=== PATIENT | female | born 1970 | race Caucasian/White ===

== ENCOUNTER 2016-11-11 12:24 | Emergency (ER) | payer MEDICAID ==
[~2016-11-11] VITALS: Ht 147.3 cm; Wt 73.9 kg
[~2016-11-11 12:24] MED LIST: OLANZAPINE5 MG PO
[2016-11-11 12:40] VITALS: BP 127/92
[2016-11-11] MEDS ORDERED: NACL 0.9% 1,000 ML IV ONE (13:20)
--- NOTE | 2016-11-11 13:40 | NUR ---
HEADACHE X2 DAYS WITH VOMITING; DENIES DIARRHEA; SKIN IS PINK/WARM/DRY; AAOX4 WITH EVEN AND STEADY GAIT; LUNGS CLEAR BL; HR EVEN AND REGULAR; PT DENIES ANY FEVER, CP, SOB, OR COUGH AT THIS TIME; PATIENT STATES PAIN OF 2/10 AT THIS TIME; VSS; PATIENT POSITIONED FOR COMFORT; HOB ELEVATED; BEDRAILS UP X2; BED DOWN. ER MADE AWARE OF PT STATUS. Addendum: 11/11/16 at 1610 by MEDARO C/O HEADACHE AND ABDOMINAL PAIN 10/10 X 2 DAYS
[2016-11-11] MEDS ORDERED: KETOROLAC 30 MG/ML VIAL IVP ONE (14:00)
[2016-11-11] MEDS ORDERED: ONDANSETRON 4 MG/2 ML VIAL IVP ONE (15:45)
--- NOTE | 2016-11-11 16:05 | NUR ---
AAO, COOPERATIVE ALBANIAN SPEAKING PT BEING ASSESS BY DR STOCKTON AT BEDSIDE
[2016-11-11 16:45] VITALS: BP 101/70
--- NOTE | 2016-11-11 16:45 | NUR ---
Patient discharged with v/s stable. Written and verbal after care instructions given and explained. Patient alert, oriented and verbalized understanding of instructions. Ambulatory with steady gait. All questions addressed prior to discharge. ID band removed. Patient advised to follow up with PMD. Rx of MOTRIN, ZOFRAN given. Patient educated on indication of medication including possible reaction and side effects. Opportunity to ask questions provided and answered.
== END 2016-11-11 16:45 | disposition home or self-care (01) ==
LOC: MED 12:24
DX: R51 Headache (principal); R11.0 Nausea; R10.13 Epigastric pain; E11.9 Type 2 diabetes mellitus without complications; I10 Essential (primary) hypertension; J02.9 Acute pharyngitis, unspecified; H92.09 Otalgia, unspecified ear; Z88.0 Allergy status to penicillin
CPT/HCPCS: 81002; 81025; 96361; 96374; 96375; 99284; J1885; J2405; J7030

== ENCOUNTER 2016-11-22 08:49 | Emergency (ER) | payer MEDICAID ==
[~2016-11-22] VITALS: Ht 152.4 cm; Wt 73.5 kg
[2016-11-22 09:05] VITALS: BP 134/65
--- NOTE | 2016-11-22 09:05 | NUR ---
Patient to bed 06.
--- NOTE | 2016-11-22 09:08 | NUR ---
46/F BIB SELF C/O BODYACHE X TODAY. PATIENT DENIES N/V/D; SKIN IS PINK/WARM/DRY; AAOX4 WITH EVEN AND STEADY GAIT; LUNGS CLEAR BL; HR EVEN AND REGULAR; PT DENIES ANY FEVER, CP, SOB, OR COUGH AT THIS TIME; PATIENT STATES PAIN OF 9/10 AT THIS TIME; VSS; PATIENT POSITIONED FOR COMFORT; HOB ELEVATED; BEDRAILS UP X2; BED DOWN. ER MD MADE AWARE OF PT STATUS.
--- NOTE | 2016-11-22 09:08 | NUR ---
Note undone in EDM - 11/22/16 at 0925 by [email or web address] 46/F BIB SELF C/O BODY ACH X TODAY. PATIENT DENIES N/V/D; SKIN IS PINK/WARM/DRY; AAOX4 WITH EVEN AND STEADY GAIT; LUNGS CLEAR BL; HR EVEN AND REGULAR; PT DENIES ANY FEVER, CP, SOB, OR COUGH AT THIS TIME; PATIENT STATES PAIN OF 9/10 AT THIS TIME; VSS; PATIENT POSITIONED FOR COMFORT; HOB ELEVATED; BEDRAILS UP X2; BED DOWN. ER MADE AWARE OF PT STATUS.
--- NOTE | 2016-11-22 09:20 | NUR ---
ER MD DR GUTIERREZ EVALUATING PT AT BEDSIDE.
[2016-11-22 10:17] VITALS: BP 122/65
--- NOTE | 2016-11-22 10:17 | NUR ---
Patient discharged with v/s stable. Written and verbal after care instructions given and explained. Patient alert, oriented and verbalized understanding of instructions. Ambulatory with steady gait. All questions addressed prior to discharge. ID band removed. Patient advised to follow up with PMD. Rx of DEXTROMETHORPHAN given. Patient educated on indication of medication including possible reaction and side effects. Opportunity to ask questions provided and answered.
== END 2016-11-22 10:17 | disposition home or self-care (01) ==
LOC: MED 08:49
DX: J30.9 Allergic rhinitis, unspecified (principal); E11.9 Type 2 diabetes mellitus without complications; I10 Essential (primary) hypertension; Z88.0 Allergy status to penicillin

== ENCOUNTER 2016-12-07 08:57 | Emergency (ER) | payer MEDICAID ==
[~2016-12-07] VITALS: Ht 147.3 cm; Wt 67.6 kg
[2016-12-07 09:42] VITALS: BP 113/66
--- NOTE | 2016-12-07 09:45 | NUR ---
LAB WAS DRAWN IMMEDIATELY AFTER TRIAGE--PT PROVIDED URINE SAMPLE. AFTERWARDS PT TO ER LOBBY TO WAIT FOR AVAILABLE ROOM
--- NOTE | 2016-12-07 10:32 | NUR ---
Joyce gonzalez in [facility] - 12/07/16 at 1035 by JUAN MANUEL PT AMBULATED TO BED 4 AT THIS TIME.
--- NOTE | 2016-12-07 10:40 | NUR ---
NO ANSWER OUT IN ER LOBBY
--- NOTE | 2016-12-07 10:46 | NUR ---
patient called from lobby no answer patient is lwbs.
== END 2016-12-07 10:43 | disposition left against medical advice (07) ==
LOC: MED 08:59
DX: R10.9 Unspecified abdominal pain (principal); R11.0 Nausea; Z53.21 Procedure and treatment not carried out due to patient leaving prior to being seen by health care provider

== ENCOUNTER 2016-12-15 13:29 | Emergency (ER) | payer MEDICAID ==
[~2016-12-15] VITALS: Ht 147.3 cm; Wt 73.9 kg
[2016-12-15 13:33] VITALS: BP 105/71
--- NOTE | 2016-12-15 13:39 | NUR ---
PT AMBULATED TO BED 6 AT THIS TIME.
--- NOTE | 2016-12-15 13:40 | NUR ---
46/F BIB SELF C/O HEADACHE X 2-3 DAYS; DENIES TRAUMA OR INJURY TO HEAD AT THIS TIME. PT DENIES N/V/D; SKIN IS PINK/WARM/DRY; AAOX4 WITH EVEN AND STEADY GAIT; LUNGS CLEAR BL; HR EVEN AND REGULAR; PT DENIES ANY FEVER, CP, SOB, OR COUGH AT THIS TIME; PATIENT STATES PAIN OF 10/10 AT THIS TIME; VSS; PATIENT POSITIONED FOR COMFORT; HOB ELEVATED; BEDRAILS UP X2; BED DOWN. ER MD MADE AWARE OF PT STATUS.
[2016-12-15 14:40] VITALS: BP 112/71
--- NOTE | 2016-12-15 14:40 | NUR ---
Patient discharged with v/s stable. Written and verbal after care instructions given and explained. Patient alert, oriented and verbalized understanding of instructions. Ambulatory with steady gait. All questions addressed prior to discharge. ID band removed. Patient advised to follow up with PMD. Rx of DEXTROMETHORPHAN & MOTRIN given. Patient educated on indication of medication including possible reaction and side effects. Opportunity to ask questions provided and answered.
== END 2016-12-15 14:40 | disposition home or self-care (01) ==
LOC: MED 13:29
DX: J06.9 Acute upper respiratory infection, unspecified (principal); I10 Essential (primary) hypertension; E11.9 Type 2 diabetes mellitus without complications; Z88.0 Allergy status to penicillin

== ENCOUNTER 2016-12-22 08:57 | Emergency (ER) | payer MEDICAID ==
[~2016-12-22] VITALS: Ht 157.5 cm; Wt 73.9 kg
[2016-12-22 09:04] VITALS: BP 111/64
--- NOTE | 2016-12-22 09:04 | NUR ---
46/F BIB SELF C/O N/V , RIGHT UPPER ABDOMINAL PAIN X 2 DAYS. SKIN IS PINK/WARM/DRY; AAOX4 WITH EVEN AND STEADY GAIT; LUNGS CLEAR BL; HR EVEN AND REGULAR; PT DENIES ANY FEVER, CP, SOB, OR COUGH AT THIS TIME; PATIENT STATES PAIN OF 10/10 AT THIS TIME; VSS; PATIENT POSITIONED FOR COMFORT; HOB ELEVATED; BEDRAILS UP X2; BED DOWN. ER MD MADE AWARE OF PT STATUS.
[2016-12-22] MEDS ORDERED: KETOROLAC 60 MG/2 ML VIAL IM ONE (09:30)
[2016-12-22] MEDS ORDERED: ONDANSETRON 4 MG ODT PO ONE (09:30)
[2016-12-22 10:36] VITALS: BP 111/64
--- NOTE | 2016-12-22 10:36 | NUR ---
Patient discharged with v/s stable. Written and verbal after care instructions given and explained. Patient alert, oriented and verbalized understanding of instructions. Ambulatory with steady gait. All questions addressed prior to discharge. ID band removed. Patient advised to follow up with PMD. Rx of MOTRIN & ZOFRAN given. Patient educated on indication of medication including possible reaction and side effects. Opportunity to ask questions provided and answered.
== END 2016-12-22 10:36 | disposition home or self-care (01) ==
LOC: MED 08:58
DX: J02.9 Acute pharyngitis, unspecified (principal); R51 Headache; E11.9 Type 2 diabetes mellitus without complications; I10 Essential (primary) hypertension; Z88.0 Allergy status to penicillin
CPT/HCPCS: 81002; 81025; 82948; 96372; 99283; J1885; S0119

== ENCOUNTER 2017-01-04 09:10 | Emergency (ER) | payer MEDICAID ==
[~2017-01-04] VITALS: Ht 147.3 cm; Wt 69.0 kg
[2017-01-04 09:11] VITALS: BP 115/95
--- NOTE | 2017-01-04 11:06 | NUR ---
PATIENT CALLED FROM LOBBY NO ANSWER PATIENT IS LWBS.
== END 2017-01-04 11:06 | disposition left against medical advice (07) ==
LOC: MED 09:10
DX: R52 Pain, unspecified (principal); Z53.21 Procedure and treatment not carried out due to patient leaving prior to being seen by health care provider

== ENCOUNTER 2017-01-12 09:09 | Emergency (ER) | payer MEDICAID ==
[~2017-01-12] VITALS: Ht 154.9 cm; Wt 73.5 kg
[2017-01-12 09:33] VITALS: BP 121/87
--- NOTE | 2017-01-12 10:47 | NUR ---
PATIENT LEFT WITHOUT BEING SEEN BY DR. GUTIERREZ. NO FURTHER CARE PROVIDED FOR PATIENT.
== END 2017-01-12 10:47 | disposition left against medical advice (07) ==
LOC: MED 09:09
DX: R51 Headache (principal); R11.2 Nausea with vomiting, unspecified; Z53.21 Procedure and treatment not carried out due to patient leaving prior to being seen by health care provider

== ENCOUNTER 2017-01-21 08:33 | Emergency (ER) | payer MEDICAID ==
[~2017-01-21] VITALS: Ht 157.5 cm; Wt 72.6 kg
--- NOTE | 2017-01-21 08:54 | NUR ---
Patient ambulated to bed 05.
[2017-01-21 08:56] VITALS: BP 107/78
--- NOTE | 2017-01-21 09:00 | NUR ---
RECEIVED PATIENT ON BED WITH CO NAUSEA,VOMITING AND DIARRHEA FOR 3 DAYS.
--- NOTE | 2017-01-21 09:24 | NUR ---
Dr. Reynoso evaluating patient at bedside.
--- NOTE | 2017-01-21 09:27 | NUR ---
Joyce gonzalez in ED - 01/21/17 at 0928 by MNURML ARDEN UPDATED ABOUT PATIENTS CONDITION.USE OF 4 POINT RESTRAINTS.
[2017-01-21] MEDS ORDERED: ONDANSETRON 4 MG ODT PO ONE (09:35)
[2017-01-21 10:00] VITALS: BP 124/82
--- NOTE | 2017-01-21 10:00 | NUR ---
Patient discharged with v/s stable. Written and verbal after care instructions given and explained. Patient alert, oriented and verbalized understanding of instructions. Ambulatory with steady gait. All questions addressed prior to discharge. ID band removed. Patient advised to follow up with PMD. Rx of ZOFRAN,MOTRIN AND CIPRO given. Patient educated on indication of medication including possible reaction and side effects. Opportunity to ask questions provided and answered.
== END 2017-01-21 10:00 | disposition home or self-care (01) ==
LOC: MED 08:33
DX: R10.13 Epigastric pain (principal); R30.0 Dysuria; R11.2 Nausea with vomiting, unspecified; E11.9 Type 2 diabetes mellitus without complications; I10 Essential (primary) hypertension; Z88.0 Allergy status to penicillin
CPT/HCPCS: 99283; S0119

== ENCOUNTER 2017-02-03 10:07 | Emergency (ER) | payer MEDICAID ==
[~2017-02-03] VITALS: Ht 147.3 cm; Wt 74.8 kg
--- NOTE | 2017-02-03 10:30 | NUR ---
Patient ambulated to bed 06.
[2017-02-03 10:36] VITALS: BP 103/71
--- NOTE | 2017-02-03 10:42 | NUR ---
Dr. Valentino evaluating patient at bedside.
[2017-02-03] MEDS ORDERED: ONDANSETRON 4 MG ODT PO ONE (10:45)
[2017-02-03] MEDS ORDERED: LIDOCAINE VISCOUS 2% 20 ML UDC PO ONE (10:45)
--- NOTE | 2017-02-03 10:57 | NUR ---
46/F presents to ED for evaluation of abdominal pain, sore throat that started this morning. Pt also c/o N/V/D, fever. Pt noted with no vomiting or fever at this time. Abdomen is soft, non tender, hyperactive bowel sounds x4 quadrants. Patient is AOX4, tajik speaking. Ambulates with steady gait. Pt also c/o burning with urination and dysuria. Denies any vaginal bleeding or discharge. VSS
--- NOTE | 2017-02-03 11:15 | NUR ---
Urine dip perform and shown to Dr. Valentino.
--- NOTE | 2017-02-03 11:34 | NUR ---
Patient appears to be resting comfortably in bed. Vital Signs within normal limits. Respirations even and unlabored.
[2017-02-03 12:22] VITALS: BP 119/71
--- NOTE | 2017-02-03 12:23 | NUR ---
Patient discharged with v/s stable. Written and verbal after care instructions given and explained. Patient alert, oriented and verbalized understanding of instructions. Ambulatory with steady gait. All questions addressed prior to discharge. ID band removed. Patient advised to follow up with PMD. Rx of BENTYL, ZOFRAN AND CHLORASCEPTIC given. Patient educated on indication of medication including possible reaction and side effects. Opportunity to ask questions provided and answered.
== END 2017-02-03 12:23 | disposition home or self-care (01) ==
LOC: MED 10:07
DX: B34.9 Viral infection, unspecified (principal); E11.9 Type 2 diabetes mellitus without complications; I10 Essential (primary) hypertension; F17.200 Nicotine dependence, unspecified, uncomplicated; Z71.6 Tobacco abuse counseling; Z88.0 Allergy status to penicillin
CPT/HCPCS: 81002; 81025; 82948; 99283; S0119

== ENCOUNTER 2017-02-13 08:20 | Emergency (ER) | payer MEDICAID ==
[~2017-02-13] VITALS: Ht 147.3 cm; Wt 68.9 kg
[2017-02-13 08:24] VITALS: BP 127/56
[2017-02-13] MEDS ORDERED: NACL 0.9% 1,000 ML IV SCH (08:31)
[2017-02-13] MEDS ORDERED: ONDANSETRON 4 MG/2 ML VIAL IVP ONE (08:35)
[2017-02-13] MEDS ORDERED: FAMOTIDINE 20 MG/2 ML VIAL IVP ONE (08:35)
--- NOTE | 2017-02-13 08:38 | NUR ---
Patient ambulated to bed 06.
--- NOTE | 2017-02-13 08:45 | NUR ---
PATIENT PRESENTS TO ED WITH RUQ PAIN . PT STATES SHE HAS LOOSE STOOL AND VOMITTED TODAY ; SKIN IS PINK/WARM/DRY; AAOX4 WITH EVEN AND STEADY GAIT; LUNGS CLEAR BL; HR EVEN AND REGULAR; PT DENIES ANY FEVER, CP, SOB, OR COUGH AT THIS TIME; PATIENT STATES PAIN OF 7/10 AT THIS TIME; PATIENT POSITIONED FOR COMFORT; HOB ELEVATED; BEDRAILS UP X2; BED DOWN. ER MD MADE AWARE OF PT STATUS.
[2017-02-13 09:00] LABS: BASOPHILS # (AUTO) 0.1 K/uL (0.00-0.22); BASOPHILS % (AUTO) 1.7 % (0.0-2.0); EOSINOPHILS # (AUTO) 0.1 K/uL (0-0.4); HEMATOCRIT 41.5 % (36-48); HEMOGLOBIN 13.7 g/dL (12.0-16.0); LYMPHOCYTES # (AUTO) 2.1 K/uL (2.5-16.5); MEAN CORPUSCULAR HEMOGLOBIN 29 pg (27-31); MEAN CORPUSCULAR HGB CONC 33 g/dL (33-37); MEAN CORPUSCULAR VOLUME 89 fL (80-94); MONOCYTES # (AUTO) 0.4 K/uL (0.8-1.0); MONOCYTES % (AUTO) 4.8 % (1.7-9.3); NEUTROPHILS # (AUTO) 5.5 K/uL (1.8-7.7); NEUTROPHILS % (AUTO) 67.5 % (42.2-75.2); PLATELET COUNT (AUTO) 254 K/uL (140-450); RED BLOOD CELL COUNT(AUTO) 4.66 MIL/uL (4.20-5.40); RED CELL DISTRIBUTION WIDTH 11.7 % (11.6-13.7); WHITE BLOOD COUNT (AUTO) 8.2 K/uL (4.8-10.8)
[2017-02-13 09:15] LABS: ANION GAP 12.2 (8-16); CALCIUM 8.9 mg/dL (8.5-10.1); CARBON DIOXIDE 26.8 mmol/L (21-32); CREATININE 0.8 mg/dL (0.6-1.3)
[2017-02-13 09:20] LABS: ALBUMIN 3.8 g/dL (3.4-5.0); TOTAL BILIRUBIN 0.3 mg/dL (0.0-1.0)
--- NOTE | 2017-02-13 09:21 | NUR ---
PT VERBALIZES DECREASE OF PAIN FROM 7/10 TO 2/10.
--- NOTE | 2017-02-13 09:22 | NUR ---
DR ANDRADE AT [facility].
--- NOTE | 2017-02-13 09:39 | NUR ---
Patient discharged with v/s stable. Written and verbal after care instructions given and explained. Patient alert, oriented and verbalized understanding of instructions. Ambulatory with steady gait. All questions addressed prior to discharge. ID band removed. Patient advised to follow up with PMD. Rx of KEFLEX ANDTYLENOL given. Patient educated on indication of medication including possible reaction and side effects. Opportunity to ask questions provided and answered.ADVISED PT TO INCREASE FLUID INTAKE.
[2017-02-13 09:40] VITALS: BP 126/68
== END 2017-02-13 09:39 | disposition home or self-care (01) ==
LOC: MED 08:20
DX: N30.90 Cystitis, unspecified without hematuria (principal); E11.9 Type 2 diabetes mellitus without complications; I10 Essential (primary) hypertension; F17.210 Nicotine dependence, cigarettes, uncomplicated; Z88.0 Allergy status to penicillin
CPT/HCPCS: 36415; 80053; 81002; 81025; 82150; 82948; 83690; 85025; 96361; 96374; 96375; 99284; J2405; J3490; J7030

== ENCOUNTER 2017-02-17 10:26 | Emergency (ER) | payer MEDICAID ==
[~2017-02-17] VITALS: Ht 147.3 cm; Wt 73.9 kg
[2017-02-17 11:17] VITALS: BP 140/77
--- NOTE | 2017-02-17 12:41 | NUR ---
PATIENT LEFT WITHOUT BEING SEEN BY DR. RIVERA. NO FURTHER CARE PROVIDED FOR PATIENT.
== END 2017-02-17 12:41 | disposition left against medical advice (07) ==
LOC: MED 10:26
DX: R10.9 Unspecified abdominal pain (principal); Z53.21 Procedure and treatment not carried out due to patient leaving prior to being seen by health care provider

== ENCOUNTER 2017-02-24 09:49 | Emergency (ER) | payer MEDICAID ==
[~2017-02-24] VITALS: Ht 147.3 cm; Wt 73.9 kg
--- NOTE | 2017-02-24 09:58 | NUR ---
Patient ambulated to bed 6. ACRYLIC FABRICATOR evaluating patient at bedside.
--- NOTE | 2017-02-24 09:59 | NUR ---
Dr. Valentino evaluating patient at bedside.
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
[2017-02-24 10:03] VITALS: BP 138/75
[2017-02-24] MEDS ORDERED: DICYCLOMINE HCL LIQUID 10 MG/5 ML UDC PO ONE (10:10)
[2017-02-24] MEDS ORDERED: DIPHENOXYLATE /ATROPINE 2.5 MG TAB PO ONE (10:10)
[2017-02-24 10:46] VITALS: BP 138/75
--- NOTE | 2017-02-24 10:48 | NUR ---
Patient discharged with v/s stable. Written and verbal after care instructions given and explained. Patient alert, oriented and verbalized understanding of instructions. Ambulatory with steady gait. All questions addressed prior to discharge. ID band removed. Patient advised to follow up with PMD. Rx of BENTYL AND ZOFRAN given. Patient educated on indication of medication including possible reaction and side effects. Opportunity to ask questions provided and answered.
== END 2017-02-24 10:38 | disposition home or self-care (01) ==
LOC: MED 09:51
DX: R19.7 Diarrhea, unspecified (principal); R10.9 Unspecified abdominal pain; E11.9 Type 2 diabetes mellitus without complications; I10 Essential (primary) hypertension; Z88.0 Allergy status to penicillin
CPT/HCPCS: 99283

== ENCOUNTER 2017-03-10 07:15 | Emergency (ER) | payer MEDICAID ==
[~2017-03-10] VITALS: Ht 147.3 cm; Wt 69.4 kg
[2017-03-10 07:21] VITALS: BP 104/76
[2017-03-10 08:11] VITALS: BP 104/76
== END 2017-03-10 08:00 | disposition home or self-care (01) ==
LOC: MED 07:15
DX: J06.9 Acute upper respiratory infection, unspecified (principal); E11.9 Type 2 diabetes mellitus without complications; Z88.0 Allergy status to penicillin
CPT/HCPCS: 99281

== ENCOUNTER 2017-04-23 10:10 | Emergency (ER) | payer MEDICAID ==
[~2017-04-23] VITALS: Ht 144.8 cm; Wt 66.7 kg
[2017-04-23 10:24] VITALS: BP 108/76
[2017-04-23] MEDS ORDERED: ONDANSETRON 4 MG ODT PO ONE (10:30)
--- NOTE | 2017-04-23 10:30 | NUR ---
pt ambulate to restroom.
--- NOTE | 2017-04-23 10:50 | NUR ---
47F BIB SELF C/O VOMITING X 2 DAYS, ALSO C/O SALES TODAY. HX: PT DENIES. RX: P DENIES
--- NOTE | 2017-04-23 11:53 | NUR ---
Patient being evaluated by physician at bedside.
[2017-04-23 12:05] VITALS: BP 110/72
--- NOTE | 2017-04-23 12:05 | NUR ---
Patient discharged with v/s stable. Written and verbal after care instructions given and explained. Patient alert, oriented and verbalized understanding of instructions. Ambulatory with steady gait. All questions addressed prior to discharge. ID band removed. Patient advised to follow up with PMD. Rx of cipro and zofran given. Patient educated on indication of medication including possible reaction and side effects. Opportunity to ask questions provided and answered.
== END 2017-04-23 12:05 | disposition home or self-care (01) ==
LOC: MED 10:10
DX: N39.0 Urinary tract infection, site not specified (principal); R11.2 Nausea with vomiting, unspecified; Z88.0 Allergy status to penicillin; E11.9 Type 2 diabetes mellitus without complications; I10 Essential (primary) hypertension
CPT/HCPCS: 81002; 81025; 99283; S0119

== ENCOUNTER 2017-05-02 08:09 | Emergency (ER) | payer MEDICAID ==
[~2017-05-02] VITALS: Ht 144.8 cm; Wt 67.6 kg
[2017-05-02 08:17] VITALS: BP 103/77
--- NOTE | 2017-05-02 08:17 | NUR ---
PT AMBULATED TO BED 6.
--- NOTE | 2017-05-02 08:17 | NUR ---
47/F c/o N/V/D x3 days. Also c/o mouth pain, bilateral ear pain and throat pain. No vomiting noted while pt in ED. Pt c/o 10/10 pain, unable to describe pain. AOX4, guyanese speaking, calm and cooperative at this time. Skin warm and dry, normal in color for ethnicity. Afebrile. Abdomen soft, non tender active bowel sounds x4 quadrants. VSS.
[2017-05-02] MEDS ORDERED: ONDANSETRON 4 MG ODT PO ONE (08:20)
--- NOTE | 2017-05-02 08:20 | NUR ---
Patient ambulated to bed 6. RN evaluating patient at bedside.
--- NOTE | 2017-05-02 09:21 | NUR ---
Patient being evaluated by Dr. Rios at bedside.
[2017-05-02 10:14] VITALS: BP 103/77
== END 2017-05-02 09:21 | disposition home or self-care (01) ==
LOC: MED 08:09
DX: K52.9 Noninfective gastroenteritis and colitis, unspecified (principal); E11.9 Type 2 diabetes mellitus without complications; I10 Essential (primary) hypertension; Z88.0 Allergy status to penicillin
CPT/HCPCS: 99283; S0119

== ENCOUNTER 2017-05-15 12:15 | Emergency (ER) | payer MEDICAID ==
[~2017-05-15] VITALS: Ht 154.9 cm; Wt 74.8 kg
[2017-05-15 12:17] VITALS: BP 101/65
--- NOTE | 2017-05-15 15:03 | NUR ---
PATIENT CALLED FROM LOBBY NO ANSWER PATIEN IS LWBS.
== END 2017-05-15 15:03 | disposition left against medical advice (07) ==
LOC: MED 12:15
DX: R51 Headache (principal); Z53.21 Procedure and treatment not carried out due to patient leaving prior to being seen by health care provider; Z88.0 Allergy status to penicillin

== ENCOUNTER 2017-05-20 10:36 | Emergency (ER) | payer MEDICAID ==
[~2017-05-20] VITALS: Ht 147.3 cm; Wt 67.4 kg
[2017-05-20 10:43] VITALS: BP 112/67
--- NOTE | 2017-05-20 11:05 | NUR ---
PT C/O NAUSEA X THIS AM----DENIES EMESIS,DENIES ABDOMINAL PAIN, DENIES DYSURIA . DENIES DIARRHEA ; SKIN IS PINK/WARM/DRY; AAOX4 WITH EVEN AND STEADY GAIT; LUNGS CLEAR BL; HR EVEN AND REGULAR; PT DENIES ANY FEVER, CP, SOB, OR COUGH AT THIS TIME; PATIENT STATES PAIN OF 0/10 AT THIS TIME; VSS; PATIENT POSITIONED FOR COMFORT; HOB ELEVATED; BEDRAILS UP X2; BED DOWN. ER MD MADE AWARE OF PT STATUS.
[2017-05-20 11:59] VITALS: BP 112/67
== END 2017-05-20 12:00 | disposition home or self-care (01) ==
LOC: MED 10:36
DX: K52.9 Noninfective gastroenteritis and colitis, unspecified (principal); Z88.0 Allergy status to penicillin; J45.909 Unspecified asthma, uncomplicated; E11.9 Type 2 diabetes mellitus without complications; I10 Essential (primary) hypertension; F20.9 Schizophrenia, unspecified
CPT/HCPCS: 99283

== ENCOUNTER 2017-05-28 16:46 | Emergency (ER) | payer MEDICAID ==
[~2017-05-28] VITALS: Ht 147.3 cm; Wt 73.9 kg
[2017-05-28 17:10] VITALS: BP 122/71
--- NOTE | 2017-05-28 18:48 | NUR ---
CALLED TO A BED NO ANSWER
== END 2017-05-28 18:48 | disposition left against medical advice (07) ==
LOC: MED 16:46
DX: R11.2 Nausea with vomiting, unspecified (principal); Z53.21 Procedure and treatment not carried out due to patient leaving prior to being seen by health care provider

== ENCOUNTER 2017-05-30 15:49 | Inpatient (IN) | payer MEDICAID ==
[~2017-05-30] VITALS: Ht 160 cm; Wt 70.8 kg
[2017-05-30 15:50] VITALS: BP 115/74
[2017-05-30 16:10] LABS: BASOPHILS # (AUTO) 0.3 K/uL (0.00-0.22); BASOPHILS % (AUTO) 3.2 % (0.0-2.0); EOSINOPHILS # (AUTO) 0.2 K/uL (0-0.4); EOSINOPHILS % (AUTO) 1.7 % (0.0-4.0); HEMATOCRIT 37.8 % (36-48); HEMOGLOBIN 12.4 g/dL (12.0-16.0); LYMPHOCYTES # (AUTO) 1.4 K/uL (2.5-16.5); LYMPHOCYTES % (AUTO) 14.1 % (20.5-51.1); MEAN CORPUSCULAR HEMOGLOBIN 29 pg (27-31); MEAN CORPUSCULAR HGB CONC 33 g/dL (33-37); MEAN CORPUSCULAR VOLUME 90 fL (80-94); MONOCYTES # (AUTO) 0.2 K/uL (0.8-1.0); MONOCYTES % (AUTO) 2.3 % (1.7-9.3); NEUTROPHILS # (AUTO) 8.1 K/uL (1.8-7.7); NEUTROPHILS % (AUTO) 78.7 % (42.2-75.2); PLATELET COUNT (AUTO) 267 K/uL (140-450); RED BLOOD CELL COUNT(AUTO) 4.21 MIL/uL (4.20-5.40); WHITE BLOOD COUNT (AUTO) 10.2 K/uL (4.8-10.8)
[2017-05-30 16:25] LABS: ANION GAP 16.9 (8-16); CARBON DIOXIDE 21.9 mmol/L (21-32); CHLORIDE 107 mmol/L (98-107); GFR ARICAN-AMERICAN 76 mL/min (>90); GLUCOSE 123 mg/dL (74-106); POTASSIUM 3.8 mmol/L (3.5-5.1); SODIUM SERUM 142 mmol/L (136-145); UREA NITROGEN, BLOOD 19 mg/dL (7-18)
[2017-05-30 16:33] LABS: ALBUMIN 4.1 g/dL (3.4-5.0); ASPARTATE AMINOTRANSFERASE 21 U/L (15-37); TOTAL BILIRUBIN 0.5 mg/dL (0.0-1.0)
[2017-05-30 16:35] LABS: ACETAMINOPHEN < 0.5 ug/ml (10-30); SALICYLATE < 2.8 mg/dL (2.8-20.0)
[2017-05-30] MEDS ORDERED: NACL 0.9% 1,000 ML IV ONE (16:55)
[2017-05-30 17:17] LABS: BARBITURATE, URINE NEG. ng/ml (NEG <=200); BENZODIAZEPINE, URINE NEG. ng/mL (NEG <=200); CANNABINOID, URINE NEG. ng/mL (NEG <=50); COCAINE, URINE NEG. ng/mL (NEG <=300); OPIATE, URINE NEG. ng/mL (NEG <=2000); PHENCYCLIDINE SCREEN,URINE NEG. ng/mL (NEG <=25)
[2017-05-30 17:35] LABS: APPEARANCE,URINE HAZY (CLEAR); BILIRUBIN,URINE NEGATIVE (NEGATIVE); BLOOD, URINE TRACE-I (NEGATIVE); COLOR,URINE YELLOW (YELLOW); LEUKOCYTE ESTERASE ,URINE NEGATIVE (NEGATIVE); NITRITE, URINE NEGATIVE (NEGATIVE); UGLUCOSE NEGATIVE (NEGATIVE)
[2017-05-30] MEDS ORDERED: KETOROLAC 30 MG/ML VIAL IVP ONE (17:35)
[2017-05-30] MEDS ORDERED: ONDANSETRON 4 MG/2 ML VIAL IVP ONE (17:35)
[2017-05-30 17:37] LABS: RBC,URINE 0-5 /HPF (0-5); WBC,URINE 0-5 /HPF (0-5)
[2017-05-30 17:38] LABS: HYALINE CASTS, URINE 0-10 /LPF (None Seen)
[2017-05-30] MEDS: NACL 0.9% 1,000 ML IV SCH (18:01)
[2017-05-30] MEDS ORDERED: DOCUSATE SODIUM 100 MG GELCAP PO PRN (18:05)
[2017-05-30] MEDS ORDERED: HYDROcodone/APAP 7.5/325 MG 1 TAB PO PRN (18:05)
[2017-05-30] MEDS ORDERED: MORPHINE SULFATE 2 MG/ML SYR IVP PRN (18:05)
[2017-05-30] MEDS ORDERED: ONDANSETRON 4 MG/2 ML VIAL IM/IVP PRN (18:05)
[2017-05-30 18:30] VITALS: BP 124/55
[2017-05-30] MEDS ORDERED: MECLIZINE 25 MG TAB PO ONE (18:30)
[2017-05-30 18:46] LABS: CHOL/HDL RATIO 3.9 (1-4.5); FREE T4 (FREE THYROXINE) 1.1 ng/dL (0.76-1.46); MAGNESIUM 1.7 mg/dL (1.8-2.4); THYROID STIMULATING HORMONE 1.06 uIU/mL (0.34-3.74)
[2017-05-30] MEDS ORDERED: SODIUM PHOS / POTASSIUM PHOS 1 PKT PDR PO SCH (19:05)
[2017-05-30] MEDS ORDERED: MAG SULF 2000 MG/WATER PREMIX 50 ML IV ONE (19:05)
[2017-05-30 20:00] VITALS: BP 128/76
[2017-05-30] MEDS ORDERED: INSULIN LISPRO SLIDING SCALE 100 UNITS/ML VIAL SUBQ PRN (20:50)
[2017-05-31] VITALS: BP 105/52
[2017-05-31] MEDS: NACL 0.9% 1,000 ML IV SCH ×3 (03:07→21:19)
[2017-05-31 04:00] VITALS: BP 100/71
[2017-05-31 05:25] LABS: BASOPHILS # (AUTO) 0.1 K/uL (0.00-0.22); BASOPHILS % (AUTO) 1.5 % (0.0-2.0); EOSINOPHILS # (AUTO) 0.2 K/uL (0-0.4); EOSINOPHILS % (AUTO) 1.7 % (0.0-4.0); HEMATOCRIT 35.9 % (36-48); LYMPHOCYTES # (AUTO) 3.1 K/uL (2.5-16.5); MEAN CORPUSCULAR HEMOGLOBIN 30 pg (27-31); MEAN CORPUSCULAR HGB CONC 34 g/dL (33-37); MEAN CORPUSCULAR VOLUME 90 fL (80-94); MONOCYTES # (AUTO) 0.6 K/uL (0.8-1.0); MONOCYTES % (AUTO) 6.1 % (1.7-9.3); NEUTROPHILS % (AUTO) 59.7 % (42.2-75.2); PLATELET COUNT (AUTO) 252 K/uL (140-450); RED CELL DISTRIBUTION WIDTH 12.1 % (11.6-13.7)
[2017-05-31 06:05] LABS: ANION GAP 15.1 (8-16); CARBON DIOXIDE 25.6 mmol/L (21-32); CREATININE 0.7 mg/dL (0.6-1.3); MAGNESIUM 2.7 mg/dL (1.8-2.4); PHOSPHORUS 2.5 mg/dL (2.5-4.9); POTASSIUM 3.7 mmol/L (3.5-5.1)
[2017-05-31] MEDS: BLOOD GLUCOSE MONITORING 1 DEV DEV FS SCH ×4 (06:44→21:18)
[2017-05-31 08:00] VITALS: BP 98/58
[2017-05-31] MEDS: ATORVASTATIN 20 MG TAB PO SCH (08:16)
[2017-05-31] MEDS: ASPIRIN 81 MG TAB.CHEW PO SCH (08:17)
[2017-05-31] MEDS ORDERED: ATORVASTATIN 20 MG TAB PO SCH (09:00)
[2017-05-31] MEDS ORDERED: QUEtiapine FUMARATE 25 MG TAB PO SCH (11:07)
[2017-05-31 12:00] VITALS: BP 101/42
[2017-05-31 16:00] VITALS: BP 100/78
[2017-05-31 20:00] VITALS: BP 100/53
[2017-05-31] MEDS: QUEtiapine FUMARATE 25 MG TAB PO SCH (21:17)
[2017-06-01] VITALS: BP 95/53
[2017-06-01] MEDS: NACL 0.9% 1,000 ML IV SCH ×3 (01:11→16:30)
[2017-06-01] MEDS: BLOOD GLUCOSE MONITORING 1 DEV DEV FS SCH ×4 (06:23→20:50)
[2017-06-01 06:25] LABS: HEMATOCRIT 32.4 % (36-48); HEMOGLOBIN 10.7 g/dL (12.0-16.0); MEAN CORPUSCULAR HEMOGLOBIN 30 pg (27-31); MEAN CORPUSCULAR HGB CONC 33 g/dL (33-37); MEAN CORPUSCULAR VOLUME 90 fL (80-94); PLATELET COUNT (AUTO) 196 K/uL (140-450); RED CELL DISTRIBUTION WIDTH 12.9 % (11.6-13.7); WHITE BLOOD COUNT (AUTO) 6.9 K/uL (4.8-10.8)
[2017-06-01 06:37] LABS: ANION GAP 11.3 (8-16); CREATININE 0.6 mg/dL (0.6-1.3); POTASSIUM 4.3 mmol/L (3.5-5.1)
[2017-06-01 06:39] LABS: PHOSPHORUS 2.8 mg/dL (2.5-4.9)
[2017-06-01 07:02] LABS: EOSINOPHILS % (MANUAL) 3 % (0-4); LYMPHOCYTES % (MANUAL) 50 % (20-46); MONOCYTES % (MANUAL) 5 % (5-12)
[2017-06-01 08:00] VITALS: BP 103/56
[2017-06-01] MEDS: ASPIRIN 81 MG TAB.CHEW PO SCH (08:04)
[2017-06-01] MEDS: ATORVASTATIN 20 MG TAB PO SCH (08:04)
[2017-06-01] MEDS: QUEtiapine FUMARATE 25 MG TAB PO SCH ×2 (08:04→20:50)
[2017-06-01] MEDS: CALCIUM CARB/VIT-D 500 MG/200 IU 1 TAB PO SCH ×2 (12:17→17:10)
[2017-06-01 16:00] VITALS: BP 127/82
[2017-06-01] MEDS: ACETAMINOPHEN 325 MG TAB PO PRN ×2 (16:27→20:50)
[2017-06-02] MEDS: NACL 0.9% 1,000 ML IV SCH ×2 (00:37→08:34)
[2017-06-02 01:06] VITALS: BP 114/77
[2017-06-02] MEDS: BLOOD GLUCOSE MONITORING 1 DEV DEV FS SCH ×2 (07:13→11:28)
[2017-06-02 08:00] VITALS: BP 102/50
[2017-06-02] MEDS: QUEtiapine FUMARATE 25 MG TAB PO SCH (08:32)
[2017-06-02] MEDS: ATORVASTATIN 20 MG TAB PO SCH (08:32)
[2017-06-02] MEDS: ASPIRIN 81 MG TAB.CHEW PO SCH (08:32)
[2017-06-02] MEDS: CALCIUM CARB/VIT-D 500 MG/200 IU 1 TAB PO SCH ×2 (08:32→12:12)
[2017-06-02] MEDS ORDERED: QUET200T PO (10:29)
== END 2017-06-02 15:35 | disposition home or self-care (01) | DRG 48 ==
LOC: MED 15:49 → MTU 17:56
PROVIDERS: ADMIT Family Medicine; ATTEND Family Medicine
DX: G90.9 Disorder of the autonomic nervous system, unspecified (principal); G93.41 Metabolic encephalopathy; E83.42 Hypomagnesemia; E83.39 Other disorders of phosphorus metabolism; E10.43 Type 1 diabetes mellitus with diabetic autonomic (poly)neuropathy; R55 Syncope and collapse; K59.00 Constipation, unspecified; E83.51 Hypocalcemia; E78.5 Hyperlipidemia, unspecified; W18.39XA Other fall on same level, initial encounter; F20.9 Schizophrenia, unspecified; F32.9 Major depressive disorder, single episode, unspecified; J45.909 Unspecified asthma, uncomplicated; I10 Essential (primary) hypertension; N83.202 Unspecified ovarian cyst, left side; N83.201 Unspecified ovarian cyst, right side; Z88.0 Allergy status to penicillin; Y93.89 Activity, other specified; Y92.89 Other specified places as the place of occurrence of the external cause
CPT/HCPCS: 36415; 36600; 70450; 71010; 72125; 80048; 80053; 80305; 81001; 81025; 82150; 82803; 82948; 83036; 83690; 83735; 83880; 84100; 84436; 84439; 84443; 84479; 84484; 85025; 85610; 85730; 87081; 93005; 93880; 93925; 93970; 96374; 96375; 99285; C1758; G0480; G0482; J1815; J1885; J2405; J3475; J7030; Q0092

== ENCOUNTER 2017-06-12 17:03 | Emergency (ER) | payer MEDICAID ==
[~2017-06-12] VITALS: Ht 157.5 cm; Wt 67.6 kg
[~2017-06-12 17:03] MED LIST changes: -OLANZAPINE5 MG PO; +QUET200T PO
--- NOTE | 2017-06-12 17:03 | NUR ---
Patient BIBA ACLS, transferred to bed 5. RN evaluating patient at bedside.
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
[2017-06-12 17:11] VITALS: BP 111/66
--- NOTE | 2017-06-12 18:04 | NUR ---
PT DENIES ANY PAIN AT THIS TIME.Patient appears to be resting comfortably in bed. Vital Signs within normal limits. Respirations even and unlabored.WILL CONTINUE TO MONITOR.
[2017-06-12 18:20] LABS: APPEARANCE,URINE CLEAR (CLEAR); BILIRUBIN,URINE NEGATIVE (NEGATIVE); BLOOD, URINE NEGATIVE (NEGATIVE); COLOR,URINE YELLOW (YELLOW); LEUKOCYTE ESTERASE ,URINE NEGATIVE (NEGATIVE); NITRITE, URINE NEGATIVE (NEGATIVE); PH,URINE 6.5 (5.0-9.0); UGLUCOSE NEGATIVE (NEGATIVE)
[2017-06-12 18:23] VITALS: BP 109/75
--- NOTE | 2017-06-12 18:23 | NUR ---
Patient discharged with v/s stable. Written and verbal after care instructions given and explained. Patient verbalized understanding. Ambulatory with steady gait. All questions addressed prior to discharge. Advised to follow up with PMD.
== END 2017-06-12 18:23 | disposition home or self-care (01) ==
LOC: MED 17:03
DX: R30.0 Dysuria (principal); J45.909 Unspecified asthma, uncomplicated; E11.9 Type 2 diabetes mellitus without complications; I10 Essential (primary) hypertension; Z88.0 Allergy status to penicillin; Z79.899 Other long term (current) drug therapy
CPT/HCPCS: 81003; 81025; 99283

== ENCOUNTER 2017-08-17 07:43 | Emergency (ER) | payer MEDICAID ==
[~2017-08-17] VITALS: Ht 147.3 cm; Wt 65.3 kg
[2017-08-17 07:54] VITALS: BP 122/71
--- NOTE | 2017-08-17 08:10 | NUR ---
ASSUMED PATIENT CARE, CONCUR WITH TRIAGE ASSESSMENTS. PATIENT ENDORSING 2 DAYS OF N/V/D, FEVER, AND GENERALIZED MALAISE. PLACED IN ER 12. ORIENTED TO PLAN OF CARE.
[2017-08-17] MEDS ORDERED: ONDANSETRON 4 MG ODT PO ONE (08:55)
[2017-08-17] MEDS ORDERED: KETOROLAC 60 MG/2 ML VIAL IM ONE (08:55)
--- NOTE | 2017-08-17 09:01 | NUR ---
SEEN AND EVALUATED BY PROVIDER, MSE COMPLETED.
--- NOTE | 2017-08-17 09:20 | NUR ---
MEDICATED FOR PAIN AND NAUSEA PER MD ORDER, WILL REEVALUATE ACCORDINGLY.
[2017-08-17 09:38] VITALS: BP 99/72
--- NOTE | 2017-08-17 09:39 | NUR ---
DC HOME WITH INSTRUCTIONS AND PRESCRIPTIONS, PATIENT ENDORSING UNDERSTANDING OF ALL INSTRUCTIONS, VERBALIZING RELIEF FROM SYMPTOMS, VSWNL, NO DISTRESS. DC HOME AMBULATORY.
== END 2017-08-17 09:39 | disposition home or self-care (01) ==
LOC: MED 07:43
DX: J02.9 Acute pharyngitis, unspecified (principal); R51 Headache; R11.2 Nausea with vomiting, unspecified; E11.9 Type 2 diabetes mellitus without complications; I10 Essential (primary) hypertension; Z88.0 Allergy status to penicillin; Z79.899 Other long term (current) drug therapy
CPT/HCPCS: 81002; 81025; 96372; 99283; J1885; S0119

== ENCOUNTER 2017-09-18 09:32 | Emergency (ER) | payer MEDICAID ==
[~2017-09-18] VITALS: Ht 157.5 cm; Wt 72.6 kg
--- NOTE | 2017-09-18 09:32 | NUR ---
Patient was BIBA and taken to bed 02 via gurney per EMS.
[2017-09-18 09:33] VITALS: BP 127/84
--- NOTE | 2017-09-18 09:34 | NUR ---
47 /F BIB EMS FROM FIELD FOR FIELD FOR FALL WITH ABRASION TO NOSE AND SWOLLEN LIP. DENIES LOC.PER EMS PT DRANK BEER.DENIES N/V/D; SKIN IS PINK/WARM/DRY; AAOX4. LUNGS CLEAR BL; HR EVEN AND REGULAR; P PATIENT STATES PAIN OF 5/10 AT THIS TIME; PATIENT POSITIONED FOR COMFORT; HOB ELEVATED; BEDRAILS UP X2; BED DOWN. ER MD MADE AWARE OF PT STATUS.
--- NOTE | 2017-09-18 09:51 | NUR ---
Patient being evaluated by DR GUTIERREZ at bedside.
[2017-09-18] MEDS ORDERED: ONDANSETRON 4 MG/2 ML VIAL IM ONE (09:55)
[2017-09-18 10:36] VITALS: BP 132/77
--- NOTE | 2017-09-18 10:36 | NUR ---
Patient discharged with v/s stable. Written and verbal after care instructions given and explained. Patient alert, oriented and verbalized understanding of instructions. Ambulatory with steady gait. All questions addressed prior to discharge. ID band removed. Patient advised to follow up with PMD. Rx of ZOFRAN ODT given. Patient educated on indication of medication including possible reaction and side effects. Opportunity to ask questions provided and answered.
== END 2017-09-18 10:36 | disposition home or self-care (01) ==
LOC: MED 09:32
DX: S00.33XA Contusion of nose, initial encounter (principal); S00.81XA Abrasion of other part of head, initial encounter; E11.9 Type 2 diabetes mellitus without complications; I10 Essential (primary) hypertension; Z88.0 Allergy status to penicillin; A08.4 Viral intestinal infection, unspecified; W18.30XA Fall on same level, unspecified, initial encounter; Y93.89 Activity, other specified; Y92.89 Other specified places as the place of occurrence of the external cause; Y99.8 Other external cause status
CPT/HCPCS: 70160; 96372; 99284; J2405

== ENCOUNTER 2017-10-20 09:03 | Emergency (ER) | payer MEDICAID ==
[~2017-10-20] VITALS: Ht 144.8 cm; Wt 64.4 kg
[2017-10-20 09:13] VITALS: BP 127/86
--- NOTE | 2017-10-20 09:15 | NUR ---
PT TAKEN TO BED 1.
--- NOTE | 2017-10-20 09:19 | NUR ---
PATIENT PRESENTS TO ED WITH c/o N/V/ AND DIARRHEA W/ ABD PAIN . PT STATES SHE HAS SALES TOO.SKIN IS PINK/WARM/DRY; AAOX4 WITH EVEN AND STEADY GAIT; LUNGS CLEAR BL; HR EVEN AND REGULAR; PT DENIES ANY FEVER, CP, SOB, OR COUGH AT THIS TIME; PATIENT STATES PAIN OF 10/10 AT THIS TIME;PATIENT POSITIONED FOR COMFORT; MD WILL BE NOTIFIED;
--- NOTE | 2017-10-20 09:48 | NUR ---
DR NG EVALUATING PT.
[2017-10-20 10:00] VITALS: BP 108/58
--- NOTE | 2017-10-20 10:00 | NUR ---
Patient discharged with v/s stable. Written and verbal after care instructions given and explained. Patient alert, oriented and verbalized understanding of instructions. Ambulatory with steady gait. All questions addressed prior to discharge. ID band removed. Patient advised to follow up with PMD. Rx of PROMETHAZINE AND SYNALAR TOPICAL OINTMENT given. Patient educated on indication of medication including possible reaction and side effects. Opportunity to ask questions provided and answered.
== END 2017-10-20 10:00 | disposition home or self-care (01) ==
LOC: MED 09:03
DX: S30.861A Insect bite (nonvenomous) of abdominal wall, initial encounter (principal); B34.9 Viral infection, unspecified; E11.9 Type 2 diabetes mellitus without complications; I10 Essential (primary) hypertension; Z88.0 Allergy status to penicillin; W57.XXXA Bitten or stung by nonvenomous insect and other nonvenomous arthropods, initial encounter; Y93.89 Activity, other specified; Y92.89 Other specified places as the place of occurrence of the external cause; Y99.8 Other external cause status
CPT/HCPCS: 99283

== ENCOUNTER 2017-10-27 08:30 | Emergency (ER) | payer MEDICAID ==
[~2017-10-27] VITALS: Ht 144.8 cm; Wt 64.4 kg
[2017-10-27 08:46] VITALS: BP 115/97
--- NOTE | 2017-10-27 08:50 | NUR ---
Pt taken to bed 4.
--- NOTE | 2017-10-27 09:01 | NUR ---
PT PRESENTS TO ER WITH C/O NAUSEA, MID EPIGASTRIC PAIN X 1 WEEK, WORSENING THIS AM. DENIES CHEST PAIN OR SOB. ABD SOFT, NT, ROUND. RESP EVEN AND UNLABORED, IN NAD.
--- NOTE | 2017-10-27 11:29 | NUR ---
DR HÉCTOR SLOAN FOR EXAM
[2017-10-27 12:04] VITALS: BP 136/72
--- NOTE | 2017-10-27 12:04 | NUR ---
Patient discharged with v/s stable. Written and verbal after care instructions given and explained. Patient alert, oriented and verbalized understanding of instructions. Ambulatory with steady gait. All questions addressed prior to discharge. ID band removed. Patient advised to follow up with PMD. Rx of ZOFRAN, IBUPROFEN given. Patient educated on indication of medication including possible reaction and side effects. Opportunity to ask questions provided and answered.
== END 2017-10-27 12:04 | disposition home or self-care (01) ==
LOC: MED 08:30
DX: K52.9 Noninfective gastroenteritis and colitis, unspecified (principal); F20.9 Schizophrenia, unspecified; E11.9 Type 2 diabetes mellitus without complications; I10 Essential (primary) hypertension; Z88.0 Allergy status to penicillin
CPT/HCPCS: 99283

== ENCOUNTER 2017-11-18 11:41 | Emergency (ER) | payer MEDICAID ==
[~2017-11-18] VITALS: Ht 157.5 cm; Wt 72.6 kg
[2017-11-18 11:44] VITALS: BP 115/85
--- NOTE | 2017-11-18 12:00 | NUR ---
PT AMBULATED TO [facility] ROOM FOR AVAILABLE ROOM FOR MD WAN
--- NOTE | 2017-11-18 12:20 | NUR ---
NO ANSWER IN ER LOBBY
--- NOTE | 2017-11-18 12:30 | NUR ---
NO ANSWER IN ER LOBBY
== END 2017-11-18 12:38 | disposition left against medical advice (07) ==
LOC: MED 11:41
DX: R10.9 Unspecified abdominal pain (principal); Z53.21 Procedure and treatment not carried out due to patient leaving prior to being seen by health care provider

== ENCOUNTER 2017-12-02 15:05 | Emergency (ER) | payer MEDICAID ==
[~2017-12-02] VITALS: Ht 144.8 cm; Wt 65.8 kg
[2017-12-02 15:20] VITALS: BP 107/66
[2017-12-02] MEDS ORDERED: KETOROLAC 30 MG/ML VIAL IM ONE (15:55)
[2017-12-02 17:19] VITALS: BP 114/63
== END 2017-12-02 17:19 | disposition home or self-care (01) ==
LOC: MED 15:05
DX: R51 Headache (principal); B34.9 Viral infection, unspecified; E11.9 Type 2 diabetes mellitus without complications; I10 Essential (primary) hypertension; Z79.899 Other long term (current) drug therapy; Z88.0 Allergy status to penicillin
CPT/HCPCS: 82948; 96372; 99283; J1885

== ENCOUNTER 2017-12-31 11:34 | Emergency (ER) | payer MEDICAID ==
[~2017-12-31] VITALS: Ht 154.9 cm; Wt 67.6 kg
[2017-12-31 11:37] VITALS: BP 132/84
--- NOTE | 2017-12-31 11:50 | NUR ---
PT. ARRIVED C/O OF NON RADIATING GENERALIZED ABD PAIN , ABD IS SOFT NON TENDER TO TOUCH , LAST BM WAS ON 12/30/17, COMPLAINS OF NAUSEA FOR ABOUT 3 DAYS AND VOMITING FOR 1 DAYS , WITH NO DIAHRRHEA, LMP 3 WEEKS AGO. COMPLAINS OF GRADUAL FRONTAL HEADACHE THAT DOES NOT RADIATE WITH NO VISUAL CHANGES, ABLE TO FOLLOW PEN WITH EYES , NO COMPLAINTS OF DIZZINESS AT THE MOMENT .. PT. REPORTS A PAIN OF 10/10 . AAAX4. MEDICAL HX OF HTN AND DM, AND STATES TO BE ALLERGIC TO PCN.
[2017-12-31] MEDS ORDERED: NACL 0.9% 1,000 ML IV ONE (12:00)
[2017-12-31] MEDS ORDERED: KETOROLAC 30 MG/ML VIAL IVP ONE (12:00)
[2017-12-31] MEDS ORDERED: ONDANSETRON 4 MG/2 ML VIAL IVP ONE (12:00)
--- NOTE | 2017-12-31 12:23 | NUR ---
NO ACUTE CHNAGES IN CONDITION, PT IN NAD, WITH EYES CLOSEDM, EASILY AROUSABLE. VSS
[2017-12-31 12:27] LABS: BASOPHILS # (AUTO) 0.3 K/uL (0.00-0.22); BASOPHILS % (AUTO) 3.9 % (0.0-2.0); EOSINOPHILS % (AUTO) 0.6 % (0.0-4.0); HEMATOCRIT 39.4 % (36-48); HEMOGLOBIN 13.2 g/dL (12.0-16.0); LYMPHOCYTES # (AUTO) 2.1 K/uL (2.5-16.5); LYMPHOCYTES % (AUTO) 27.6 % (20.5-51.1); MEAN CORPUSCULAR HEMOGLOBIN 28 pg (27-31); MEAN CORPUSCULAR HGB CONC 33 g/dL (33-37); MEAN CORPUSCULAR VOLUME 84.1 fL (80-94); MONOCYTES # (AUTO) 0.4 K/uL (0.8-1.0); MONOCYTES % (AUTO) 5.3 % (1.7-9.3); NEUTROPHILS # (AUTO) 4.6 K/uL (1.8-7.7); NEUTROPHILS % (AUTO) 62.6 % (42.2-75.2); PLATELET COUNT (AUTO) 275 K/uL (140-450); RED BLOOD CELL COUNT(AUTO) 4.68 MIL/uL (4.20-5.40); RED CELL DISTRIBUTION WIDTH 15.4 % (11.6-13.7); WHITE BLOOD COUNT (AUTO) 7.4 K/uL (4.8-10.8)
[2017-12-31 12:33] LABS: APPEARANCE,URINE CLEAR (CLEAR); BILIRUBIN,URINE NEGATIVE (NEGATIVE); BLOOD, URINE TRACE-L (NEGATIVE); COLOR,URINE YELLOW (YELLOW); LEUKOCYTE ESTERASE ,URINE NEGATIVE (NEGATIVE); NITRITE, URINE NEGATIVE (NEGATIVE); UGLUCOSE NEGATIVE (NEGATIVE)
[2017-12-31 12:34] LABS: ANION GAP 11.3 (8-16); CARBON DIOXIDE 31.8 mmol/L (21-32); CREATININE 0.7 mg/dL (0.6-1.3); POTASSIUM 4.1 mmol/L (3.5-5.1)
[2017-12-31 12:36] LABS: BARBITURATE, URINE NEG. ng/ml (NEG <=200); BENZODIAZEPINE, URINE NEG. ng/mL (NEG <=200); CANNABINOID, URINE NEG. ng/mL (NEG <=50); COCAINE, URINE NEG. ng/mL (NEG <=300); OPIATE, URINE NEG. ng/mL (NEG <=2000); PHENCYCLIDINE SCREEN,URINE NEG. ng/mL (NEG <=25)
[2017-12-31 12:40] LABS: ALBUMIN 3.8 g/dL (3.4-5.0); TOTAL BILIRUBIN 0.4 mg/dL (0.0-1.0)
[2017-12-31 12:43] LABS: RBC,URINE 0-5 (RARE) /HPF (0-5); WBC,URINE 0-5 (RARE) /HPF (0-5)
--- NOTE | 2017-12-31 14:11 | NUR ---
PT REPORTS FEELING BETTER, VSS. DR RAMOS UPDATED ON CONDITION.
--- NOTE | 2017-12-31 14:21 | NUR ---
INFLUENZA RESULTS NEGATIVE NOTIFIED
[2017-12-31 14:34] VITALS: BP 104/58
--- NOTE | 2017-12-31 14:35 | NUR ---
Patient discharged with v/s stable. Written and verbal after care instructions given and explained. Patient alert, oriented and verbalized understanding of instructions. Ambulatory with steady gait. All questions addressed prior to discharge. ID band removed. Patient advised to follow up with PMD. Rx of ZOFRAN 4MG given. Patient educated on indication of medication including possible reaction and side effects. Opportunity to ask questions provided and answered.
--- NOTE | 2018-01-13 08:35 | NUR ---
CLARIFIED; IVF 0.9% NACL 1000ML WIDE OPEN VIA L AC 22G. START TIME AT 1245 ON 12/31/17, AND END TIME AT 1400 ON 12/31/17.
== END 2017-12-31 14:35 | disposition home or self-care (01) ==
LOC: MED 11:34
DX: R11.2 Nausea with vomiting, unspecified (principal); R10.9 Unspecified abdominal pain; R51 Headache; E11.9 Type 2 diabetes mellitus without complications; I10 Essential (primary) hypertension; Z79.899 Other long term (current) drug therapy; Z88.0 Allergy status to penicillin
CPT/HCPCS: 36415; 74176; 80053; 80305; 81001; 81025; 83690; 85025; 87804; 96361; 96374; 96375; 99285; J1885; J2405

== ENCOUNTER 2018-01-19 14:00 | Emergency (ER) | payer MEDICAID ==
[~2018-01-19] VITALS: Ht 167.6 cm; Wt 72.6 kg
[2018-01-19 14:05] VITALS: BP 125/73
[2018-01-19 16:02] VITALS: BP 123/72
== END 2018-01-19 16:02 | disposition home or self-care (01) ==
LOC: MED 14:00
DX: R11.10 Vomiting, unspecified (principal); R19.7 Diarrhea, unspecified; R10.9 Unspecified abdominal pain; F20.9 Schizophrenia, unspecified; Z88.0 Allergy status to penicillin
CPT/HCPCS: 81002; 99283

== ENCOUNTER 2018-02-16 10:51 | Emergency (ER) | payer MEDICAID ==
[~2018-02-16] VITALS: Ht 147.3 cm; Wt 65.5 kg
[2018-02-16 10:57] VITALS: BP 116/84
--- NOTE | 2018-02-16 11:01 | NUR ---
PT AMBULATES BACK TO THE LOBBY
--- NOTE | 2018-02-16 11:30 | NUR ---
PT AMBULATED TO BED 9
--- NOTE | 2018-02-16 11:35 | NUR ---
PT. CAME INTO ED W/ C/O LOWER ABD PAIN AND DIAHRRHEA X 2 DAYS. PT. STATES " I HAVE HAD DIAHRRHEA FOR 2 DAYS I HAVE ONLY GONE ONCE TODAY AND ALSO MY LOWER STOMACH HURTS AND I JUST CAME BACK FROM [place] BUT DID NOT DRINK". PT. HAS 5/10 PAIN IN HER LOWER ABD THAT IS NON RADIATING AND DESCRIBED SHARP. DENIES N/V, PT HAS HAD DIAHRRHEA FOR 2 DAYS AND SAYS " I HAVE ONLY GONE ONCE TODAY" SHE DENIES HAVING ANY BLOOD IN HER STOOL. AAOX4, RR EVEN AND UNLABORED, DENIES SOB, DENIES CHEST PAIN. ER MD NOTIFIED. WILL CONTINUE TO MONITOR.
--- NOTE | 2018-02-16 12:27 | NUR ---
XRAY AT BEDSIDE
[2018-02-16 12:56] LABS: APPEARANCE,URINE HAZY (CLEAR); BILIRUBIN,URINE 1+ (NEGATIVE); BLOOD, URINE 1+ (NEGATIVE); COLOR,URINE YELLOW (YELLOW); LEUKOCYTE ESTERASE ,URINE TRACE (NEGATIVE); NITRITE, URINE NEGATIVE (NEGATIVE); UGLUCOSE NEGATIVE (NEGATIVE)
[2018-02-16 13:00] VITALS: BP 122/84
--- NOTE | 2018-02-16 13:00 | NUR ---
Patient discharged with v/s stable. Written and verbal after care instructions given and explained. Patient alert, oriented and verbalized understanding of instructions. Ambulatory with steady gait. All questions addressed prior to discharge. ID band removed. Patient advised to follow up with PMD. Rx of MACROBID given. Patient educated on indication of medication including possible reaction and side effects. Opportunity to ask questions provided and answered.
[2018-02-16 13:31] LABS: RBC,URINE NONE SEEN /HPF (0-5)
== END 2018-02-16 13:00 | disposition home or self-care (01) ==
LOC: MED 10:51
DX: N39.0 Urinary tract infection, site not specified (principal); R19.7 Diarrhea, unspecified; I10 Essential (primary) hypertension; E11.9 Type 2 diabetes mellitus without complications; Z88.0 Allergy status to penicillin
CPT/HCPCS: 74018; 81001; 81025; 87086; 99285

== ENCOUNTER 2018-03-06 07:41 | Emergency (ER) | payer MEDICAID ==
[~2018-03-06] VITALS: Ht 152.4 cm; Wt 66.7 kg
[2018-03-06 07:53] VITALS: BP 119/71
--- NOTE | 2018-03-06 07:57 | NUR ---
gave report to Lew POWELL
--- NOTE | 2018-03-06 07:58 | NUR ---
PATIENT AMBULATED TO BED 1.
--- NOTE | 2018-03-06 08:02 | NUR ---
PT. CAME INTO THE ED W/ C/O THROAT AND EAR PAIN X 3 DAYS. PT. STATES " MY THROAT AND EARS HURT AND I HAVE NOT BEEN FEELING WELL". PT. DENIES COUGH, DENIES FEVER. PT. DENIES VOMITING BUT DOES STATE "I HAVE BEEN NAUSEOUS X 2 DAYS". PT. SAYS SHE IS ABLE TO EAT AND DRINK AND HAS NOT HAD A DECREASED APPETITE. PT. IS AAOX4, RR EVEN AND UNLABORED. PT. HAS 10/10 PAIN IN HER THROAT AND EARS. PT. STATES ALLERGY TO PCN AND STATES THAT SHE SUFFERS FROM HTN, DM , AND ASTHMA, WHEN ASKED WHAT MEDICATIONS SHE TOOK SHE SAID " I DONT KNOW THE ONES FROM THE FAMILY". ER MD NOTIFIED. WILL CONTINUE TO MONITOR. PT. IS SITTING IN CHAIR.
[2018-03-06] MEDS ORDERED: METOCLOPRAMIDE 10 MG/2 ML INJ VIAL IVP ONE (08:25)
[2018-03-06] MEDS ORDERED: ACETAMINOPHEN EXTRA STRENGTH 500 MG TAB PO ONE (08:25)
[2018-03-06] MEDS ORDERED: NACL 0.9% 1,000 ML IV ONE (08:25)
--- NOTE | 2018-03-06 08:30 | NUR ---
THROAT SWAB FOR STREP AND NOSE SWAB FOR INFLUENZA OBTAINED. TOLERATED WELL
[2018-03-06] MEDS ORDERED: FAMOTIDINE 20 MG/2 ML VIAL IVP ONE (08:40)
[2018-03-06 08:54] LABS: BASOPHILS % (AUTO) 0.6 % (0.0-2.0); EOSINOPHILS % (AUTO) 0.7 % (0.0-4.0); HEMATOCRIT 39.1 % (36-48); HEMOGLOBIN 12.9 g/dL (12.0-16.0); LYMPHOCYTES # (AUTO) 2.1 K/uL (2.5-16.5); LYMPHOCYTES % (AUTO) 34.3 % (20.5-51.1); MEAN CORPUSCULAR HEMOGLOBIN 29 pg (27-31); MEAN CORPUSCULAR HGB CONC 33 g/dL (33-37); MEAN CORPUSCULAR VOLUME 88.6 fL (80-94); MONOCYTES # (AUTO) 0.3 K/uL (0.8-1.0); MONOCYTES % (AUTO) 5.1 % (1.7-9.3); NEUTROPHILS # (AUTO) 3.6 K/uL (1.8-7.7); NEUTROPHILS % (AUTO) 59.3 % (42.2-75.2); PLATELET COUNT (AUTO) 212 K/uL (140-450); RED BLOOD CELL COUNT(AUTO) 4.41 MIL/uL (4.20-5.40); RED CELL DISTRIBUTION WIDTH 13.2 % (11.6-13.7)
[2018-03-06 08:55] LABS: BILIRUBIN,URINE NEGATIVE (NEGATIVE); BLOOD, URINE 2+ (NEGATIVE); COLOR,URINE YELLOW (YELLOW); LEUKOCYTE ESTERASE ,URINE NEGATIVE (NEGATIVE); NITRITE, URINE NEGATIVE (NEGATIVE); PH,URINE 5.5 (5.0-9.0); UGLUCOSE NEGATIVE (NEGATIVE)
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
[2018-03-06 09:02] LABS: APPEARANCE,URINE SLIGHTLY HAZY (CLEAR)
[2018-03-06 09:04] LABS: RBC,URINE 3-10 (FEW) /HPF (0-5); WBC,URINE 0-5 (RARE) /HPF (0-5)
--- NOTE | 2018-03-06 09:40 | NUR ---
PT. RESTING COMFORTABLY IN BED RR EVEN AND UNLABORED, BED IN LOWEST POSITION, NS BOLUS RUNNING ACCORDINGLY W/O COMPLICATIONS , NO COMPLAINTS AT THIS TIME.WILL CONTINUE TO MONITOR.
[2018-03-06 10:16] LABS: ALBUMIN 3.7 g/dL (3.4-5.0); ANION GAP 11.9 (8-16); CARBON DIOXIDE 24.7 mmol/L (21-32); CREATININE 0.7 mg/dL (0.6-1.3); POTASSIUM 3.6 mmol/L (3.5-5.1); TOTAL BILIRUBIN 0.4 mg/dL (0.0-1.0)
[2018-03-06 10:36] VITALS: BP 120/74
--- NOTE | 2018-03-06 10:36 | NUR ---
Patient discharged with v/s stable. Written and verbal after care instructions given and explained. Patient alert, oriented and verbalized understanding of instructions. Ambulatory with steady gait. All questions addressed prior to discharge. ID band removed. Patient advised to follow up with PMD. Rx of ZOFRAN, TYLENOL EXTRA STRENGTH, PROMETHAZINE given. Patient educated on indication of medication including possible reaction and side effects. Opportunity to ask questions provided and answered.
== END 2018-03-06 10:36 | disposition home or self-care (01) ==
LOC: MED 07:41
DX: A08.4 Viral intestinal infection, unspecified (principal); J06.9 Acute upper respiratory infection, unspecified; J45.909 Unspecified asthma, uncomplicated; E11.9 Type 2 diabetes mellitus without complications; I10 Essential (primary) hypertension; Z88.0 Allergy status to penicillin
CPT/HCPCS: 36415; 80053; 81001; 81025; 85025; 87081; 87804; 96361; 96374; 96375; 99284; J2765; J3490; J7030

== ENCOUNTER 2018-03-19 15:44 | Emergency (ER) | payer MEDICAID ==
[~2018-03-19] VITALS: Ht 162.6 cm; Wt 68.0 kg
[2018-03-19 15:51] VITALS: BP 104/54
[2018-03-19] MEDS ORDERED: diphenhydrAMINE 50 MG/ML VIAL IVP ONE (16:35)
[2018-03-19] MEDS ORDERED: NACL 0.9% 1,000 ML IV SCH (16:35)
[2018-03-19] MEDS ORDERED: KETOROLAC 30 MG/ML VIAL IVP ONE (16:35)
[2018-03-19] MEDS ORDERED: HALOPERIDOL IM 5 MG/ML VIAL IVP ONE (16:40)
[2018-03-19 17:08] LABS: BASOPHILS % (AUTO) 0.5 % (0.0-2.0); EOSINOPHILS % (AUTO) 0.6 % (0.0-4.0); LYMPHOCYTES # (AUTO) 2.2 K/uL (2.5-16.5); LYMPHOCYTES % (AUTO) 30.1 % (20.5-51.1); MEAN CORPUSCULAR HEMOGLOBIN 30 pg (27-31); MEAN CORPUSCULAR HGB CONC 34 g/dL (33-37); MEAN CORPUSCULAR VOLUME 86.1 fL (80-94); MONOCYTES # (AUTO) 0.5 K/uL (0.8-1.0); MONOCYTES % (AUTO) 6.1 % (1.7-9.3); NEUTROPHILS # (AUTO) 4.7 K/uL (1.8-7.7); NEUTROPHILS % (AUTO) 62.7 % (42.2-75.2); PLATELET COUNT (AUTO) 220 K/uL (140-450); RED BLOOD CELL COUNT(AUTO) 4.41 MIL/uL (4.20-5.40); RED CELL DISTRIBUTION WIDTH 12.6 % (11.6-13.7); WHITE BLOOD COUNT (AUTO) 7.4 K/uL (4.8-10.8)
[2018-03-19 17:27] LABS: ALBUMIN 3.6 g/dL (3.4-5.0); ANION GAP 13.1 (8-16); CREATININE 0.8 mg/dL (0.6-1.3); POTASSIUM 4.1 mmol/L (3.5-5.1); TOTAL BILIRUBIN 0.3 mg/dL (0.0-1.0)
[2018-03-19 18:42] VITALS: BP 136/80
[2018-03-19 18:46] LABS: APPEARANCE,URINE CLEAR (CLEAR); BILIRUBIN,URINE NEGATIVE (NEGATIVE); BLOOD, URINE NEGATIVE (NEGATIVE); COLOR,URINE YELLOW (YELLOW); LEUKOCYTE ESTERASE ,URINE NEGATIVE (NEGATIVE); NITRITE, URINE NEGATIVE (NEGATIVE); PH,URINE 6.5 (5.0-9.0); UGLUCOSE NEGATIVE (NEGATIVE)
== END 2018-03-19 18:42 | disposition home or self-care (01) ==
LOC: MED 15:44
DX: R11.2 Nausea with vomiting, unspecified (principal); R19.7 Diarrhea, unspecified; R10.9 Unspecified abdominal pain; F25.9 Schizoaffective disorder, unspecified; J45.909 Unspecified asthma, uncomplicated; I10 Essential (primary) hypertension; E11.9 Type 2 diabetes mellitus without complications; Z88.0 Allergy status to penicillin
CPT/HCPCS: 36415; 80053; 81003; 82150; 83690; 85025; 96361; 96374; 96375; 99284; J1200; J1630; J1885; J7030

== ENCOUNTER 2018-04-16 12:34 | Emergency (ER) | payer MEDICAID ==
[~2018-04-16] VITALS: Ht 147.3 cm; Wt 73.5 kg
[2018-04-16 12:39] VITALS: BP 140/52
--- NOTE | 2018-04-16 12:53 | NUR ---
48 YO F TO ER FOR R UPPER TOOTH PAIN SINCE THIS MORNING. PT DENIES ANY TRAUMA. PT DENIES N/V/D/FEVER/CHILLS. PT AAOX4. GCS 15. CMS INTACT. RR EVEN AND UNLABORED. LUNGS BILATERALLY CLEAR. ABD SOFT, NON-TENDER. ER MD NOTIFIED. PT NEEDS MET. SAFETY PRECAUTIONS IN PLACE. WILL CONTINUE TO MONITOR.
--- NOTE | 2018-04-16 12:56 | NUR ---
ER MD EVALUATING PT AT BEDSIDE AT THIS TIME.
[2018-04-16 13:05] VITALS: BP 130/61
--- NOTE | 2018-04-16 13:05 | NUR ---
Note artiinna in EDM - 04/16/18 at 1307 by [email or web address] Patient discharged with v/s stable. Written and verbal after care instructions given and explained. Patient alert, oriented and verbalized understanding of instructions. Ambulatory with steady gait. All questions addressed prior to discharge. ID band removed. Patient advised to follow up with PMD. Rx of Zofran and penicillin given. Patient educated on indication of medication including possible reaction and side effects. Opportunity to ask questions provided and answered.
--- NOTE | 2018-04-16 13:07 | NUR ---
pt allergic to penicillin, er md notified. will amend discharge note if new order prescribed.
--- NOTE | 2018-04-16 13:41 | NUR ---
Patient discharged with v/s stable. Written and verbal after care instructions given and explained. Patient alert, oriented and verbalized understanding of instructions. Ambulatory with steady gait. All questions addressed prior to discharge. ID band removed. Patient advised to follow up with PMD. Rx of Zofran and Clindamycin given. Patient educated on indication of medication including possible reaction and side effects. Opportunity to ask questions provided and answered.
== END 2018-04-16 13:07 | disposition home or self-care (01) ==
LOC: MED 12:34
DX: K08.89 Other specified disorders of teeth and supporting structures (principal); F20.9 Schizophrenia, unspecified; J45.909 Unspecified asthma, uncomplicated; E11.9 Type 2 diabetes mellitus without complications; I10 Essential (primary) hypertension; Z79.899 Other long term (current) drug therapy; Z88.0 Allergy status to penicillin
CPT/HCPCS: 99283

== ENCOUNTER 2018-06-02 12:05 | Emergency (ER) | payer MEDICAID ==
[~2018-06-02] VITALS: Ht 142.2 cm; Wt 66.2 kg
[2018-06-02 12:14] VITALS: BP 91/62
--- NOTE | 2018-06-02 12:27 | NUR ---
PATIENT IS A 48 YO FEMALE BIB SELF FOR THROAT AND EAR PAIN, AWAKE AND ALERT MULTIPLE ER VISITS FOR COMMON COMPLAINTS. NO DISTRESS NOTED.
--- NOTE | 2018-06-02 13:01 | NUR ---
Patient appears to be resting comfortably in bed. Vital Signs within normal limits. Respirations even and unlabored.WILL CONTINUE TO MONITOR.
--- NOTE | 2018-06-02 13:35 | NUR ---
Patient being evaluated by DR HAMPTON at bedside.
[2018-06-02 14:35] LABS: APPEARANCE,URINE CLEAR (CLEAR); BILIRUBIN,URINE NEGATIVE (NEGATIVE); BLOOD, URINE TRACE-L (NEGATIVE); COLOR,URINE YELLOW (YELLOW); LEUKOCYTE ESTERASE ,URINE NEGATIVE (NEGATIVE); NITRITE, URINE NEGATIVE (NEGATIVE); UGLUCOSE NEGATIVE (NEGATIVE)
[2018-06-02 14:54] LABS: RBC,URINE 0-5 (RARE) /HPF (0-5); WBC,URINE 0-5 (RARE) /HPF (0-5)
[2018-06-02 15:24] VITALS: BP 106/61
--- NOTE | 2018-06-02 15:24 | NUR ---
Patient discharged with v/s stable. Written and verbal after care instructions given and explained. Patient alert, oriented and verbalized understanding of instructions. Ambulatory with steady gait. All questions addressed prior to discharge. ID band removed. Patient advised to follow up with PMD. Rx of ROBITUSSIN given. Patient educated on indication of medication including possible reaction and side effects. Opportunity to ask questions provided and answered.
== END 2018-06-02 15:24 | disposition home or self-care (01) ==
LOC: MED 12:05
DX: J06.9 Acute upper respiratory infection, unspecified (principal); J45.909 Unspecified asthma, uncomplicated; E11.9 Type 2 diabetes mellitus without complications; I10 Essential (primary) hypertension; Z88.0 Allergy status to penicillin; Z79.899 Other long term (current) drug therapy
CPT/HCPCS: 81001; 82948; 99283

== ENCOUNTER 2018-07-06 09:11 | Emergency (ER) | payer MEDICAID ==
[~2018-07-06] VITALS: Ht 152.4 cm; Wt 73.5 kg
--- NOTE | 2018-07-06 09:12 | NUR ---
PT BIBA TO ER BED 07
[2018-07-06 09:20] VITALS: BP 121/79
--- NOTE | 2018-07-06 09:24 | NUR ---
PATIENT PRESENTS TO ED WITH THE CHIEF C/O VOMITING . PT STATES VOMITING TARTED SINCE THIS MORNING. PT SATTED SHE IS NAUSATED HAS DIARRHEA TOO. SKIN IS PINK/WARM/DRY; AAOX4 WITH EVEN AND STEADY GAIT; LUNGS CLEAR BL; HR EVEN AND REGULAR; PT DENIES ANY FEVER, CP, SOB, OR COUGH AT THIS TIME; PATIENT STATES ABDOMINAL PAIN OF 10/10 AT THIS TIME; VSS; PATIENT POSITIONED FOR COMFORT; HOB ELEVATED; BEDRAILS UP X2; BED DOWN. ER MD MADE AWARE OF PT STATUS.
[2018-07-06] MEDS ORDERED: NACL 0.9% 1,000 ML IV SCH (09:36)
[2018-07-06] MEDS ORDERED: NACL 0.9% 1,000 ML IV ONE (09:36)
[2018-07-06] MEDS ORDERED: ONDANSETRON 4 MG/2 ML VIAL IVP ONE (09:40)
[2018-07-06 10:31] LABS: BASOPHILS % (AUTO) 0.3 % (0.0-2.0); EOSINOPHILS % (AUTO) 0.4 % (0.0-4.0); HEMATOCRIT 39.7 % (36-48); HEMOGLOBIN 13.4 g/dL (12.0-16.0); LYMPHOCYTES # (AUTO) 2.1 K/uL (2.5-16.5); LYMPHOCYTES % (AUTO) 23.8 % (20.5-51.1); MEAN CORPUSCULAR HEMOGLOBIN 30 pg (27-31); MEAN CORPUSCULAR HGB CONC 34 g/dL (33-37); MEAN CORPUSCULAR VOLUME 89.5 fL (80-94); MONOCYTES # (AUTO) 0.5 K/uL (0.8-1.0); MONOCYTES % (AUTO) 6.3 % (1.7-9.3); NEUTROPHILS % (AUTO) 69.2 % (42.2-75.2); PLATELET COUNT (AUTO) 213 K/uL (140-450); RED BLOOD CELL COUNT(AUTO) 4.43 MIL/uL (4.20-5.40); RED CELL DISTRIBUTION WIDTH 13.3 % (11.6-13.7); WHITE BLOOD COUNT (AUTO) 8.7 K/uL (4.8-10.8)
[2018-07-06 10:34] LABS: APPEARANCE,URINE CLEAR (CLEAR); BILIRUBIN,URINE NEGATIVE (NEGATIVE); BLOOD, URINE TRACE-I (NEGATIVE); COLOR,URINE YELLOW (YELLOW); LEUKOCYTE ESTERASE ,URINE NEGATIVE (NEGATIVE); NITRITE, URINE NEGATIVE (NEGATIVE); PH,URINE 6.5 (5.0-9.0); UGLUCOSE NEGATIVE (NEGATIVE)
--- NOTE | 2018-07-06 10:47 | NUR ---
RESTING IN BED COMFORTABLY. VERBALIZED DECREASED PAIN. VS WNL. WILL CONTINUE TO MONITOR.
[2018-07-06 11:05] LABS: ALBUMIN 3.8 g/dL (3.4-5.0); ANION GAP 7.1 (8-16); CARBON DIOXIDE 28.9 mmol/L (21-32); CREATININE 0.7 mg/dL (0.6-1.3); MAGNESIUM 1.7 mg/dL (1.8-2.4); PHOSPHORUS 3.1 mg/dL (2.5-4.9); TOTAL BILIRUBIN 0.3 mg/dL (0.0-1.0)
[2018-07-06 11:24] LABS: RBC,URINE 0-5 (RARE) /HPF (0-5); WBC,URINE 0-5 (RARE) /HPF (0-5)
[2018-07-06] MEDS ORDERED: ACETAMINOPHEN EXTRA STRENGTH 500 MG TAB PO ONE (11:25)
--- NOTE | 2018-07-06 12:10 | NUR ---
SPOKE TO CHRIS SHEIKH ,PSYCHIATRIST GAVE NEEDED INFORMATION FOR TELEPSYCH. CONSULT.
[2018-07-06] MEDS ORDERED: LORazepam 2 MG/ML VIAL IVP ONE (12:55)
[2018-07-06 14:10] LABS: SALICYLATE < 2.8 mg/dL (2.8-20.0)
[2018-07-06 14:21] LABS: BARBITURATE, URINE NEG. ng/ml (NEG <=200); BENZODIAZEPINE, URINE NEG. ng/mL (NEG <=200); CANNABINOID, URINE NEG. ng/mL (NEG <=50); COCAINE, URINE NEG. ng/mL (NEG <=300); OPIATE, URINE NEG. ng/mL (NEG <=2000); PHENCYCLIDINE SCREEN,URINE NEG. ng/mL (NEG <=25)
--- NOTE | 2018-07-06 15:24 | NUR ---
Patient discharged with v/s stable. Written and verbal after care instructions given and explained. Patient alert, oriented and verbalized understanding of instructions. Ambulatory with steady gait. All questions addressed prior to discharge. ID band removed. Patient advised to follow up with PMD. Rx of SEROQUEL AND ZOFRAN given. Patient educated on indication of medication including possible reaction and side effects. Opportunity to ask questions provided and answered.
[2018-07-06 15:25] VITALS: BP 95/50
== END 2018-07-06 15:24 | disposition home or self-care (01) ==
LOC: MED 09:11
DX: R44.0 Auditory hallucinations (principal); R11.2 Nausea with vomiting, unspecified; R19.7 Diarrhea, unspecified; R51 Headache; E11.9 Type 2 diabetes mellitus without complications; I10 Essential (primary) hypertension; Z88.0 Allergy status to penicillin; Z79.899 Other long term (current) drug therapy
CPT/HCPCS: 36415; 70450; 74177; 80053; 80305; 81001; 81025; 82948; 83690; 83735; 84100; 84484; 84703; 85025; 93005; 96361; 96374; 96375; 99285; G0480; G0482; J2060; J2405; J7030; Q9967

== ENCOUNTER 2018-07-18 09:22 | Emergency (ER) | payer MEDICAID ==
[~2018-07-18] VITALS: Ht 154.9 cm; Wt 72.6 kg
[2018-07-18 09:33] VITALS: BP 103/66
[2018-07-18 10:59] VITALS: BP 99/70
== END 2018-07-18 11:00 | disposition home or self-care (01) ==
LOC: MED 09:22
DX: J06.9 Acute upper respiratory infection, unspecified (principal); E11.9 Type 2 diabetes mellitus without complications; I10 Essential (primary) hypertension; E78.00 Pure hypercholesterolemia, unspecified; F20.9 Schizophrenia, unspecified; Z88.0 Allergy status to penicillin; Z79.899 Other long term (current) drug therapy
CPT/HCPCS: 99283

== ENCOUNTER 2018-07-30 08:47 | Emergency (ER) | payer MEDICAID ==
[~2018-07-30] VITALS: Ht 147.3 cm; Wt 72.6 kg
[2018-07-30 08:52] VITALS: BP 150/98
--- NOTE | 2018-07-30 08:57 | NUR ---
PATIENT BIB AMBULANCE TO ED WITH THE CHIEF C/O HEADACHE AND THROAT PAIN. PT STATES PAIN STARTED 2 DAYS AGO. HAS NAUSEA. DENIES V/D; SKIN IS PINK/WARM/DRY; AAOX2 WITH EVEN AND STEADY GAIT; LUNGS CLEAR BL; HR EVEN AND REGULAR; PT DENIES ANY FEVER, CP, SOB, OR COUGH AT THIS TIME; PATIENT STATES PAIN OF 10/10 AT THIS TIME; VSS; PATIENT POSITIONED FOR COMFORT; HOB ELEVATED; BEDRAILS UP X2; BED DOWN. ER MD MADE AWARE OF PT STATUS.
--- NOTE | 2018-07-30 08:59 | NUR ---
Dr. Carrion evaluating patient at bedside.
--- NOTE | 2018-07-30 09:55 | NUR ---
Pt. appeaars to be relaxed lying in bed comfortably. VS WNL. Denies nausea, pain at this time. Will continue to monitor.
[2018-07-30 10:13] LABS: BASOPHILS % (AUTO) 0.5 % (0.0-2.0); EOSINOPHILS # (AUTO) 0.1 K/uL (0-0.4); EOSINOPHILS % (AUTO) 1.2 % (0.0-4.0); HEMATOCRIT 38.5 % (36-48); HEMOGLOBIN 12.7 g/dL (12.0-16.0); LYMPHOCYTES # (AUTO) 2.6 K/uL (2.5-16.5); LYMPHOCYTES % (AUTO) 34.2 % (20.5-51.1); MEAN CORPUSCULAR HEMOGLOBIN 30 pg (27-31); MEAN CORPUSCULAR HGB CONC 33 g/dL (33-37); MEAN CORPUSCULAR VOLUME 90.9 fL (80-94); MONOCYTES # (AUTO) 0.5 K/uL (0.8-1.0); MONOCYTES % (AUTO) 5.9 % (1.7-9.3); NEUTROPHILS # (AUTO) 4.4 K/uL (1.8-7.7); NEUTROPHILS % (AUTO) 58.2 % (42.2-75.2); PLATELET COUNT (AUTO) 217 K/uL (140-450); RED BLOOD CELL COUNT(AUTO) 4.24 MIL/uL (4.20-5.40); RED CELL DISTRIBUTION WIDTH 13.3 % (11.6-13.7); WHITE BLOOD COUNT (AUTO) 7.6 K/uL (4.8-10.8)
[2018-07-30 10:33] LABS: ANION GAP 11.1 (8-16); CARBON DIOXIDE 24.3 mmol/L (21-32); POTASSIUM 4.4 mmol/L (3.5-5.1)
[2018-07-30 10:40] LABS: BILIRUBIN,URINE NEGATIVE (NEGATIVE); BLOOD, URINE NEGATIVE (NEGATIVE); COLOR,URINE YELLOW (YELLOW); LEUKOCYTE ESTERASE ,URINE NEGATIVE (NEGATIVE); NITRITE, URINE NEGATIVE (NEGATIVE); UGLUCOSE NEGATIVE (NEGATIVE)
[2018-07-30 10:41] LABS: ACETAMINOPHEN 5.9 ug/ml (10-30); ALBUMIN 3.4 g/dL (3.4-5.0); TOTAL BILIRUBIN 0.4 mg/dL (0.0-1.0)
[2018-07-30 10:56] LABS: BARBITURATE, URINE NEG. ng/ml (NEG <=200); BENZODIAZEPINE, URINE NEG. ng/mL (NEG <=200); CANNABINOID, URINE NEG. ng/mL (NEG <=50); COCAINE, URINE NEG. ng/mL (NEG <=300); PHENCYCLIDINE SCREEN,URINE NEG. ng/mL (NEG <=25)
[2018-07-30 10:57] LABS: APPEARANCE,URINE CLEAR (CLEAR); RBC,URINE 0-5 (RARE) /HPF (0-5); WBC,URINE 0-5 (RARE) /HPF (0-5)
[2018-07-30 11:13] VITALS: BP 109/41
[2018-07-30 11:39] LABS: OPIATE, URINE NEG. ng/mL (NEG <=2000)
== END 2018-07-30 11:11 | disposition home or self-care (01) ==
LOC: MED 08:47
DX: J02.9 Acute pharyngitis, unspecified (principal); E11.9 Type 2 diabetes mellitus without complications; I10 Essential (primary) hypertension; F20.9 Schizophrenia, unspecified; F12.10 Cannabis abuse, uncomplicated; Z88.0 Allergy status to penicillin; Z79.899 Other long term (current) drug therapy
CPT/HCPCS: 36415; 80053; 80305; 81001; 81025; 85025; 99284; G0480

== ENCOUNTER 2018-08-22 08:14 | Emergency (ER) | payer MEDICAID ==
[~2018-08-22] VITALS: Ht 147.3 cm; Wt 73.5 kg
[2018-08-22 08:25] VITALS: BP 131/80
[2018-08-22] MEDS ORDERED: ACETAMINOPHEN EXTRA STRENGTH 500 MG TAB PO ONE (08:25)
[2018-08-22 08:35] VITALS: BP 131/80
== END 2018-08-22 08:31 | disposition home or self-care (01) ==
LOC: MED 08:14
DX: J06.9 Acute upper respiratory infection, unspecified (principal); R51 Headache; F17.200 Nicotine dependence, unspecified, uncomplicated; Z88.0 Allergy status to penicillin; Z79.899 Other long term (current) drug therapy
CPT/HCPCS: 99282

== ENCOUNTER 2018-09-13 09:50 | Emergency (ER) | payer MEDICAID ==
[~2018-09-13] VITALS: Ht 147.3 cm; Wt 73.5 kg
[2018-09-13 09:52] VITALS: BP 111/69
--- NOTE | 2018-09-13 09:59 | NUR ---
Patient ambulated to bed 9. RN evaluating patient at bedside.
--- NOTE | 2018-09-13 10:00 | NUR ---
PATIENT PRESENTS TO ED WITH COMPLAINTS OF COUGH FOR 4 DAYS. PT STATES HER FAMILY TOLD HER TO GET OUT OF THE HOUSE AND GO TO THE HOSPITAL. DENIES N/V/D; SKIN IS PINK/WARM/DRY; AAOX4 WITH EVEN AND STEADY GAIT; LUNGS CLEAR BL; HR EVEN AND REGULAR; PT DENIES ANY FEVER, CP, SOB, OR COUGH AT THIS TIME; PATIENT STATES PAIN OF 0/10 AT THIS TIME; VSS; PATIENT POSITIONED FOR COMFORT; HOB ELEVATED; BEDRAILS UP X2; BED DOWN. ER MD MADE AWARE OF PT STATUS.
--- NOTE | 2018-09-13 10:48 | NUR ---
Patient discharged with v/s stable. Written and verbal after care instructions given and explained. Patient alert, oriented and verbalized understanding of instructions. Ambulatory with steady gait. All questions addressed prior to discharge. ID band removed. Patient advised to follow up with PMD. Rx of SUMIT TEIXEIRA given. Patient educated on indication of medication including possible reaction and side effects. Opportunity to ask questions provided and answered.
[2018-09-13 10:55] VITALS: BP 111/69
== END 2018-09-13 10:48 | disposition home or self-care (01) ==
LOC: MED 09:50
DX: J06.9 Acute upper respiratory infection, unspecified (principal); F20.9 Schizophrenia, unspecified; R11.2 Nausea with vomiting, unspecified; R19.7 Diarrhea, unspecified; Z88.0 Allergy status to penicillin; Z79.899 Other long term (current) drug therapy
CPT/HCPCS: 99283

== ENCOUNTER 2018-09-26 09:16 | Emergency (ER) | payer MEDICAID ==
[~2018-09-26] VITALS: Ht 144.8 cm; Wt 70.3 kg
[2018-09-26 09:34] VITALS: BP 120/65
--- NOTE | 2018-09-26 09:41 | NUR ---
PT AMBULATES TO BED 9
--- NOTE | 2018-09-26 09:47 | NUR ---
PATIENT PRESENTS TO ED WITH C/O HEADACHE AND THROAT PAIN . PT STATES SHE HAS BEEN HAVING HEADACHE AND THROAT PAIN X2DAYS . DENIES N/V/D; SKIN IS PINK/WARM/DRY; AAOX4 WITH EVEN AND STEADY GAIT; LUNGS CLEAR BL; HR EVEN AND REGULAR; PT DENIES ANY FEVER, CP, SOB, OR COUGH AT THIS TIME; PATIENT STATES PAIN OF 10/10 AT THIS TIME; VSS; PATIENT POSITIONED FOR COMFORT; HOB ELEVATED; BEDRAILS UP X2; BED DOWN. ER MD MADE AWARE OF PT STATUS.
--- NOTE | 2018-09-26 11:05 | NUR ---
Patient being evaluated by physician at bedside.
[2018-09-26] MEDS ORDERED: KETOROLAC 60 MG/2 ML VIAL IM ONE (11:10)
[2018-09-26 11:31] VITALS: BP 110/69
--- NOTE | 2018-09-26 11:32 | NUR ---
Patient discharged with v/s stable. Written and verbal after care instructions given and explained. Patient alert, oriented and verbalized understanding of instructions. Ambulatory with steady gait. All questions addressed prior to discharge. ID band removed. Patient advised to follow up with PMD. Rx of PROMETHAZINE AND MOTRIN given. Patient educated on indication of medication including possible reaction and side effects. Opportunity to ask questions provided and answered.
== END 2018-09-26 11:32 | disposition home or self-care (01) ==
LOC: MED 09:16
DX: J06.9 Acute upper respiratory infection, unspecified (principal); F20.9 Schizophrenia, unspecified; F17.210 Nicotine dependence, cigarettes, uncomplicated; Z88.0 Allergy status to penicillin; Z79.899 Other long term (current) drug therapy
CPT/HCPCS: 96372; 99283; J1885

== ENCOUNTER 2018-10-17 09:00 | Emergency (ER) | payer SELFPAY ==
--- NOTE | 2018-10-17 09:10 | NUR ---
CALLED FOR TRIAGE; NO RESPONSE
--- NOTE | 2018-10-17 09:33 | NUR ---
CALLED FOR TRIAGE; NO RESPONSE
== END 2018-10-17 09:10 | disposition left against medical advice (07) ==
LOC: MED 09:00
DX: R53.81 Other malaise (principal); Z53.21 Procedure and treatment not carried out due to patient leaving prior to being seen by health care provider

== ENCOUNTER 2018-11-09 13:01 | Emergency (ER) | payer MEDICAID ==
[~2018-11-09] VITALS: Ht 147.3 cm; Wt 70.5 kg
[2018-11-09 13:05] VITALS: BP 118/78
--- NOTE | 2018-11-09 13:39 | NUR ---
PATIENT LEFT LOBBY AT 1335 IS NOW LWBS.
== END 2018-11-09 13:35 | disposition left against medical advice (07) ==
LOC: MED 13:01
DX: R51 Headache (principal); R11.0 Nausea; Z53.21 Procedure and treatment not carried out due to patient leaving prior to being seen by health care provider

== ENCOUNTER 2018-11-19 09:40 | Emergency (ER) | payer MEDICAID ==
[~2018-11-19] VITALS: Ht 147.3 cm; Wt 70.3 kg
[2018-11-19 09:50] VITALS: BP 110/55
--- NOTE | 2018-11-19 09:57 | NUR ---
PATIENT AMB. TO BED #11
--- NOTE | 2018-11-19 09:59 | NUR ---
PER PATIENT HAVING ABD. CRAMPING, DIARRHEA, AND SORE THROAT X 2 DAYS. HX: DM, HTN. DENIES TAKING MEDS. PT STATES PAIN 10/10, GENERALIZED. VSS; PATIENT POSITIONED FOR COMFORT; HOB ELEVATED; BEDRAILS UP X1; BED DOWN. ER MD MADE AWARE OF PT STATUS.
[2018-11-19 12:00] VITALS: BP 110/55
--- NOTE | 2018-11-19 12:01 | NUR ---
Patient discharged with v/s stable. Written and verbal after care instructions given and explained. Patient alert, oriented and verbalized understanding of instructions. Ambulatory with steady gait. All questions addressed prior to discharge. ID band removed. Patient advised to follow up with PMD. Rx of PHENERGAN given. Patient educated on indication of medication including possible reaction and side effects. Opportunity to ask questions provided and answered.
== END 2018-11-19 12:01 | disposition home or self-care (01) ==
LOC: MED 09:40
DX: J06.9 Acute upper respiratory infection, unspecified (principal); R10.9 Unspecified abdominal pain; R19.7 Diarrhea, unspecified; Z88.0 Allergy status to penicillin; Z79.899 Other long term (current) drug therapy
CPT/HCPCS: 36415; 82948; 87804; 99283

== ENCOUNTER 2018-12-12 16:54 | Emergency (ER) | payer MEDICAID ==
[~2018-12-12] VITALS: Ht 142.2 cm; Wt 69.4 kg
[2018-12-12 17:16] VITALS: BP 112/56
--- NOTE | 2018-12-12 17:45 | NUR ---
pt decided not to be seen; amulated out of the er with steady gait
== END 2018-12-12 17:45 | disposition left against medical advice (07) ==
LOC: MED 16:54
DX: J02.9 Acute pharyngitis, unspecified (principal); R05 Cough; R10.9 Unspecified abdominal pain; Z53.21 Procedure and treatment not carried out due to patient leaving prior to being seen by health care provider

== ENCOUNTER 2019-02-11 09:48 | Emergency (ER) | payer MEDICAID ==
[~2019-02-11] VITALS: Ht 149.9 cm; Wt 69.9 kg
--- NOTE | 2019-02-11 09:53 | NUR ---
Patient ambulated to bed 9. RN evaluating patient at bedside.
[2019-02-11 09:55] VITALS: BP 111/72
--- NOTE | 2019-02-11 10:24 | NUR ---
Dr. Dupree evaluating patient at bedside.
[2019-02-11] MEDS ORDERED: KETOROLAC 60 MG/2 ML VIAL IM ONE (10:30)
--- NOTE | 2019-02-11 10:31 | NUR ---
WITH SORETHROAT. NON PROD. COUGH. DENIES CHEST PAIN. PER PATIENT, WITH NAUSEA,VOMITING AND DIARRHEA. LUNGS CLEAR TO AUSCULTATE. HX;DM,HTN. NOT TAKING MEDS. PER PATIENT SKIN IS PINK/WARM/DRY; AAOX4 WITH EVEN AND STEADY GAIT; LUNGS CLEAR BL; HR EVEN AND REGULAR; PT DENIES ANY FEVER, CP, SOB, OR COUGH AT THIS TIME; PATIENT STATES PAIN OF 10/10 AT THIS TIME; VSS; PATIENT POSITIONED FOR COMFORT; HOB ELEVATED; BEDRAILS UP X2; BED DOWN. ER MD MADE AWARE OF PT STATUS.
[2019-02-11 11:02] VITALS: BP 102/47
--- NOTE | 2019-02-11 11:04 | NUR ---
Patient discharged with v/s stable. Written and verbal after care instructions given and explained. Patient verbalized understanding. with . All questions addressed prior to discharge. Advised to follow up with PMD. Patient discharged with v/s stable. Written and verbal after care instructions given and explained. Patient alert, oriented and verbalized understanding of instructions. Ambulatory with steady gait. All questions addressed prior to discharge. ID band removed. Patient advised to follow up with PMD. Rx of MOTRIN AND PROMETHAZINE given. Patient educated on indication of medication including possible reaction and side effects. Opportunity to ask questions provided and answered.
== END 2019-02-11 11:04 | disposition home or self-care (01) ==
LOC: MED 09:48
DX: J06.9 Acute upper respiratory infection, unspecified (principal); E11.9 Type 2 diabetes mellitus without complications; I10 Essential (primary) hypertension; Z88.0 Allergy status to penicillin; Z79.899 Other long term (current) drug therapy
CPT/HCPCS: 82948; 96372; 99283; J1885

== ENCOUNTER 2019-03-01 08:49 | Emergency (ER) | payer MEDICAID ==
[~2019-03-01] VITALS: Ht 157.5 cm; Wt 73.9 kg
[2019-03-01 08:55] VITALS: BP 110/70
--- NOTE | 2019-03-01 08:55 | NUR ---
PT BIB [facility] TO ER BED 4
--- NOTE | 2019-03-01 09:00 | NUR ---
BIB [facility] W/ CO NAUSEA, VOMITING, DIARRHEA, SORE THROAT, HEADACHE AND DIZZINESS. PT VERBALIZED HAVING AN EPISODE OF INCONTINENCE. BLOOD SUGAR 104 ON ARRIVAL. HX: HTN, DM; UNABLE TO OBTAINED ADDITIONAL INFORMATION, PT IS A POOR HISTORIAN. PENDING ERMD EVALUATION.
--- NOTE | 2019-03-01 09:11 | NUR ---
DR TORRES AT BEDSIDE EVALUATIONG PT.
[2019-03-01] MEDS ORDERED: KETOROLAC 15 MG/ML VIAL IVP ONE (09:15)
[2019-03-01] MEDS ORDERED: NACL 0.9% 1,000 ML IV ONE (09:15)
[2019-03-01 09:47] LABS: BASOPHILS % (AUTO) 0.6 % (0.0-2.0); EOSINOPHILS # (AUTO) 0.1 K/uL (0-0.4); EOSINOPHILS % (AUTO) 1.2 % (0.0-4.0); HEMOGLOBIN 12.7 g/dL (12.0-16.0); MEAN CORPUSCULAR HEMOGLOBIN 31 pg (27-31); MEAN CORPUSCULAR HGB CONC 34 g/dL (33-37); MEAN CORPUSCULAR VOLUME 88.8 fL (80-94); MONOCYTES # (AUTO) 0.4 K/uL (0.8-1.0); MONOCYTES % (AUTO) 6.2 % (1.7-9.3); NEUTROPHILS # (AUTO) 3.5 K/uL (1.8-7.7); PLATELET COUNT (AUTO) 222 K/uL (140-450); RED BLOOD CELL COUNT(AUTO) 4.16 MIL/uL (4.20-5.40); RED CELL DISTRIBUTION WIDTH 12.9 % (11.6-13.7)
[2019-03-01 09:59] LABS: ANION GAP 12.4 (8-16); CARBON DIOXIDE 24.5 mmol/L (21-32); CREATININE 0.7 mg/dL (0.6-1.3); POTASSIUM 3.9 mmol/L (3.5-5.1)
[2019-03-01 10:05] LABS: ALBUMIN 3.6 g/dL (3.4-5.0); TOTAL BILIRUBIN 0.5 mg/dL (0.0-1.0)
--- NOTE | 2019-03-01 11:50 | NUR ---
Patient resting comfortably in bed. Vital Signs within normal limits. Respirations even and unlabored. Denies nausea and pain at this time.
--- NOTE | 2019-03-01 13:33 | NUR ---
per dr romero pt stable for d/c, no urine sample needed.
--- NOTE | 2019-03-01 13:33 | NUR ---
Patient discharged with v/s stable. Written and verbal after care instructions given and explained. Patient alert, oriented and verbalized understanding of instructions. Ambulatory with steady gait. All questions addressed prior to discharge. ID band removed. Patient advised to follow up with PMD. Rx of ibuprofen and zofrAN given. Patient educated on indication of medication including possible reaction and side effects. Opportunity to ask questions provided and answered. PT STATES SHE LIVES IN [place] "NOT FAR" AND WILL WALK HOME.
[2019-03-01 13:34] VITALS: BP 117/41
--- NOTE | 2019-03-02 13:22 | NUR ---
Late entry. Confirmend with RN that 1000 ml IV 0.9 NS bolus completed at 1050.
== END 2019-03-01 13:33 | disposition home or self-care (01) ==
LOC: MED 08:49
DX: R51 Headache (principal); R07.0 Pain in throat; E11.9 Type 2 diabetes mellitus without complications; I10 Essential (primary) hypertension; Z88.0 Allergy status to penicillin; Z79.899 Other long term (current) drug therapy
CPT/HCPCS: 36415; 80053; 82948; 85025; 96374; 99283; J1885

== ENCOUNTER 2019-03-10 10:52 | Emergency (ER) | payer MEDICAID ==
[~2019-03-10] VITALS: Ht 152.4 cm; Wt 68.0 kg
--- NOTE | 2019-03-10 10:52 | NUR ---
Patient BIBA BLS, transferred to bed 3. RN evaluating patient at bedside.
[2019-03-10 11:00] VITALS: BP 108/40
--- NOTE | 2019-03-10 11:09 | NUR ---
Dr. Barajas evaluating patient at bedside.
--- NOTE | 2019-03-10 11:10 | NUR ---
49 Y FEMALE BIBA C/O SEVERE THROBBING HEADACHE AND SORETHROAT X TODAY. +REDNESS IN THROAT. PAIN 10. EMS STATES PATIENT WAS AT [facility] AND ASKED THE FACILITY TO CALL 911. PT IS FRENCH SPEAKING. VSS AT THIS TIME. AA0X4. BED IS DOWN, LOCKED, BED RAIL X 1, ERMD TO SEE PT. DENIES PMH
--- NOTE | 2019-03-10 11:11 | NUR ---
PT STATES SHE LIVES IN [place], PER DR KOVACS
--- NOTE | 2019-03-10 11:14 | NUR ---
BS 110 IN FIELD
[2019-03-10] MEDS ORDERED: KETOROLAC 60 MG/2 ML VIAL IM ONE (11:15)
[2019-03-10] MEDS ORDERED: CLINDAMYCIN 600 MG/4 ML VIAL IM ONE (11:15)
[2019-03-10] MEDS ORDERED: DEXAMETHASONE 10 MG/ML VIAL IM ONE (11:15)
--- NOTE | 2019-03-10 11:20 | NUR ---
pt attempted to give urine sample. unable to give urine at this time.
--- NOTE | 2019-03-10 11:28 | NUR ---
pt taken to ct via wheelchair
--- NOTE | 2019-03-10 11:36 | NUR ---
Patient returned from CT scan. RN re-evaluating patient at bedside.
--- NOTE | 2019-03-10 11:57 | NUR ---
pt amb to restroom for urine sample. steady gait
[2019-03-10 12:13] LABS: BARBITURATE, URINE NEG. ng/ml (NEG <=200); BENZODIAZEPINE, URINE NEG. ng/mL (NEG <=200); CANNABINOID, URINE NEG. ng/mL (NEG <=50); COCAINE, URINE NEG. ng/mL (NEG <=300); OPIATE, URINE NEG. ng/mL (NEG <=2000); PHENCYCLIDINE SCREEN,URINE NEG. ng/mL (NEG <=25)
--- NOTE | 2019-03-10 12:38 | NUR ---
vss at this time. pt laying in bed comfortably.
[2019-03-10 13:25] VITALS: BP 124/72
--- NOTE | 2019-03-10 13:25 | NUR ---
Patient discharged with v/s stable. Written and verbal after care instructions given and explained. Patient alert, oriented and verbalized understanding of instructions. Ambulatory with steady gait. All questions addressed prior to discharge. ID band removed. Patient advised to follow up with PMD. Rx of fioricet given. Patient educated on indication of medication including possible reaction and side effects. Opportunity to ask questions provided and answered. pt provided with homeless resource packet and meal. pt states she will return to [place]
--- NOTE | 2019-03-10 13:25 | NUR ---
patient has signed homeless [facility] form.
== END 2019-03-10 13:25 | disposition home or self-care (01) ==
LOC: MED 10:52
DX: J02.9 Acute pharyngitis, unspecified (principal); R51 Headache; E11.9 Type 2 diabetes mellitus without complications; Z79.899 Other long term (current) drug therapy; Z88.0 Allergy status to penicillin
CPT/HCPCS: 70450; 80305; 96372; 99284; J1100; J1885; J3490

== ENCOUNTER 2019-03-26 14:51 | Emergency (ER) | payer MEDICAID ==
[~2019-03-26] VITALS: Ht 152.4 cm; Wt 79.4 kg
[2019-03-26 15:05] VITALS: BP 112/66
--- NOTE | 2019-03-26 15:05 | NUR ---
TO BED # 02 AMBULATORY
--- NOTE | 2019-03-26 15:32 | NUR ---
PT C/O NAUSEA, VOMITING, HEADACHE, SORETHROAT, AND COUGH WITH YELLOWISH SPUTUM FOR 2-3 DAYS. DENIES DIAEEHEA; SKIN IS PINK/WARM/DRY; AAOX4 WITH EVEN AND STEADY GAIT; LUNGS CLEAR BL; HR EVEN AND REGULAR; PT DENIES ANY FEVER, CP, SOB AT THIS TIME; PATIENT STATES PAIN OF 10/10 AT THIS TIME; VSS; PATIENT POSITIONED FOR COMFORT; HOB ELEVATED; BEDRAILS UP X1; BED DOWN. ER MD MADE AWARE OF PT STATUS.
--- NOTE | 2019-03-26 16:11 | NUR ---
Dr. Reynoso evaluating patient at bedside.
[2019-03-26] MEDS ORDERED: KETOROLAC 60 MG/2 ML VIAL IM ONE (16:15)
[2019-03-26] MEDS ORDERED: ONDANSETRON 4 MG ODT PO ONE (16:15)
--- NOTE | 2019-03-26 17:05 | NUR ---
Patient discharged with v/s stable. Written and verbal after care instructions given and explained. Patient alert, oriented and verbalized understanding of instructions. Ambulatory with steady gait. All questions addressed prior to discharge. ID band removed. Patient advised to follow up with PMD. Rx of ZOFRAN, PREDNISONE, MOTRIN given. Patient educated on indication of medication including possible reaction and side effects. Opportunity to ask questions provided and answered. PT STATES SHE WILL BE WALKING HOME AND SHE LIVES [place]BY.
[2019-03-26 17:06] VITALS: BP 123/64
== END 2019-03-26 17:05 | disposition home or self-care (01) ==
LOC: MED 14:51
DX: R51 Headache (principal); J02.9 Acute pharyngitis, unspecified; R11.0 Nausea; E11.9 Type 2 diabetes mellitus without complications; I10 Essential (primary) hypertension; F17.200 Nicotine dependence, unspecified, uncomplicated; Z88.0 Allergy status to penicillin; Z79.899 Other long term (current) drug therapy
CPT/HCPCS: 81002; 81025; 96372; 99283; J1885; Q0162

== ENCOUNTER 2019-04-06 09:26 | Emergency (ER) | payer MEDICAID ==
[~2019-04-06] VITALS: Ht 147.3 cm; Wt 73.9 kg
--- NOTE | 2019-04-06 09:36 | NUR ---
PT ANBULATED TO ER BED 09
[2019-04-06 09:47] VITALS: BP 113/51
--- NOTE | 2019-04-06 09:52 | NUR ---
49 Y FEMALE BIB SELF C/O HEADACHE FOR 3 DAYS. PAIN 07/13. DENIES N/V/D. DENIES SOB, BLURRY VISION, OR CP. PT DENIES TAKING ANY MEDS AT HOME. VSS AT THIS TIME. PT AA0X4. BED IS DOWN, LOCKED, BED RAIL X 1, ERMD TO SEE PT. PMH SCHIZO, HTN
--- NOTE | 2019-04-06 10:17 | NUR ---
DR KOVACS AT BEDSIDE
[2019-04-06] MEDS ORDERED: METOCLOPRAMIDE 10 MG/2 ML INJ VIAL IM ONE (10:20)
[2019-04-06] MEDS ORDERED: KETOROLAC 60 MG/2 ML VIAL IM ONE (10:20)
[2019-04-06] MEDS ORDERED: diphenhydrAMINE 50 MG/ML VIAL IM ONE (10:20)
--- NOTE | 2019-04-06 10:28 | NUR ---
PT BEING TAKEN TO CT VIA WHEELCHAIR
--- NOTE | 2019-04-06 10:36 | NUR ---
PT RETURNED FROM CT AA0X4
[2019-04-06 12:22] VITALS: BP 123/54
--- NOTE | 2019-04-06 12:22 | NUR ---
Patient discharged with v/s stable. Written and verbal after care instructions given and explained. Patient alert, oriented and verbalized understanding of instructions. Ambulatory with steady gait. All questions addressed prior to discharge. ID band removed. Rx of VISATRIL given. Patient educated on indication of medication including possible reaction and side effects. Opportunity to ask questions provided and answered.
== END 2019-04-06 12:22 | disposition home or self-care (01) ==
LOC: MED 09:26
DX: R51 Headache (principal); R42 Dizziness and giddiness; R11.2 Nausea with vomiting, unspecified; E11.9 Type 2 diabetes mellitus without complications; I10 Essential (primary) hypertension; F20.9 Schizophrenia, unspecified; Z88.0 Allergy status to penicillin; Z79.899 Other long term (current) drug therapy
CPT/HCPCS: 70450; 96372; 99284; J1200; J1885; J2765

== ENCOUNTER 2019-04-15 16:59 | Emergency (ER) | payer MEDICAID ==
[~2019-04-15] VITALS: Ht 167.6 cm; Wt 81.6 kg
[2019-04-15 17:00] VITALS: BP 109/60
--- NOTE | 2019-04-15 17:00 | NUR ---
PATIENT BIB BLS. VSS, SENT TO ER LOBBY.
--- NOTE | 2019-04-15 17:59 | NUR ---
CALLED PT FOR BED, NO RESPONSE AT THIS TIME WILL ATTEMPT LATER
--- NOTE | 2019-04-15 18:10 | NUR ---
18:05 2ND CALL THAO CHAUHAN N/A 3RD CALL THAO CHAUHAN N/A
== END 2019-04-15 17:59 | disposition left against medical advice (07) ==
LOC: MED 16:59
DX: R53.1 Weakness (principal); E11.9 Type 2 diabetes mellitus without complications; I10 Essential (primary) hypertension; Z53.21 Procedure and treatment not carried out due to patient leaving prior to being seen by health care provider

== ENCOUNTER 2019-05-03 11:09 | Emergency (ER) | payer MEDICAID ==
[~2019-05-03] VITALS: Ht 149.9 cm; Wt 76.0 kg
[2019-05-03 11:18] VITALS: BP 116/66
--- NOTE | 2019-05-03 11:47 | NUR ---
PT BIB SELF WITH C/O HEADACHE & N/V/D X 3 DAYS . PER PT, SHE HAS HA10/10 AT THIS TIME. HX OF SCHIZOPHRENIA AND HTN. PT [id number], ABLE TO FOLLOW COMMAND AND GIVE BREIF HISTORY. PER STATES TAKES MEDSAT HOME, CANNOT RECALL AT THIS TIME. PT DENIES ANY CP, ANY SOB AT THIS TIME. ALLERGIC TO PCN. PT PUT IN GOWN. ER TO SEE THE PT.
[2019-05-03] MEDS ORDERED: ONDANSETRON 4 MG/2 ML VIAL IM ONE (12:05)
[2019-05-03] MEDS ORDERED: KETOROLAC 30 MG/ML VIAL IM ONE (12:05)
[2019-05-03 12:28] VITALS: BP 116/66
--- NOTE | 2019-05-03 12:28 | NUR ---
Patient discharged with v/s stable. Written and verbal after care instructions given and explained. Patient alert, oriented and verbalized understanding of instructions. Ambulatory with steady gait. All questions addressed prior to discharge. ID band removed. Patient advised to follow up with PMD. Rx of ZOFRAN AND MOTRIN given. Patient educated on indication of medication including possible reaction and side effects. Opportunity to ask questions provided and answered.
== END 2019-05-03 12:28 | disposition home or self-care (01) ==
LOC: MED 11:09
DX: R51 Headache (principal); R11.2 Nausea with vomiting, unspecified; H53.149 Visual discomfort, unspecified; R50.9 Fever, unspecified; E11.9 Type 2 diabetes mellitus without complications; I10 Essential (primary) hypertension; Z79.899 Other long term (current) drug therapy; Z88.0 Allergy status to penicillin
CPT/HCPCS: 96372; 99283; J1885; J2405

== ENCOUNTER 2019-05-29 08:45 | Emergency (ER) | payer MEDICAID ==
[~2019-05-29] VITALS: Ht 157.5 cm; Wt 63.5 kg
[2019-05-29 09:09] VITALS: BP 137/78
--- NOTE | 2019-05-29 09:12 | NUR ---
PT AMBULATED TO LOBBY AT THIS TIME, VSS. Addendum: 05/29/19 at [address] PATENT, VOICE CLEAR, RR EVEN AND NON-LABORED, AND BREATH SOUNDS CLEAR THROUGHOUT.
--- NOTE | 2019-05-29 09:50 | NUR ---
BIB SELF. AAO X4. PT C/O LUQ ABD PAIN, SORE THROAT, COUGH, BL EAR PAIN, AND HEADACHE X2 DAYS. + N/V/D. PT TX WITH TYLENOL WITH RELIEF. PT STATES SHE VOMITED X2, DIARRHEA X 2 TODAY. PT DENIES FEVER, SOB. EQUAL CLEAR NILSON LUNGS UPON AUSCULTATION. ABDOMEN, SOFT, NON TENDER TO TOUCH. HOB UP. BED SIDE RAILS UP X1. ON LOW BED POSITION, LOCKED. ER TO EVALUATE PT.
--- NOTE | 2019-05-29 10:28 | NUR ---
Dr. Boo evaluating patient at bedside.
[2019-05-29 10:52] VITALS: BP 130/68
== END 2019-05-29 10:45 | disposition home or self-care (01) ==
LOC: MED 08:45
DX: R10.32 Left lower quadrant pain (principal); R50.9 Fever, unspecified; J02.9 Acute pharyngitis, unspecified; E11.9 Type 2 diabetes mellitus without complications; I10 Essential (primary) hypertension; Z88.0 Allergy status to penicillin; Z79.899 Other long term (current) drug therapy
CPT/HCPCS: 81002; 81025; 99283

== ENCOUNTER 2019-06-21 08:14 | Emergency (ER) | payer MEDICAID ==
[~2019-06-21] VITALS: Ht 147.3 cm; Wt 73.9 kg
[2019-06-21 08:21] VITALS: BP 126/86
[2019-06-21] MEDS ORDERED: ONDANSETRON 4 MG ODT PO ONE (08:40)
[2019-06-21 08:52] LABS: BASOPHILS % (AUTO) 0.5 % (0.0-2.0); EOSINOPHILS # (AUTO) 0.1 K/uL (0-0.4); EOSINOPHILS % (AUTO) 1.2 % (0.0-4.0); HEMATOCRIT 37.6 % (36-48); HEMOGLOBIN 12.8 g/dL (12.0-16.0); LYMPHOCYTES # (AUTO) 2.1 K/uL (2.5-16.5); LYMPHOCYTES % (AUTO) 35.8 % (20.5-51.1); MEAN CORPUSCULAR HEMOGLOBIN 31 pg (27-31); MEAN CORPUSCULAR HGB CONC 34 g/dL (33-37); MEAN CORPUSCULAR VOLUME 89.5 fL (80-94); MONOCYTES # (AUTO) 0.4 K/uL (0.8-1.0); MONOCYTES % (AUTO) 6.3 % (1.7-9.3); NEUTROPHILS # (AUTO) 3.2 K/uL (1.8-7.7); NEUTROPHILS % (AUTO) 56.2 % (42.2-75.2); PLATELET COUNT (AUTO) 224 K/uL (140-450); WHITE BLOOD COUNT (AUTO) 5.7 K/uL (4.8-10.8)
[2019-06-21 09:21] LABS: ALBUMIN 3.6 g/dL (3.4-5.0); ANION GAP 15.9 (8-16); CARBON DIOXIDE 23.6 mmol/L (21-32); CREATININE 0.6 mg/dL (0.6-1.3); POTASSIUM 3.5 mmol/L (3.5-5.1); TOTAL BILIRUBIN 0.4 mg/dL (0.0-1.0)
[2019-06-21 10:17] VITALS: BP 111/55
== END 2019-06-21 10:16 | disposition home or self-care (01) ==
LOC: MED 08:14
DX: R11.2 Nausea with vomiting, unspecified (principal); R19.7 Diarrhea, unspecified; F20.9 Schizophrenia, unspecified; I10 Essential (primary) hypertension; E11.9 Type 2 diabetes mellitus without complications; Z79.899 Other long term (current) drug therapy; Z88.0 Allergy status to penicillin
CPT/HCPCS: 36415; 80053; 82948; 83690; 85025; 99283; Q0162

== ENCOUNTER 2019-07-12 08:46 | Emergency (ER) | payer MEDICAID ==
[~2019-07-12] VITALS: Ht 142.2 cm; Wt 73.5 kg
[2019-07-12 08:52] VITALS: BP 100/63
--- NOTE | 2019-07-12 09:06 | NUR ---
BIBA WITH C/O NAUSEA, DIARRHEA & LOWER ABDOMINAL PAIN X3 DAYS, HALLUCINATIONS NOTED, PER [facility] PATIENT SPEAKING TO SOMEONE BYHERSELF, DENIES SUICIDAL IDEATION. LIVING WITH MOTHER. HX OF DM, HTN. BS 107MG/DL. ABDOMEN SOFT. PATIENT STATES PAIN OF 10/10 AT THIS TIME. PATIENT POSITIONED FOR COMFORT; HOB ELEVATED; BEDRAILS UP X1; BED DOWN. ER MD MADE AWARE OF PT STATUS.
[2019-07-12] MEDS ORDERED: ONDANSETRON 4 MG TAB PO ONE (09:40)
[2019-07-12] MEDS ORDERED: KETOROLAC 30 MG/ML VIAL IM ONE (09:40)
[2019-07-12] MEDS ORDERED: LACTULOSE 20 GM/30 ML UDC PO ONE (10:30)
[2019-07-12 11:39] LABS: COLOR,URINE YELLOW (YELLOW)
[2019-07-12 11:40] LABS: BILIRUBIN,URINE NEGATIVE (NEGATIVE); BLOOD, URINE TRACE (NEGATIVE); LEUKOCYTE ESTERASE ,URINE NEGATIVE (NEGATIVE); NITRITE, URINE NEGATIVE (NEGATIVE); UGLUCOSE NEGATIVE (NEGATIVE)
[2019-07-12 11:41] LABS: RBC,URINE 0-5 /HPF (0-5); WBC,URINE 0-5 /HPF (0-5); YEAST,URINE Few /HPF (None Seen)
[2019-07-12 11:42] LABS: APPEARANCE,URINE SLIGHTLY HAZY (CLEAR)
--- NOTE | 2019-07-12 12:07 | NUR ---
Patient discharged with v/s stable. Written and verbal after care instructions given and explained. Patient alert, oriented and verbalized understanding of instructions. Ambulatory with steady gait. All questions addressed prior to discharge. ID band removed. Patient advised to follow up with PMD. Rx of MIRALAX POWDER given. Patient educated on indication of medication including possible reaction and side effects. Opportunity to ask questions provided and answered.
[2019-07-12 12:08] VITALS: BP 100/60
== END 2019-07-12 12:07 | disposition home or self-care (01) ==
LOC: MED 08:46
DX: K59.00 Constipation, unspecified (principal); E11.9 Type 2 diabetes mellitus without complications; I10 Essential (primary) hypertension; F20.9 Schizophrenia, unspecified; Z88.0 Allergy status to penicillin; Z79.899 Other long term (current) drug therapy; Z59.0 Homelessness
CPT/HCPCS: 74018; 81001; 81025; 87086; 96372; 99284; J1885; Q0162

== ENCOUNTER 2019-08-13 07:07 | Emergency (ER) | payer MEDICAID ==
[~2019-08-13] VITALS: Ht 160 cm; Wt 73.9 kg
[2019-08-13 07:15] VITALS: BP 126/83
--- NOTE | 2019-08-13 07:15 | NUR ---
PT PLACED IN BED 8 BY EMS.
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
--- NOTE | 2019-08-13 07:52 | NUR ---
PT RESTING IN BED AT THIS TIME.
--- NOTE | 2019-08-13 08:32 | NUR ---
Patient being evaluated by Dr. Dupree at bedside.
--- NOTE | 2019-08-13 08:49 | NUR ---
Joyce gonzalez in ED - 08/13/19 at 0916 by PAVAN xray at bedside.
--- NOTE | 2019-08-13 08:53 | NUR ---
Joyce gonzalez in ED - 08/13/19 at 0854 by PAVAN INFLUENZA AND FLU SWAB DELIVERED TO LAB.
--- NOTE | 2019-08-13 08:54 | NUR ---
INFLUENZA AND STREP SWAB DELIVERED TO LAB.
--- NOTE | 2019-08-13 09:16 | NUR ---
X RAY AT BEDSIDE.
--- NOTE | 2019-08-13 10:31 | NUR ---
PATIENT ELOPED FROM FACILITY. DISCHARGE INSTRUCTIONS NOT GIVEN TO PATIENT. DR. GUTIERREZ NOTIFIED.
== END 2019-08-13 10:31 | disposition left against medical advice (07) ==
LOC: MED 07:07
DX: J06.9 Acute upper respiratory infection, unspecified (principal); I10 Essential (primary) hypertension; E11.9 Type 2 diabetes mellitus without complications; Z88.0 Allergy status to penicillin; Z79.899 Other long term (current) drug therapy
CPT/HCPCS: 71045; 81025; 87081; 87804; 99284

== ENCOUNTER 2019-09-03 08:03 | Emergency (ER) | payer MEDICAID ==
[~2019-09-03] VITALS: Ht 149.9 cm; Wt 76.2 kg
[2019-09-03 08:12] VITALS: BP 110/69
--- NOTE | 2019-09-03 08:14 | NUR ---
PT AMBULATED TO ER BED 05
--- NOTE | 2019-09-03 08:23 | NUR ---
HEADACHE, SORE THROAT AND STOMACH PAIN X 3 DAYS. DENIES N/V/D; SKIN IS PINK/WARM/DRY; AAOX4 WITH EVEN AND STEADY GAIT; LUNGS CLEAR BL; HR EVEN AND REGULAR; PT DENIES ANY FEVER, CP, SOB, OR COUGH AT THIS TIME; PATIENT STATES PAIN OF 2/10 AT THIS TIME; VSS; PATIENT POSITIONED FOR COMFORT; HOB ELEVATED; BEDRAILS UP X2; BED DOWN. ER MD MADE AWARE OF PT STATUS.
[2019-09-03] MEDS ORDERED: ONDANSETRON 4 MG ODT PO ONE (08:35)
[2019-09-03] MEDS ORDERED: HYDROcodone/APAP 5/325 MG 1 TAB TAB PO ONE (08:35)
[2019-09-03 09:09] LABS: BASOPHILS % (AUTO) 0.3 % (0.0-2.0); EOSINOPHILS % (AUTO) 0.8 % (0.0-4.0); HEMATOCRIT 39.5 % (36-48); HEMOGLOBIN 13.4 g/dL (12.0-16.0); LYMPHOCYTES # (AUTO) 1.8 K/uL (2.5-16.5); LYMPHOCYTES % (AUTO) 29.4 % (20.5-51.1); MEAN CORPUSCULAR HEMOGLOBIN 31 pg (27-31); MEAN CORPUSCULAR HGB CONC 34 g/dL (33-37); MEAN CORPUSCULAR VOLUME 90.6 fL (80-94); MONOCYTES # (AUTO) 0.3 K/uL (0.8-1.0); MONOCYTES % (AUTO) 5.3 % (1.7-9.3); NEUTROPHILS # (AUTO) 3.9 K/uL (1.8-7.7); NEUTROPHILS % (AUTO) 64.2 % (42.2-75.2); PLATELET COUNT (AUTO) 243 K/uL (140-450); RED BLOOD CELL COUNT(AUTO) 4.35 MIL/uL (4.20-5.40); RED CELL DISTRIBUTION WIDTH 12.7 % (11.6-13.7); WHITE BLOOD COUNT (AUTO) 6.1 K/uL (4.8-10.8)
[2019-09-03 09:30] LABS: ALBUMIN 3.7 g/dL (3.4-5.0); ANION GAP 11.9 (8-16); CARBON DIOXIDE 26.8 mmol/L (21-32); CREATININE 0.7 mg/dL (0.6-1.3); POTASSIUM 3.7 mmol/L (3.5-5.1); TOTAL BILIRUBIN 0.6 mg/dL (0.0-1.0)
--- NOTE | 2019-09-03 09:45 | NUR ---
PT STATED PAIN RELIEVED.
[2019-09-03 10:34] VITALS: BP 115/73
--- NOTE | 2019-09-03 10:34 | NUR ---
Patient discharged with v/s stable. Written and verbal after care instructions given and explained. Patient alert, oriented and verbalized understanding of instructions. Ambulatory with steady gait. All questions addressed prior to discharge. ID band removed. Patient advised to follow up with PMD. Rx of NORCO AND ZOFRAN given. Patient educated on indication of medication including possible reaction and side effects. Opportunity to ask questions provided and answered.
== END 2019-09-03 10:34 | disposition home or self-care (01) ==
LOC: MED 08:03
DX: B34.9 Viral infection, unspecified (principal); E11.9 Type 2 diabetes mellitus without complications; I10 Essential (primary) hypertension; Z79.899 Other long term (current) drug therapy; Z88.0 Allergy status to penicillin
CPT/HCPCS: 36415; 71045; 80053; 85025; 87804; 99284; Q0092; Q0162

== ENCOUNTER 2019-09-25 08:07 | Emergency (ER) | payer MEDICAID ==
[~2019-09-25] VITALS: Ht 147.3 cm; Wt 73.9 kg
--- NOTE | 2019-09-25 08:12 | NUR ---
PATIENT TO BED 9 BY EMS AT TIME.
[2019-09-25 08:16] VITALS: BP 125/71
[2019-09-25] MEDS ORDERED: ONDANSETRON 4 MG ODT PO ONE (08:35)
[2019-09-25] MEDS ORDERED: KETOROLAC 30 MG/ML VIAL IM ONE (08:35)
--- NOTE | 2019-09-25 08:35 | NUR ---
INFLUENZA SWAB COLLECTED
--- NOTE | 2019-09-25 08:43 | NUR ---
LAB AT BEDSIDE---COLLECTING SAMPLE
--- NOTE | 2019-09-25 08:52 | NUR ---
XRAY AT BEDSIDE
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
[2019-09-25 08:58] LABS: BASOPHILS % (AUTO) 0.6 % (0.0-2.0); EOSINOPHILS % (AUTO) 0.6 % (0.0-4.0); HEMATOCRIT 40.2 % (36-48); HEMOGLOBIN 13.4 g/dL (12.0-16.0); LYMPHOCYTES # (AUTO) 1.8 K/uL (2.5-16.5); LYMPHOCYTES % (AUTO) 32.5 % (20.5-51.1); MEAN CORPUSCULAR HEMOGLOBIN 30 pg (27-31); MEAN CORPUSCULAR HGB CONC 33 g/dL (33-37); MEAN CORPUSCULAR VOLUME 91.4 fL (80-94); MONOCYTES # (AUTO) 0.2 K/uL (0.8-1.0); MONOCYTES % (AUTO) 4.2 % (1.7-9.3); NEUTROPHILS # (AUTO) 3.5 K/uL (1.8-7.7); NEUTROPHILS % (AUTO) 62.1 % (42.2-75.2); PLATELET COUNT (AUTO) 242 K/uL (140-450); RED BLOOD CELL COUNT(AUTO) 4.39 MIL/uL (4.20-5.40); RED CELL DISTRIBUTION WIDTH 13.1 % (11.6-13.7); WHITE BLOOD COUNT (AUTO) 5.6 K/uL (4.8-10.8)
--- NOTE | 2019-09-25 09:04 | NUR ---
EKG COMPLETED AT BEDSIDE
[2019-09-25 09:06] LABS: ANION GAP 15.1 (8-16); CARBON DIOXIDE 24.8 mmol/L (21-32); CREATININE 0.7 mg/dL (0.6-1.3); POTASSIUM 3.9 mmol/L (3.5-5.1)
--- NOTE | 2019-09-25 10:14 | NUR ---
Patient discharged with v/s stable. Written and verbal after care instructions given and explained. Patient alert, oriented and verbalized understanding of instructions. Ambulatory with steady gait. All questions addressed prior to discharge. ID band removed. Patient advised to follow up with PMD. Rx of MOTRIN 600MG, TESSALON PERLES 200MG given. Patient educated on indication of medication including possible reaction and side effects. Opportunity to ask questions provided and answered.
[2019-09-25 10:15] VITALS: BP 110/41
== END 2019-09-25 10:14 | disposition home or self-care (01) ==
LOC: MED 08:07
DX: R51 Headache (principal); B34.9 Viral infection, unspecified; E11.9 Type 2 diabetes mellitus without complications; I10 Essential (primary) hypertension; Z88.0 Allergy status to penicillin
CPT/HCPCS: 36415; 71045; 80048; 84484; 85025; 87804; 93005; 96372; 99284; J1885; Q0092; Q0162

== ENCOUNTER 2019-09-30 22:50 | Emergency (ER) | payer MEDICAID ==
[~2019-09-30] VITALS: Ht 149.9 cm; Wt 73.9 kg
[2019-09-30 22:50] VITALS: BP 106/56
--- NOTE | 2019-09-30 22:50 | NUR ---
Pt ambulated from [facility] to bed 4.
--- NOTE | 2019-09-30 23:05 | NUR ---
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 PT CHANGED HER TIMELINE AND TOLD RN THAT SHE HAS HAD N/V X 2 HOURS. PT ALSO REPORTS DIFFUSE, NON SPECIFIC ABD PAIN. ABD IS ROUND, SOFT, NON TENDER. PT IS A POOR HISTORIAN. A/O X 2. PT IS KNOWN TO THIS ER AND HAS HX OF SCHIZOPHRENIA. PT DENIES TAKING ANY PSYCH MEDICATIONS AT THIS TIME. DENIES SI/HI. POOR HYGIENE NOTED. PT DENIES BEING HOMELESS. Hx: DM, HTN RX-- TYLENOL NEEDED
[2019-09-30] MEDS ORDERED: NACL 0.9% 500 ML IV ONE (23:28)
[2019-09-30] MEDS ORDERED: ONDANSETRON 4 MG/2 ML VIAL IVP ONE (23:30)
[2019-09-30] MEDS ORDERED: KETOROLAC 30 MG/ML VIAL IVP ONE (23:30)
[2019-09-30 23:53] LABS: BASOPHILS % (AUTO) 0.5 % (0.0-2.0); EOSINOPHILS # (AUTO) 0.1 K/uL (0-0.4); EOSINOPHILS % (AUTO) 0.7 % (0.0-4.0); HEMATOCRIT 38.2 % (36-48); HEMOGLOBIN 12.8 g/dL (12.0-16.0); LYMPHOCYTES % (AUTO) 33.7 % (20.5-51.1); MEAN CORPUSCULAR HEMOGLOBIN 31 pg (27-31); MEAN CORPUSCULAR HGB CONC 34 g/dL (33-37); MEAN CORPUSCULAR VOLUME 91.1 fL (80-94); MONOCYTES # (AUTO) 0.6 K/uL (0.8-1.0); MONOCYTES % (AUTO) 6.8 % (1.7-9.3); NEUTROPHILS # (AUTO) 5.3 K/uL (1.8-7.7); NEUTROPHILS % (AUTO) 58.3 % (42.2-75.2); PLATELET COUNT (AUTO) 266 K/uL (140-450); RED BLOOD CELL COUNT(AUTO) 4.19 MIL/uL (4.20-5.40)
--- NOTE | 2019-10-01 00:01 | NUR ---
DR. BRENDA WAN AT BEDSIDE.
[2019-10-01 00:09] LABS: CARBON DIOXIDE 27.6 mmol/L (21-32); CREATININE 0.7 mg/dL (0.6-1.3); POTASSIUM 3.6 mmol/L (3.5-5.1)
[2019-10-01 00:18] LABS: ALBUMIN 3.9 g/dL (3.4-5.0); TOTAL BILIRUBIN 0.3 mg/dL (0.0-1.0)
[2019-10-01 01:30] VITALS: BP 107/55
--- NOTE | 2019-10-01 01:30 | NUR ---
Patient discharged with v/s stable. Written and verbal after care instructions given and explained. Patient alert, oriented and verbalized understanding of instructions. Ambulatory with steady gait. All questions addressed prior to discharge. ID band removed. Patient advised to follow up with PMD. Rx of Tamiflu and Promethazine given. Patient educated on indication of medication including possible reaction and side effects. Opportunity to ask questions provided and answered.
== END 2019-10-01 01:30 | disposition home or self-care (01) ==
LOC: MED 22:50
DX: J11.1 Influenza due to unidentified influenza virus with other respiratory manifestations (principal); R11.2 Nausea with vomiting, unspecified; E11.9 Type 2 diabetes mellitus without complications; I10 Essential (primary) hypertension; F20.9 Schizophrenia, unspecified; Z88.0 Allergy status to penicillin
CPT/HCPCS: 36415; 80053; 83690; 85025; 96361; 96374; 96375; 99283; J1885; J2405

== ENCOUNTER 2019-10-21 08:47 | Emergency (ER) | payer MEDICAID ==
[~2019-10-21] VITALS: Ht 149.9 cm; Wt 73.5 kg
[2019-10-21 08:55] VITALS: BP 101/67
--- NOTE | 2019-10-21 08:58 | NUR ---
TO ED 07
--- NOTE | 2019-10-21 09:10 | NUR ---
49/F TO ED C/O GENERALIZED HEADACHE AND BILATERAL EAR PAIN. DENIES RECENT INJURY OR TRAUMA. NO DISCHARGE OR DRAINGE NOTED FROM EARS. PT APPEARS DISHEVELED AND SMELLS OF URINE. PT REPORTS THAT SHE IS NOT HOMELESS BUT DOES HAVE HX OF SCHIZOPHRENIA. IN BED FOR [facility].
[2019-10-21] MEDS ORDERED: KETOROLAC 60 MG/2 ML VIAL IM ONE (09:20)
[2019-10-21 09:50] VITALS: BP 101/67
--- NOTE | 2019-10-21 09:50 | NUR ---
REPORTS PAIN AT 2/10 POST TORADOL ADMIN. OKAY TO D/C PER DR GUTIERREZ.
== END 2019-10-21 09:50 | disposition home or self-care (01) ==
LOC: MED 08:47
DX: S16.1XXA Strain of muscle, fascia and tendon at neck level, initial encounter (principal); S46.912A Strain of unspecified muscle, fascia and tendon at shoulder and upper arm level, left arm, initial encounter; I10 Essential (primary) hypertension; E11.9 Type 2 diabetes mellitus without complications; Z88.0 Allergy status to penicillin; X58.XXXA Exposure to other specified factors, initial encounter; Y93.89 Activity, other specified; Y92.89 Other specified places as the place of occurrence of the external cause; Y99.8 Other external cause status
CPT/HCPCS: 96372; 99283; J1885

== ENCOUNTER 2019-10-30 07:59 | Emergency (ER) | payer MEDICAID ==
[~2019-10-30] VITALS: Ht 160 cm; Wt 79.4 kg
--- NOTE | 2019-10-30 07:59 | NUR ---
Patient BIBA BLS, transferred to bed 4. RN evaluating patient at bedside.
[2019-10-30 08:12] VITALS: BP 108/69
--- NOTE | 2019-10-30 08:12 | NUR ---
BIBA C/O SALES, N,V,D,ABD PAIN X TODAY. ABD IS SOFT, ROUND, NONTENDER. RATES SALES 07/13. DENIES ANY TRUAMA, HEAD INJURY, OR FALLS. VOMITTING (X 3), DIAHRREA ( X 1). A & O X4. VSS. NO DISTRESS NOTED. NKA. PMH: HTN,DM
--- NOTE | 2019-10-30 08:12 | NUR ---
PMH: BIPOLAR, SCHIZO
--- NOTE | 2019-10-30 08:18 | NUR ---
Dr. Fernandez is evaluating the patient at bedside.
[2019-10-30] MEDS ORDERED: ONDANSETRON 4 MG/2 ML VIAL IVP ONE (08:25)
[2019-10-30] MEDS ORDERED: NACL 0.9% 1,000 ML IV ONE (08:25)
[2019-10-30] MEDS ORDERED: ACETAMINOPHEN EXTRA STRENGTH 500 MG TAB PO ONE (08:25)
[2019-10-30 08:49] LABS: BASOPHILS # (AUTO) 0.1 K/uL (0.00-0.22); BASOPHILS % (AUTO) 0.9 % (0.0-2.0); EOSINOPHILS # (AUTO) 0.1 K/uL (0-0.4); EOSINOPHILS % (AUTO) 1.1 % (0.0-4.0); HEMATOCRIT 41.4 % (36-48); HEMOGLOBIN 13.9 g/dL (12.0-16.0); LYMPHOCYTES # (AUTO) 1.8 K/uL (2.5-16.5); LYMPHOCYTES % (AUTO) 30.9 % (20.5-51.1); MEAN CORPUSCULAR HEMOGLOBIN 31 pg (27-31); MEAN CORPUSCULAR HGB CONC 34 g/dL (33-37); MONOCYTES # (AUTO) 0.3 K/uL (0.8-1.0); MONOCYTES % (AUTO) 5.4 % (1.7-9.3); NEUTROPHILS # (AUTO) 3.6 K/uL (1.8-7.7); NEUTROPHILS % (AUTO) 61.7 % (42.2-75.2); PLATELET COUNT (AUTO) 252 K/uL (140-450); RED BLOOD CELL COUNT(AUTO) 4.49 MIL/uL (4.20-5.40); RED CELL DISTRIBUTION WIDTH 12.9 % (11.6-13.7); WHITE BLOOD COUNT (AUTO) 5.9 K/uL (4.8-10.8)
[2019-10-30 09:01] LABS: ANION GAP 14.1 (8-16); CARBON DIOXIDE 27.8 mmol/L (21-32); CREATININE 0.7 mg/dL (0.6-1.3); POTASSIUM 4.9 mmol/L (3.5-5.1)
[2019-10-30 09:07] LABS: ALBUMIN 3.9 g/dL (3.4-5.0); TOTAL BILIRUBIN 0.5 mg/dL (0.0-1.0)
--- NOTE | 2019-10-30 09:57 | NUR ---
Pt food request was brought. Repositioned to high-fowlers position.
[2019-10-30 10:01] LABS: APPEARANCE,URINE CLEAR (CLEAR); BILIRUBIN,URINE NEGATIVE (NEGATIVE); BLOOD, URINE TRACE-I (NEGATIVE); COLOR,URINE YELLOW (YELLOW); LEUKOCYTE ESTERASE ,URINE NEGATIVE (NEGATIVE); NITRITE, URINE NEGATIVE (NEGATIVE); PH,URINE 7.5 (5.0-9.0); UGLUCOSE NEGATIVE (NEGATIVE)
[2019-10-30 10:50] VITALS: BP 108/69
== END 2019-10-30 10:50 | disposition home or self-care (01) ==
LOC: MED 07:59
DX: R11.2 Nausea with vomiting, unspecified (principal); R19.7 Diarrhea, unspecified; R51 Headache; E11.9 Type 2 diabetes mellitus without complications; I10 Essential (primary) hypertension; Z88.0 Allergy status to penicillin
CPT/HCPCS: 36415; 80053; 81003; 82150; 83690; 85025; 96361; 96374; 99283; J2405; J7030

== ENCOUNTER 2019-11-09 09:26 | Emergency (ER) | payer MEDICAID ==
[~2019-11-09] VITALS: Ht 157.5 cm; Wt 72.6 kg
[2019-11-09 09:30] VITALS: BP 116/66
[2019-11-09] MEDS: KETOROLAC 30 MG/ML VIAL IM ONE (10:22)
[2019-11-09 10:38] LABS: BASOPHILS % (AUTO) 0.5 % (0.0-2.0); EOSINOPHILS # (AUTO) 0.1 K/uL (0-0.4); EOSINOPHILS % (AUTO) 0.9 % (0.0-4.0); HEMATOCRIT 38.6 % (36-48); HEMOGLOBIN 12.9 g/dL (12.0-16.0); LYMPHOCYTES # (AUTO) 2.2 K/uL (2.5-16.5); LYMPHOCYTES % (AUTO) 35.1 % (20.5-51.1); MEAN CORPUSCULAR HEMOGLOBIN 31 pg (27-31); MEAN CORPUSCULAR HGB CONC 33 g/dL (33-37); MEAN CORPUSCULAR VOLUME 91.7 fL (80-94); MONOCYTES # (AUTO) 0.4 K/uL (0.8-1.0); MONOCYTES % (AUTO) 6.2 % (1.7-9.3); NEUTROPHILS # (AUTO) 3.6 K/uL (1.8-7.7); NEUTROPHILS % (AUTO) 57.3 % (42.2-75.2); PLATELET COUNT (AUTO) 240 K/uL (140-450); RED BLOOD CELL COUNT(AUTO) 4.22 MIL/uL (4.20-5.40); RED CELL DISTRIBUTION WIDTH 12.9 % (11.6-13.7); WHITE BLOOD COUNT (AUTO) 6.4 K/uL (4.8-10.8)
[2019-11-09 10:45] LABS: BILIRUBIN,URINE NEGATIVE (NEGATIVE); BLOOD, URINE TRACE-I (NEGATIVE); COLOR,URINE AMBER (YELLOW); LEUKOCYTE ESTERASE ,URINE NEGATIVE (NEGATIVE); NITRITE, URINE NEGATIVE (NEGATIVE); UGLUCOSE NEGATIVE (NEGATIVE)
[2019-11-09 10:53] LABS: ALBUMIN 3.7 g/dL (3.4-5.0); ANION GAP 10.8 (8-16); CARBON DIOXIDE 27.2 mmol/L (21-32); CREATININE 0.7 mg/dL (0.6-1.3); TOTAL BILIRUBIN 0.3 mg/dL (0.0-1.0)
[2019-11-09 11:11] LABS: APPEARANCE,URINE HAZY (CLEAR); RBC,URINE 0-5 /HPF (0-5); WBC,URINE 0-5 /HPF (0-5)
[2019-11-09 12:30] VITALS: BP 110/74
== END 2019-11-09 12:30 | disposition home or self-care (01) ==
LOC: MED 09:26
DX: R10.30 Lower abdominal pain, unspecified (principal); R10.11 Right upper quadrant pain; M79.10 Myalgia, unspecified site; R11.0 Nausea; E11.9 Type 2 diabetes mellitus without complications; I10 Essential (primary) hypertension; Z88.0 Allergy status to penicillin
CPT/HCPCS: 36415; 76705; 80053; 81001; 82948; 85025; 96372; 99284; J1885; Q0092

== ENCOUNTER 2019-12-05 14:47 | Emergency (ER) | payer MEDICAID ==
[~2019-12-05] VITALS: Ht 147.3 cm; Wt 73.6 kg
[2019-12-05 14:54] VITALS: BP 107/62
[2019-12-05] MEDS ORDERED: NACL 0.9% 1,000 ML IV ONE (16:00)
[2019-12-05] MEDS ORDERED: KETOROLAC 30 MG/ML VIAL IVP ONE (16:00)
[2019-12-05 16:57] VITALS: BP 107/62
== END 2019-12-05 16:44 | disposition home or self-care (01) ==
LOC: MED 14:47
DX: R51 Headache (principal); R11.0 Nausea; R42 Dizziness and giddiness; E11.9 Type 2 diabetes mellitus without complications; I10 Essential (primary) hypertension; Z88.0 Allergy status to penicillin
CPT/HCPCS: 96361; 96374; 99283; J1885; J7030

== ENCOUNTER 2020-01-11 14:50 | Emergency (ER) | payer MEDICAID ==
[~2020-01-11] VITALS: Ht 154.9 cm; Wt 73.9 kg
[2020-01-11 14:57] VITALS: BP 128/71
[2020-01-11] MEDS ORDERED: ACETAMINOPHEN EXTRA STRENGTH 500 MG TAB PO ONE (15:20)
[2020-01-11] MEDS ORDERED: ONDANSETRON 4 MG ODT PO ONE (15:20)
[2020-01-11 16:17] VITALS: BP 117/73
== END 2020-01-11 16:16 | disposition home or self-care (01) ==
LOC: MED 14:50
DX: R11.2 Nausea with vomiting, unspecified (principal); R19.7 Diarrhea, unspecified; R51 Headache; R03.0 Elevated blood-pressure reading, without diagnosis of hypertension; E11.9 Type 2 diabetes mellitus without complications; I10 Essential (primary) hypertension; Z88.0 Allergy status to penicillin
CPT/HCPCS: 81002; 81025; 99283; Q0162

== ENCOUNTER 2020-01-25 10:59 | Emergency (ER) | payer MEDICAID ==
[~2020-01-25] VITALS: Ht 147.3 cm; Wt 73.9 kg
[2020-01-25 11:11] VITALS: BP 102/81
--- NOTE | 2020-01-25 11:20 | NUR ---
AMBULATED TO ER BED 2
[2020-01-25] MEDS ORDERED: KETOROLAC 30 MG/ML VIAL IVP ONE (11:30)
[2020-01-25] MEDS ORDERED: ONDANSETRON 4 MG/2 ML VIAL IVP ONE (11:30)
--- NOTE | 2020-01-25 11:30 | NUR ---
49/F presents to ED with complaints of N/V, headache, with cough x2 days. No active vomiting present. Patient complains of nausea. Denies any changes in vision. Denies recent travel. Denies being in contact with anyone positive for COVID 19. Pt has surgical mask in place. Upon interviewing patient I had appropriate PPE, N95, goggles, gown, mask. No cough present during assessment. Lungs clear bilaterally. Patient primarily icelandic speaking. No acute distress noted.
--- NOTE | 2020-01-25 11:45 | NUR ---
IV 20 gauge established to left AC, labs drawn and sent to lab. IV patent, flushed with 10cc NS. No signs of infiltration. Pt tolerated well.
[2020-01-25 11:51] LABS: BASOPHILS # (AUTO) 0.1 K/uL (0.00-0.22); BASOPHILS % (AUTO) 0.9 % (0.0-2.0); EOSINOPHILS # (AUTO) 0.1 K/uL (0-0.4); EOSINOPHILS % (AUTO) 0.7 % (0.0-4.0); HEMATOCRIT 38.9 % (36-48); HEMOGLOBIN 13.3 g/dL (12.0-16.0); LYMPHOCYTES # (AUTO) 2.9 K/uL (2.5-16.5); MEAN CORPUSCULAR HEMOGLOBIN 30 pg (27-31); MEAN CORPUSCULAR HGB CONC 34 g/dL (33-37); MEAN CORPUSCULAR VOLUME 88.8 fL (80-94); MONOCYTES # (AUTO) 0.4 K/uL (0.8-1.0); MONOCYTES % (AUTO) 5.9 % (1.7-9.3); NEUTROPHILS # (AUTO) 3.8 K/uL (1.8-7.7); NEUTROPHILS % (AUTO) 52.5 % (42.2-75.2); PLATELET COUNT (AUTO) 240 K/uL (140-450); RED BLOOD CELL COUNT(AUTO) 4.38 MIL/uL (4.20-5.40); RED CELL DISTRIBUTION WIDTH 13.1 % (11.6-13.7); WHITE BLOOD COUNT (AUTO) 7.2 K/uL (4.8-10.8)
[2020-01-25 11:51] LABS: APPEARANCE,URINE HAZY (CLEAR); BILIRUBIN,URINE 1+ (NEGATIVE); BLOOD, URINE TRACE-L (NEGATIVE); COLOR,URINE YELLOW (YELLOW); LEUKOCYTE ESTERASE ,URINE NEGATIVE (NEGATIVE); NITRITE, URINE NEGATIVE (NEGATIVE); UGLUCOSE NEGATIVE (NEGATIVE)
--- NOTE | 2020-01-25 11:56 | NUR ---
X-Ray at bedside.
[2020-01-25 12:07] LABS: ANION GAP 15.7 (8-16); CARBON DIOXIDE 24.4 mmol/L (21-32); CREATININE 0.9 mg/dL (0.6-1.3); POTASSIUM 4.1 mmol/L (3.5-5.1)
[2020-01-25 12:13] LABS: TOTAL BILIRUBIN 0.6 mg/dL (0.0-1.0)
[2020-01-25 12:30] LABS: RBC,URINE 11-20 (MOD) /HPF (0-5); WBC,URINE 0-5 /HPF (0-5)
--- NOTE | 2020-01-25 12:30 | NUR ---
IV removed, catheter intact and site benign. Applied folded 4x4 gauze and tape to stop bleeding.
[2020-01-25 12:34] VITALS: BP 110/82
--- NOTE | 2020-01-25 12:34 | NUR ---
Patient discharged with v/s stable. Written and verbal after care instructions given and explained in latvian and translated by myself. Patient alert, oriented and verbalized understanding of instructions. Ambulatory with steady gait. All questions addressed prior to discharge. ID band removed. Patient advised to follow up with PMD. Rx of Zofran 4mg, Motrin 400mg, Promethazine Hydrochloride/Dextromethorphan Hydrobromide 6.25mg-15mg/5ml given. Patient educated on indication of medication including possible reaction and side effects. Opportunity to ask questions provided and answered.
== END 2020-01-25 12:34 | disposition home or self-care (01) ==
LOC: EEVIPCON 10:59 → MED 10:59
DX: R11.0 Nausea (principal); R05 Cough; R51 Headache; R50.9 Fever, unspecified; E11.9 Type 2 diabetes mellitus without complications; I10 Essential (primary) hypertension; Z88.0 Allergy status to penicillin
CPT/HCPCS: 36415; 71045; 80053; 81001; 81025; 85025; 96374; 96375; 99284; J1885; J2405; Q0092

== ENCOUNTER 2020-02-11 11:14 | Emergency (ER) | payer MEDICAID, SELFPAY ==
[~2020-02-11] VITALS: Ht 152.4 cm; Wt 66.7 kg
[2020-02-11 11:15] VITALS: BP 135/87
[2020-02-11] MEDS ORDERED: IBUPROFEN 600 MG TAB PO ONE (11:20)
[2020-02-11] MEDS ORDERED: MAGNESIUM CITRATE 300 ML BTL PO ONE (11:20)
--- NOTE | 2020-02-11 11:20 | NUR ---
PT C/O INTERMITTENT HEADACHE "LONG TIME" PER PT. LEFT EAR PAIN X 2 DAYS W/O INJURY OR PURULENT DRAINAGE. RECTAL ITCHING/PAIN WITH DEFECATING. PATIENT STATES PAIN OF 5/10 AT THIS TIME; VSS; PATIENT POSITIONED FOR COMFORT ON THE SONJA IN THE TENT; ER MD MADE AWARE OF PT STATUS.
[2020-02-11 11:56] VITALS: BP 128/85
--- NOTE | 2020-02-11 11:56 | NUR ---
Patient discharged with v/s stable. Written and verbal after care instructions given and explained. Patient alert, oriented and verbalized understanding of instructions. Ambulatory with steady gait. All questions addressed prior to discharge. ID band removed. Patient advised to follow up with PMD. Rx of Ibuprofen and MiraLax given. Patient educated on indication of medication including possible reaction and side effects. Opportunity to ask questions provided and answered.
== END 2020-02-11 11:56 | disposition home or self-care (01) ==
LOC: MED 11:14
DX: H92.02 Otalgia, left ear (principal); R51 Headache; K59.00 Constipation, unspecified; E11.9 Type 2 diabetes mellitus without complications; I10 Essential (primary) hypertension; Z88.0 Allergy status to penicillin
CPT/HCPCS: 99283

== ENCOUNTER 2020-02-27 17:42 | Emergency (ER) | payer MEDICAID, SELFPAY ==
[~2020-02-27] VITALS: Ht 149.9 cm; Wt 68.0 kg
--- NOTE | 2020-02-27 17:42 | NUR ---
PT BIBA BLS TO ER BED 12
[2020-02-27 17:45] VITALS: BP 148/70
--- NOTE | 2020-02-27 17:45 | NUR ---
BIBA W C/O SUDDEN ONSET GENERALIZED ABD PAIN 01/11 AND N/V STARTING TODAY. PT WAS GIVEN 4MG ZOFRAN ODT IN THE FIELD. PT UNABLE TO SPECIFY WHAT AREA OF HER ABDOMEN HURTS. PT LAST BM TODAY. ABD SOFT/FLAT/NON TENDER. BED IN LOW POSITION, SIDE RAIL UP X1.
--- NOTE | 2020-02-27 18:00 | NUR ---
VERNON LOPEZ AT BEDSIDE
[2020-02-27 18:40] VITALS: BP 137/65
--- NOTE | 2020-02-27 18:40 | NUR ---
Patient discharged with v/s stable. Written and verbal after care instructions given and explained. Patient alert, oriented and verbalized understanding of instructions. Ambulatory with steady gait. All questions addressed prior to discharge. ID band removed. Patient advised to follow up with PMD. Rx of PYRIDIUM & MACROBID given. Patient educated on indication of medication including possible reaction and side effects. Opportunity to ask questions provided and answered.
== END 2020-02-27 18:40 | disposition home or self-care (01) ==
LOC: MED 17:42
DX: N39.0 Urinary tract infection, site not specified (principal); E11.9 Type 2 diabetes mellitus without complications; I10 Essential (primary) hypertension; Z88.0 Allergy status to penicillin
CPT/HCPCS: 81002; 99282

== ENCOUNTER 2020-03-31 08:22 | Emergency (ER) | payer MEDICAID, SELFPAY ==
[~2020-03-31] VITALS: Ht 146.1 cm; Wt 75.1 kg
[2020-03-31 08:28] VITALS: BP 113/70
--- NOTE | 2020-03-31 08:47 | NUR ---
PT AMBULATED TO ER BED 07
[2020-03-31] MEDS ORDERED: KETOROLAC 60 MG/2 ML VIAL IM ONE (08:55)
--- NOTE | 2020-03-31 08:57 | NUR ---
50 Y/O FEMALE C/O BODY ACHES, N/V/D FOR 3 DAYS. PT REPORTS SUBJECTIVE FEVER, IS AFEBRILE AT THIS TIME. RESP EVEN AND UNLABORED. LUNG SOUNDS CLEAR IN BILAT LOBES. ABD SOFT/ NON DISTENDED. DENIES ANY UTI SYMPTOMS. ABLE TO AMBULATE TO RESTROOM. VSS. AAOX4. DENIES ANY CONTACT WITH COVID POSITIVE PTS. DENIES COUGH, SOB. PMH: DIABETES, HTN ALLERGIES: PENICILLIN
[2020-03-31 09:21] VITALS: BP 113/70
--- NOTE | 2020-03-31 09:21 | NUR ---
Patient discharged with v/s stable. Written and verbal after care instructions given and explained. Patient alert, oriented and verbalized understanding of instructions. Ambulatory with steady gait. All questions addressed prior to discharge. ID band removed. Patient advised to follow up with PMD. Rx of ZOFRAN, MOTRIN, NORCO given. Patient educated on indication of medication including possible reaction and side effects. Opportunity to ask questions provided and answered.
== END 2020-03-31 09:21 | disposition home or self-care (01) ==
LOC: MED 08:22
DX: R51 Headache (principal); R11.2 Nausea with vomiting, unspecified; R50.9 Fever, unspecified; F17.200 Nicotine dependence, unspecified, uncomplicated; E11.9 Type 2 diabetes mellitus without complications; I10 Essential (primary) hypertension; Z88.0 Allergy status to penicillin
CPT/HCPCS: 81002; 96372; 99283; J1885

== ENCOUNTER 2020-04-19 08:28 | Emergency (ER) | payer MEDICAID, SELFPAY ==
[~2020-04-19] VITALS: Ht 152.4 cm; Wt 59.0 kg
[2020-04-19 08:29] VITALS: BP 125/78
--- NOTE | 2020-04-19 08:31 | NUR ---
PT INSTRUCTED TO WAIT FOR EVALUATION IN TENT
[2020-04-19] MEDS ORDERED: IBUPROFEN 600 MG TAB PO ONE (08:45)
[2020-04-19] MEDS ORDERED: ONDANSETRON 4 MG ODT PO ONE (08:45)
[2020-04-19 09:04] LABS: BASOPHILS % (AUTO) 0.4 % (0.0-2.0); EOSINOPHILS # (AUTO) 0.1 K/uL (0-0.4); HEMATOCRIT 38.1 % (36-48); HEMOGLOBIN 12.6 g/dL (12.0-16.0); LYMPHOCYTES # (AUTO) 2.5 K/uL (2.5-16.5); LYMPHOCYTES % (AUTO) 38.4 % (20.5-51.1); MEAN CORPUSCULAR HEMOGLOBIN 31 pg (27-31); MEAN CORPUSCULAR HGB CONC 33 g/dL (33-37); MEAN CORPUSCULAR VOLUME 92.4 fL (80-94); MONOCYTES # (AUTO) 0.4 K/uL (0.8-1.0); MONOCYTES % (AUTO) 5.4 % (1.7-9.3); NEUTROPHILS # (AUTO) 3.5 K/uL (1.8-7.7); NEUTROPHILS % (AUTO) 54.8 % (42.2-75.2); PLATELET COUNT (AUTO) 208 K/uL (140-450); RED BLOOD CELL COUNT(AUTO) 4.12 MIL/uL (4.20-5.40); RED CELL DISTRIBUTION WIDTH 13.1 % (11.6-13.7); WHITE BLOOD COUNT (AUTO) 6.4 K/uL (4.8-10.8)
--- NOTE | 2020-04-19 09:18 | NUR ---
50 Y/O FEMALE C/O BODY ACHES/FEVER/CHILLS/N/V/D X2 DAYS. PT STATES SHE ALSO HAS HAD A DRY COUGH FOR A COUPLE WEEKS. STATES BODY ACHES ARE 8/10. DENIES ANY SOB/CP. RESP EVEN AND UNLABORED. AFEBRILE AT THIS TIME. SKIN COOL/DRY. PMH: HTN NKA
[2020-04-19 09:37] LABS: ALBUMIN 3.6 g/dL (3.4-5.0); ANION GAP 13.3 (8-16); CARBON DIOXIDE 26.8 mmol/L (21-32); CREATININE 0.7 mg/dL (0.6-1.3); POTASSIUM 4.1 mmol/L (3.5-5.1); TOTAL BILIRUBIN 0.4 mg/dL (0.0-1.0)
[2020-04-19 09:56] VITALS: BP 125/78
--- NOTE | 2020-04-19 09:57 | NUR ---
Patient discharged with v/s stable. Written and verbal after care instructions given and explained. Patient alert, oriented and verbalized understanding of instructions. Ambulatory with steady gait. All questions addressed prior to discharge. ID band removed. Patient advised to follow up with PMD. Rx of ZOFRAN 4MG AND NAPROXEN 500MG given. Patient educated on indication of medication including possible reaction and side effects. Opportunity to ask questions provided and answered.
== END 2020-04-19 09:57 | disposition home or self-care (01) ==
LOC: MED 08:28
DX: R51 Headache (principal); R11.2 Nausea with vomiting, unspecified; R19.7 Diarrhea, unspecified; E11.9 Type 2 diabetes mellitus without complications; I10 Essential (primary) hypertension; R05 Cough; Z88.0 Allergy status to penicillin
CPT/HCPCS: 36415; 71045; 80053; 83690; 85025; 99284; Q0162

== ENCOUNTER 2020-05-15 18:21 | Emergency (ER) | payer MEDICAID, SELFPAY ==
[~2020-05-15] VITALS: Ht 157.5 cm; Wt 85.8 kg
--- NOTE | 2020-05-15 18:22 | NUR ---
JARROD RUBIO ALS TO ER BED 04
[2020-05-15 18:25] VITALS: BP 105/59
[2020-05-15] MEDS ORDERED: ONDANSETRON 4 MG ODT PO ONE (18:45)
[2020-05-15] MEDS ORDERED: KETOROLAC 15 MG/ML VIAL IM ONE (18:45)
--- NOTE | 2020-05-15 18:46 | NUR ---
C/O GENERALIZED ABD PAIN 5/10, N/V, HEADACHE X1 YEAR. PT DENIES DIARRHEA/CONSTIPATION. ABD SOFT/FLAT/NON TENDER. BED IN LOW POSITION, SIDE RAIL UP X1.
--- NOTE | 2020-05-15 18:55 | NUR ---
ERMD EVALUATING PT AT BEDSIDE
--- NOTE | 2020-05-15 19:15 | NUR ---
RECIEVED REPORT FROM ANDRE FIERRO. TRANSFER OF CARE AT THIS TIME.
--- NOTE | 2020-05-15 19:25 | NUR ---
ORAL COVID SWAB COLLECTED AND SENT TO LAB.
--- NOTE | 2020-05-15 19:32 | NUR ---
PT STATES SHE IS NO LONGER IN ABD PAIN. BED LOCKED AND IN LOWEST POSITION. ALL PT NEEDS MET AT THIS TIME.
[2020-05-15 19:44] VITALS: BP 105/59
--- NOTE | 2020-05-15 19:44 | NUR ---
Patient discharged with v/s stable. Written and verbal after care instructions given and explained. Patient alert, oriented and verbalized understanding of instructions. Ambulatory with steady gait. All questions addressed prior to discharge. ID band removed. Patient advised to follow up with PMD. Rx of ZOFRAN, MOTRIN given. Patient educated on indication of medication including possible reaction and side effects. Opportunity to ask questions provided and answered.
== END 2020-05-15 19:44 | disposition home or self-care (01) ==
LOC: MED 18:21
DX: R51 Headache (principal); R10.9 Unspecified abdominal pain; E11.9 Type 2 diabetes mellitus without complications; I10 Essential (primary) hypertension; Z20.828 Contact with and (suspected) exposure to other viral communicable diseases
CPT/HCPCS: 96372; 99283; J1885; Q0162; U0003

== ENCOUNTER 2020-05-30 08:42 | Emergency (ER) | payer MEDICAID ==
[~2020-05-30] VITALS: Ht 147.3 cm; Wt 73.5 kg
[2020-05-30 08:56] VITALS: BP 101/72
--- NOTE | 2020-05-30 09:07 | NUR ---
50 YO FEMALE C/O SORE THROAT FOR SEVERAL DAYS. PT ALSO STATES VOMITING 3X TODAY. NO BLOOD IN VOMIT. BLOOD SUGAR 113, BP 101/72 AT THIS TIME. MED HX: DM, HTN
--- NOTE | 2020-05-30 09:25 | NUR ---
ERMD AT BEDSIDE
[2020-05-30] MEDS ORDERED: ALUMINUM HYD/MAG/SIMETHICONE 30 ML UDC ONE (09:59)
[2020-05-30] MEDS ORDERED: LIDOCAINE VISCOUS 2% 20 ML UDC ONE (09:59)
[2020-05-30] MEDS ORDERED: DICYCLOMINE HCL LIQUID 10 MG/5 ML UDC ONE (09:59)
[2020-05-30] MEDS ORDERED: DICYCLOMINE HCL LIQUID 20 MG, ALUMINUM HYD/MAG/SIMETHICONE 30 ML, LIDOCAINE VISCOUS 2% ... PO ONE ×3 (10:00)
[2020-05-30 10:19] VITALS: BP 110/80
== END 2020-05-30 10:20 | disposition home or self-care (01) ==
LOC: MED 08:42
DX: R11.2 Nausea with vomiting, unspecified (principal); J02.9 Acute pharyngitis, unspecified; E11.9 Type 2 diabetes mellitus without complications; I10 Essential (primary) hypertension; Z88.0 Allergy status to penicillin
CPT/HCPCS: 81002; 99283

== ENCOUNTER 2020-06-21 09:10 | Emergency (ER) | payer MEDICAID ==
[~2020-06-21] VITALS: Ht 149.9 cm; Wt 75.3 kg
[2020-06-21 09:18] VITALS: BP 109/69
--- NOTE | 2020-06-21 09:30 | NUR ---
PT C/O HEADACHE, ABD PAIN 10/10 AND DIARRHEA FOR 2 DAYS. DENIES N/V/FEVER/COUGH/SOB. ABD SOFT/FLAT/NONTENDER. BOWEL SOUNDS PRESENT X4. DENIES DYSURIA/FREQUENCY. STATES "WHOLE STOMACH" HURTS, UNABLE TO LOCALIZE PAIN. BED IN LOW POSITION, SIDE RAIL UP X1.
[2020-06-21] MEDS ORDERED: ACETAMINOPHEN 325 MG TAB PO ONE (09:50)
[2020-06-21] MEDS ORDERED: ONDANSETRON 4 MG ODT PO ONE (09:50)
[2020-06-21] MEDS ORDERED: IBUPROFEN 400 MG TAB PO ONE (09:50)
--- NOTE | 2020-06-21 10:00 | NUR ---
DR. MEDLEY MADE AWARE
[2020-06-21 12:15] VITALS: BP 109/69
--- NOTE | 2020-06-21 12:17 | NUR ---
PT LEFT W/O D/C INSTRUCTIONS
== END 2020-06-21 12:17 | disposition home or self-care (01) ==
LOC: MED 09:10
DX: G44.209 Tension-type headache, unspecified, not intractable (principal); R11.2 Nausea with vomiting, unspecified; R19.7 Diarrhea, unspecified; E11.9 Type 2 diabetes mellitus without complications; I10 Essential (primary) hypertension; Z88.0 Allergy status to penicillin
CPT/HCPCS: 81002; 99284; Q0162

== ENCOUNTER 2020-07-14 12:16 | Emergency (ER) | payer MEDICAID ==
[~2020-07-14] VITALS: Ht 160 cm; Wt 83.9 kg
--- NOTE | 2020-07-14 12:16 | NUR ---
Patient BIBA BLS, transferred to bed 9. RN evaluating patient at bedside.
[2020-07-14 12:23] VITALS: BP 135/87
--- NOTE | 2020-07-14 12:41 | NUR ---
Dr. Kaiser is evaluating the patient at bedside.
[2020-07-14] MEDS ORDERED: LORazepam 1 MG TAB PO ONE (12:50)
[2020-07-14 13:44] VITALS: BP 135/87
== END 2020-07-14 13:44 | disposition home or self-care (01) ==
LOC: MED 12:16
DX: R51.9 Headache, unspecified (principal); M62.838 Other muscle spasm; I10 Essential (primary) hypertension; E11.9 Type 2 diabetes mellitus without complications; Z88.0 Allergy status to penicillin
CPT/HCPCS: 99283

== ENCOUNTER 2020-08-10 10:49 | Emergency (ER) | payer MEDICAID ==
[~2020-08-10] VITALS: Ht 160 cm; Wt 83.5 kg
--- NOTE | 2020-08-10 10:49 | NUR ---
PT BIBA AND PLACED IN BED 3.
[2020-08-10 10:53] VITALS: BP 130/57
--- NOTE | 2020-08-10 11:06 | NUR ---
50/F BIBA for generalized headache and body aches x 3 days. Also states nausea, chills, mild dizziness, mild sore throat, mild cough. Denies fever or covid positive contacts. Hx- DM, HTN
--- NOTE | 2020-08-10 11:16 | NUR ---
DR. TORRES EVALUATING PT AT BEDSIDE
[2020-08-10] MEDS ORDERED: diazePAM 5 MG TAB PO ONE (11:30)
[2020-08-10] MEDS ORDERED: KETOROLAC 30 MG/ML VIAL IM ONE (11:30)
--- NOTE | 2020-08-10 12:13 | NUR ---
PT SLEEPING IN GURNEY, EASILY AROUSABLE BY VOICE. STATES SHE IS FEELING "BETTER".
[2020-08-10 12:42] VITALS: BP 111/80
== END 2020-08-10 12:42 | disposition home or self-care (01) ==
LOC: MED 10:49
DX: R51.9 Headache, unspecified (principal); E11.9 Type 2 diabetes mellitus without complications; I10 Essential (primary) hypertension; Z88.0 Allergy status to penicillin
CPT/HCPCS: 96372; 99283; J1885

== ENCOUNTER 2020-09-10 09:51 | Emergency (ER) | payer MEDICAID, SELFPAY ==
[~2020-09-10] VITALS: Ht 144.8 cm; Wt 73.5 kg
[2020-09-10 09:56] VITALS: BP 101/69
[2020-09-10] MEDS ORDERED: KETOROLAC 30 MG/ML VIAL IM ONE (10:15)
--- NOTE | 2020-09-10 10:18 | NUR ---
50 y/o female from home c/o abd pain, cough, and sore throat x 3 days. Denies vomiting/diarrhea. + nausea. Unknown covid contact. RR even and unlabored. VSS
--- NOTE | 2020-09-10 10:22 | NUR ---
NOVEL SWAB COLLECTED AND SENT TO THE LAB.
[2020-09-10 10:44] VITALS: BP 101/69
--- NOTE | 2020-09-10 10:44 | NUR ---
Patient discharged with v/s stable. Written and verbal after care instructions given and explained. Patient alert, oriented and verbalized understanding of instructions. Ambulatory with steady gait. All questions addressed prior to discharge. ID band removed. Patient advised to follow up with PMD. Rx of Naprosyn 500mg and Robitussin DM 10mg-100mg/5ml given. Patient educated on indication of medication including possible reaction and side effects. Opportunity to ask questions provided and answered.
== END 2020-09-10 10:44 | disposition home or self-care (01) ==
LOC: MED 09:51
DX: J06.9 Acute upper respiratory infection, unspecified (principal); Z20.828 Contact with and (suspected) exposure to other viral communicable diseases; M79.10 Myalgia, unspecified site
CPT/HCPCS: 71045; 96372; 99284; J1885; U0003

== ENCOUNTER 2020-10-02 09:30 | Emergency (ER) | payer MEDICAID, SELFPAY ==
[~2020-10-02] VITALS: Ht 152.4 cm; Wt 54.4 kg
[2020-10-02 09:40] VITALS: BP 142/78
--- NOTE | 2020-10-02 09:58 | NUR ---
50 Y/O FEMALE C/O SORE THROAT/ NAUSEA/ VOMITING AND COUGH FOR PAST THREE DAYS. NO ACUTE DISTRESS NOTED AT THIS TIME. LUNG SOUNDS CLEAR BILATERALLY. NO CHEST PAIN REPORTED AT THIS TIME. VSS.
[2020-10-02 11:54] VITALS: BP 142/78
== END 2020-10-02 11:54 | disposition home or self-care (01) ==
LOC: MED 09:30
DX: J02.9 Acute pharyngitis, unspecified (principal); Z20.828 Contact with and (suspected) exposure to other viral communicable diseases; R11.0 Nausea; E11.9 Type 2 diabetes mellitus without complications; I10 Essential (primary) hypertension; Z88.0 Allergy status to penicillin
CPT/HCPCS: 99283; U0003

== ENCOUNTER 2020-11-01 13:35 | Emergency (ER) | payer MEDICAID, SELFPAY ==
[~2020-11-01] VITALS: Ht 144.8 cm; Wt 77.1 kg
--- NOTE | 2020-11-01 13:39 | NUR ---
PT AMBULATED TO BED 11.
[2020-11-01 13:42] VITALS: BP 149/63
--- NOTE | 2020-11-01 13:45 | NUR ---
50/F presents to ED with c/o n/v, headache, sore throat x2 days. No active vomiting noted. Pt c/o 10/10 pain to head. Denies numbness, tingling. Hx: DM, HTN
[2020-11-01] MEDS ORDERED: KETOROLAC 60 MG/2 ML VIAL IM ONE (14:05)
[2020-11-01] MEDS ORDERED: ONDANSETRON 4 MG ODT PO ONE (14:05)
[2020-11-01 14:40] VITALS: BP 145/60
--- NOTE | 2020-11-01 14:41 | NUR ---
cleared for d/c by Dr Marcus; d/c with instructions on Nausea & Vomiting; pt fully understands all materials given re c/c; has no further questions; aox4; VSS; ambulatory with steady gait; no signs of acute distress
== END 2020-11-01 14:41 | disposition home or self-care (01) ==
LOC: MED 13:35
DX: R11.2 Nausea with vomiting, unspecified (principal); R51.9 Headache, unspecified; R68.83 Chills (without fever); E11.9 Type 2 diabetes mellitus without complications; I10 Essential (primary) hypertension; Z88.0 Allergy status to penicillin
CPT/HCPCS: 81002; 81025; 96372; 99283

== ENCOUNTER 2020-12-05 08:07 | Emergency (ER) | payer MEDICAID, SELFPAY ==
[~2020-12-05] VITALS: Ht 149.9 cm; Wt 76.2 kg
[2020-12-05 08:14] VITALS: BP 70/36
--- NOTE | 2020-12-05 08:22 | NUR ---
PT AMBULATED TO BED 4 WITH STEADY GAIT
--- NOTE | 2020-12-05 08:25 | NUR ---
50 YO FEMALE BIBS C/O BILATERAL EAR PAIN AND ABD PAIN X 3 DAYS. PT RATES PAIN 10/10 THAT IS NONRADIATING. PT DENIES TAKING ANYTHING FOR PAIN. PT STATES SHE HAS BEEN NAUSEOUS AND VOMITING X3 DAYS AGO. ON ASSESSMENT, EARS ARE NOT RED WITH EXCESS CERUMEN. ABD IS ROUND, SOFT AND TENDER ON PALPATION WITH ACTIVE BOWEL SOUNDS X4 QUADRANTS. PT DENIES DIARRHEA. PT IS UNKEPT WITH DIRTY CLOTHES. PT A/O X4 WITH EVEN AND UNLABORED RESPIRATIONS. PT LAYING IN BED WITH BED IN LOWEST POSITION, BRAKES LOCKED, X1 SIDERAIL UP. PMH: HTN, DM, PSYCH HX MEDS: SEROQUEL ALLERGY: PENICILLIN
--- NOTE | 2020-12-05 08:30 | NUR ---
DR TORRES AT BEDSIDE EVALUATING PT
[2020-12-05] MEDS ORDERED: ONDANSETRON 4 MG ODT PO ONE (08:40)
[2020-12-05] MEDS ORDERED: KETOROLAC 30 MG/ML VIAL IM ONE (08:40)
[2020-12-05 09:04] VITALS: BP 70/36
== END 2020-12-05 09:04 | disposition home or self-care (01) ==
LOC: MED 08:07
DX: R51.9 Headache, unspecified (principal); H92.03 Otalgia, bilateral; R11.0 Nausea; E11.9 Type 2 diabetes mellitus without complications; I10 Essential (primary) hypertension; Z88.0 Allergy status to penicillin
CPT/HCPCS: 96372; 99283; J1885; Q0162

== ENCOUNTER 2020-12-29 10:03 | Emergency (ER) | payer MEDICAID, OTHER ==
[~2020-12-29] VITALS: Ht 157.5 cm; Wt 72.6 kg
--- NOTE | 2020-12-29 10:03 | NUR ---
Patient BIBA BLS, transferred to bed 6. RN evaluating the patient at bedside.
[2020-12-29 10:05] VITALS: BP 122/76
--- NOTE | 2020-12-29 10:05 | NUR ---
50 Y/O FEMAL BIBA FROM HOME FOR HEADACHE X LAST NIGHT. PT STATES CONTINUOUS PAIN 10/10, DULL WITH PRESENCE OF NAUSEA/VOMITING. PATIENT DENIES BLURRY VISION, PERRLA. AO4, BREATHING EVEN AND UNLABORED, SKIN WARM AND DRY. BED INLOWEST POSITION, LOCKED, X1 SIDERAIL UP. PT ON MONITOR. PMHX - DM, HTN ALLERGY - PENICILLIN
[2020-12-29] MEDS ORDERED: NACL 0.9% 1,000 ML IV ONE (10:30)
[2020-12-29 12:04] VITALS: BP 96/43
--- NOTE | 2020-12-29 12:06 | NUR ---
Patient discharged with v/s stable. Written and verbal after care instructions ABOUT TENSION HEADACHE given and explained. Patient verbalized understanding. Ambulatory with to car. All questions addressed prior to discharge. Advised to follow up with PMD.
== END 2020-12-29 12:06 | disposition home or self-care (01) ==
LOC: MED 10:03
DX: R51.9 Headache, unspecified (principal); R11.0 Nausea; E11.9 Type 2 diabetes mellitus without complications; I10 Essential (primary) hypertension; Z88.0 Allergy status to penicillin
CPT/HCPCS: 99283; J7030

== ENCOUNTER 2021-01-29 13:22 | Emergency (ER) | payer OTHER ==
[~2021-01-29] VITALS: Ht 147.3 cm; Wt 75.7 kg
--- NOTE | 2021-01-29 13:40 | NUR ---
time study technologist at pt bedside, gave blood at this time to Moris.
--- NOTE | 2021-01-29 13:42 | NUR ---
PT TAKEN TO ER BED 7 FOR TRIAGE BEDSIDE.
[2021-01-29 13:43] VITALS: BP 117/79
--- NOTE | 2021-01-29 13:44 | NUR ---
50 Y/O FEMALE C/O ABDOMINAL PAIN 07/13 DESCRIBES SHARP CONSTANT NON-RADIATING, +N/V X3, GENERALIZED WEAKNESS, FATIGUE X1DAY. ABDOMEN IS SOFT, TENDER, BOWEL SOUNDS X4 ACTIVE. LAST BM 01/29/21. PT DENIES FEVER/CHILLS. PMH: HTN, DM ALLERGIES: PCN
--- NOTE | 2021-01-29 14:01 | NUR ---
Dr. Velez at pt bedside for evaluation.
[2021-01-29] MEDS ORDERED: KETOROLAC 30 MG/ML VIAL IVP ONE (14:05)
[2021-01-29] MEDS ORDERED: ONDANSETRON 4 MG/2 ML VIAL IVP ONE (14:05)
[2021-01-29 14:17] LABS: BASOPHILS % (AUTO) 0.1 % (0.0-2.0); EOSINOPHILS % (AUTO) 0.1 % (0.0-4.0); HEMATOCRIT 40.6 % (36-48); HEMOGLOBIN 13.8 g/dL (12.0-16.0); LYMPHOCYTES # (AUTO) 1.3 K/uL (2.5-16.5); LYMPHOCYTES % (AUTO) 11.7 % (20.5-51.1); MEAN CORPUSCULAR HEMOGLOBIN 31 pg (27-31); MEAN CORPUSCULAR HGB CONC 34 g/dL (33-37); MEAN CORPUSCULAR VOLUME 90.8 fL (80-94); MONOCYTES # (AUTO) 0.5 K/uL (0.8-1.0); MONOCYTES % (AUTO) 4.4 % (1.7-9.3); NEUTROPHILS # (AUTO) 9.4 K/uL (1.8-7.7); NEUTROPHILS % (AUTO) 83.7 % (42.2-75.2); PLATELET COUNT (AUTO) 220 K/uL (140-450); RED BLOOD CELL COUNT(AUTO) 4.47 MIL/uL (4.20-5.40); RED CELL DISTRIBUTION WIDTH 13.1 % (11.6-13.7); WHITE BLOOD COUNT (AUTO) 11.2 K/uL (4.8-10.8)
[2021-01-29] MEDS ORDERED: NACL 0.9% 1,000 ML IV ONE (14:20)
--- NOTE | 2021-01-29 14:35 | NUR ---
Pt taken to CT via rcarlin.
[2021-01-29 14:36] LABS: ALBUMIN 3.9 g/dL (3.4-5.0); ANION GAP 13.5 (8-16); CARBON DIOXIDE 25.8 mmol/L (21-32); CREATININE 0.8 mg/dL (0.6-1.3); POTASSIUM 3.3 mmol/L (3.5-5.1); TOTAL BILIRUBIN 0.8 mg/dL (0.0-1.0)
--- NOTE | 2021-01-29 14:44 | NUR ---
Pt back to ER bed 7 via speedy.
[2021-01-29] MEDS ORDERED: POTASSIUM CHLORIDE 10 MEQ TABER PO ONE (15:05)
--- NOTE | 2021-01-29 15:06 | NUR ---
Dr. Velez with pt for further evaluation.
[2021-01-29] MEDS ORDERED: BEN10 PO (15:09)
[2021-01-29 16:08] VITALS: BP 117/79
--- NOTE | 2021-01-29 16:08 | NUR ---
Patient discharged with v/s stable. Written and verbal after care instructions given and explained. Patient alert, oriented and verbalized understanding of instructions. Ambulatory with steady gait. All questions addressed prior to discharge. ID band removed. Patient advised to follow up with PMD. Rx of BENTYL 10MG PO TID PRN DIARRHEA given. Patient educated on indication of medication including possible reaction and side effects. Opportunity to ask questions provided and answered.
== END 2021-01-29 16:08 | disposition home or self-care (01) ==
LOC: MED 13:22
DX: R19.7 Diarrhea, unspecified (principal); R10.84 Generalized abdominal pain; E11.9 Type 2 diabetes mellitus without complications; I10 Essential (primary) hypertension; Z88.8 Allergy status to other drugs, medicaments and biological substances; Z88.0 Allergy status to penicillin; Z79.899 Other long term (current) drug therapy
CPT/HCPCS: 36415; 74176; 80053; 83690; 84703; 85025; 96361; 96374; 96375; 99284; J1885; J2405; J7030

== ENCOUNTER 2021-02-09 10:12 | Emergency (ER) | payer OTHER ==
[~2021-02-09] VITALS: Ht 149.9 cm; Wt 75.7 kg
[~2021-02-09 10:12] MED LIST changes: +BEN10 PO; -QUET200T PO
[2021-02-09 10:18] VITALS: BP 122/74
--- NOTE | 2021-02-09 10:18 | NUR ---
PT AMBULATED TO BED 6.
--- NOTE | 2021-02-09 10:30 | NUR ---
50 y/o F brought in by self with c/c right sided abdominal pain. Patient presents A&Ox4, Romanian speaking and states abdominal pain and associated nausea, vomiting, headache, and bilateral ear pain x 2-3 days. Patient states vomiting x 1 episode today, denies any blood. States headache for 2-3 days. Denies taking any medications prior to arrival. Patient states no recent vaccinations or exposure to sick people. Pt placed into gown, desk monitor. Bed locked in lowest position, side rails x 1. PMH: Denies Allergies: Penicillin Meds: Denies Sx: Denies
[2021-02-09] MEDS ORDERED: KETOROLAC 30 MG/ML VIAL IM ONE (10:35)
--- NOTE | 2021-02-09 10:45 | NUR ---
Patient provided with water cup and encouraged for a urine sample at this time.
--- NOTE | 2021-02-09 11:22 | NUR ---
Patient ambulated to restroom for urine sample attempt.
--- NOTE | 2021-02-09 11:22 | NUR ---
Patient reports positive pain relief; rates pain 5/10.
[2021-02-09 12:00] VITALS: BP 122/74
--- NOTE | 2021-02-09 12:00 | NUR ---
Patient discharged with v/s stable. Written and verbal after care instructions given and explained. Patient verbalized understanding. Ambulatory with steady gait. All questions addressed prior to discharge. Advised to follow up with PMD. Patient provided with sandwich, jello, and juice prior to discharge.
== END 2021-02-09 12:00 | disposition home or self-care (01) ==
LOC: MED 10:12
DX: M79.10 Myalgia, unspecified site (principal); R10.9 Unspecified abdominal pain; R11.0 Nausea; R51.9 Headache, unspecified; H92.09 Otalgia, unspecified ear; E11.9 Type 2 diabetes mellitus without complications; I10 Essential (primary) hypertension; Z88.0 Allergy status to penicillin; Z79.899 Other long term (current) drug therapy
CPT/HCPCS: 81002; 96372; 99283; J1885

== ENCOUNTER 2021-03-10 07:32 | Emergency (ER) | payer OTHER ==
[~2021-03-10] VITALS: Ht 147.3 cm; Wt 73.5 kg
--- NOTE | 2021-03-10 07:33 | NUR ---
BIBA taken to bed 11
[2021-03-10 07:35] VITALS: BP 125/56
--- NOTE | 2021-03-10 07:35 | NUR ---
Dr. Velez is evaluating patient at bedside.
--- NOTE | 2021-03-10 07:35 | NUR ---
51 y/o F BIBA from in front of [employer] [facility] c/o headache x 2 days. Patient A&Ox4, ambulatory, states non-traumatic headache x 2 days. Patient states 10/10, throbbing/constant, non-radiating pain. Patient also reports abdominal pain, nausea, vomiting x 1 episode -hematuria since yesterday. Patient states abdominal pain 8/10 at this time. Denies taking any medication prior to arrival; denies blurry vision, dizziness, SOB, chest pain, back pain. EMS blood sugar: 148. Pt placed into company tanker truck driver; VSS. Lung sounds CTA. Bed locked in lowest position, side rails x 2 for pt safety, call light in reach. PMH: HTN, DM Meds: Unable to obtain, pt does not remember Allergies: Penicillins
[2021-03-10] MEDS ORDERED: LORazepam 0.5 MG TAB PO ONE (07:40)
[2021-03-10] MEDS ORDERED: KETOROLAC 30 MG/ML VIAL IM ONE (07:40)
[2021-03-10] MEDS ORDERED: KETOROLAC 30 MG/ML VIAL ONE (07:43)
[2021-03-10] MEDS ORDERED: LORazepam 0.5 MG TAB ONE (07:44)
--- NOTE | 2021-03-10 07:59 | NUR ---
Patient states she feels a lot better; rates pain 0/10 headache.
[2021-03-10 08:18] VITALS: BP 123/47
== END 2021-03-10 08:18 | disposition home or self-care (01) ==
LOC: MED 07:32
DX: R51.9 Headache, unspecified (principal); E11.9 Type 2 diabetes mellitus without complications; I10 Essential (primary) hypertension; Z88.0 Allergy status to penicillin; Z79.899 Other long term (current) drug therapy
CPT/HCPCS: 96372; 99283; J1885

== ENCOUNTER 2021-03-23 14:36 | Emergency (ER) | payer OTHER ==
[~2021-03-23] VITALS: Ht 160 cm; Wt 68.0 kg
[2021-03-23 14:45] VITALS: BP 111/77
[2021-03-23] MEDS ORDERED: NACL 0.9% 1,000 ML IV ONE ×2 (14:55→16:35)
[2021-03-23] MEDS ORDERED: ACETAMINOPHEN EXTRA STRENGTH 500 MG TAB PO ONE (15:10)
[2021-03-23 15:19] LABS: BASOPHILS # (AUTO) 0.1 K/uL (0.00-0.22); BASOPHILS % (AUTO) 0.7 % (0.0-2.0); EOSINOPHILS # (AUTO) 0.1 K/uL (0-0.4); HEMATOCRIT 35.6 % (36-48); HEMOGLOBIN 12.1 g/dL (12.0-16.0); LYMPHOCYTES # (AUTO) 2.4 K/uL (2.5-16.5); LYMPHOCYTES % (AUTO) 31.6 % (20.5-51.1); MEAN CORPUSCULAR HEMOGLOBIN 31 pg (27-31); MEAN CORPUSCULAR HGB CONC 34 g/dL (33-37); MEAN CORPUSCULAR VOLUME 91.2 fL (80-94); MONOCYTES # (AUTO) 0.4 K/uL (0.8-1.0); MONOCYTES % (AUTO) 5.1 % (1.7-9.3); NEUTROPHILS # (AUTO) 4.7 K/uL (1.8-7.7); NEUTROPHILS % (AUTO) 61.6 % (42.2-75.2); PLATELET COUNT (AUTO) 212 K/uL (140-450); RED CELL DISTRIBUTION WIDTH 12.7 % (11.6-13.7); WHITE BLOOD COUNT (AUTO) 7.7 K/uL (4.8-10.8)
[2021-03-23 15:39] LABS: ALBUMIN 3.4 g/dL (3.4-5.0); ANION GAP 20.3 (8-16); CARBON DIOXIDE 22.9 mmol/L (21-32); CREATININE 0.9 mg/dL (0.6-1.3); MAGNESIUM 1.5 mg/dL (1.8-2.4); PHOSPHORUS 3.3 mg/dL (2.5-4.9); POTASSIUM 3.2 mmol/L (3.5-5.1); TOTAL BILIRUBIN 0.3 mg/dL (0.0-1.0)
--- NOTE | 2021-03-23 15:48 | NUR ---
51 Y/O F BIBA FROM [facility], EMS STATES HEAT EXPOSURE MAY HAVE CAUSED GENERALIZED WEAKNESS, BS IN FIELD: 196. 22G L HAND ESTABLISHED BY EMS WITH 300ML NS 0.9%. INITIAL BP AT SCENE WAS 81/60, AFTER BOLUS . PT STATES SHE HAS A PINCHING SENSATION IN HER RIBS. DENIES N/V/D; SKIN IS PINK/WARM/DRY; AAOX3 WITH EVEN AND STEADY GAIT; LUNGS CLEAR BL; HR EVEN AND REGULAR; PT DENIES ANY FEVER, CP, SOB, OR COUGH AT THIS TIME; PATIENT STATES PAIN OF 0/10 AT THIS TIME; VSS; PATIENT POSITIONED FOR COMFORT; HOB ELEVATED; BEDRAILS UP X2; BED DOWN. ER MD MADE AWARE OF PT STATUS. PMH: HTN, DM ALLERGY: PCN MED: DENIES
[2021-03-23] MEDS ORDERED: MAGNESIUM OXIDE 400 MG TAB PO SCH (17:05)
[2021-03-23] MEDS ORDERED: POTASSIUM CHLORIDE 10 MEQ TABER PO SCH (17:05)
[2021-03-23 18:00] VITALS: BP 112/60
[2021-03-23 18:52] LABS: BARBITURATE, URINE NEGATIVE ng/ml (NEG <=200); BENZODIAZEPINE, URINE NEGATIVE ng/mL (NEG <=200); CANNABINOID, URINE NEGATIVE ng/mL (NEG <=50); COCAINE, URINE NEGATIVE ng/mL (NEG <=300); OPIATE, URINE NEGATIVE ng/mL (NEG <=2000); PHENCYCLIDINE SCREEN,URINE NEGATIVE ng/mL (NEG <=25)
[2021-03-23 19:00] LABS: APPEARANCE,URINE CLEAR (CLEAR); BILIRUBIN,URINE NEGATIVE (NEGATIVE); BLOOD, URINE TRACE-L (NEGATIVE); COLOR,URINE YELLOW (YELLOW); LEUKOCYTE ESTERASE ,URINE NEGATIVE (NEGATIVE); NITRITE, URINE NEGATIVE (NEGATIVE); UGLUCOSE TRACE (NEGATIVE)
[2021-03-23 19:10] LABS: RBC,URINE 0-5 /HPF (0-5); WBC,URINE 0-5 /HPF (0-5)
[2021-03-24] MEDS ORDERED: MULTIVITAMIN 1 TAB PO SCH (09:00)
--- NOTE | 2021-03-24 18:52 | NUR ---
LATE ENTRY- 0.9% NS BOLUS DISCONTINUED AT 1800
== END 2021-03-23 18:00 | disposition home or self-care (01) ==
LOC: MED 14:36
DX: R51.9 Headache, unspecified (principal); E11.9 Type 2 diabetes mellitus without complications; I10 Essential (primary) hypertension; F17.210 Nicotine dependence, cigarettes, uncomplicated; Z88.0 Allergy status to penicillin
CPT/HCPCS: 36415; 80053; 80305; 81001; 82550; 83735; 84100; 85025; 96360; 96361; 99283; J7030

== ENCOUNTER 2021-04-10 09:41 | Emergency (ER) | payer OTHER ==
[~2021-04-10] VITALS: Ht 147.3 cm; Wt 77.1 kg
[2021-04-10 09:55] VITALS: BP 115/80
--- NOTE | 2021-04-10 09:57 | NUR ---
DR VALDEZ EVALUATING PT IN TRIAGE
[2021-04-10] MEDS ORDERED: KETOROLAC 30 MG/ML VIAL IM ONE (10:00)
[2021-04-10 10:06] VITALS: BP 115/80
== END 2021-04-10 10:09 | disposition home or self-care (01) ==
LOC: MED 09:41
DX: R51.9 Headache, unspecified (principal); J02.9 Acute pharyngitis, unspecified; E11.9 Type 2 diabetes mellitus without complications; I10 Essential (primary) hypertension; Z88.0 Allergy status to penicillin; Z79.899 Other long term (current) drug therapy
CPT/HCPCS: 82948; 96372; 99283; J1885

== ENCOUNTER 2021-04-23 07:44 | Emergency (ER) | payer OTHER ==
[~2021-04-23] VITALS: Ht 149.9 cm; Wt 75.3 kg
[2021-04-23 07:47] VITALS: BP 125/72
--- NOTE | 2021-04-23 07:50 | NUR ---
Patient ambulated to bed 11. RN evaluating the patient at bedside.
[2021-04-23] MEDS ORDERED: METOCLOPRAMIDE 10 MG TAB PO ONE (08:05)
[2021-04-23] MEDS ORDERED: IBUPROFEN 600 MG TAB PO ONE (08:05)
[2021-04-23] MEDS ORDERED: ACETAMINOPHEN EXTRA STRENGTH 500 MG TAB PO ONE (08:05)
--- NOTE | 2021-04-23 08:05 | NUR ---
51/F presents to ED with c/o headache, nausea and vomiting. Patient states since this morning has had a 10/10 sharp headache accompanied with nausea and vomiting. Denies taking any medication prior to arrival to ED, denies dysuria, hematuria and diarrhea. Denies blurred vision, alert and oriented x4, answering questions appropriately.
--- NOTE | 2021-04-23 08:22 | NUR ---
Niurka swab collected and walked to lab.
[2021-04-23] MEDS ORDERED: METO-486 PO (08:31)
[2021-04-23] MEDS ORDERED: ACET-10509 PO (08:31)
--- NOTE | 2021-04-23 10:15 | NUR ---
PT ELOPED FROM FACILITY WITHOUT DISCHARGE INSTRUCTIONS.
== END 2021-04-23 10:15 | disposition home or self-care (01) ==
LOC: MED 07:44
DX: R51.9 Headache, unspecified (principal); Z20.822 Contact with and (suspected) exposure to COVID-19; J02.9 Acute pharyngitis, unspecified; R11.10 Vomiting, unspecified; E11.9 Type 2 diabetes mellitus without complications; I10 Essential (primary) hypertension; Z88.0 Allergy status to penicillin; Z79.899 Other long term (current) drug therapy
CPT/HCPCS: 81002; 87426; 99284; J8597

== ENCOUNTER 2021-05-26 09:59 | Emergency (ER) | payer OTHER ==
[~2021-05-26] VITALS: Ht 154.9 cm; Wt 76.2 kg
[~2021-05-26 09:59] MED LIST changes: +ACET-10509 PO; +METO-486 PO
[2021-05-26 10:29] VITALS: BP 80/43
--- NOTE | 2021-05-26 11:00 | NUR ---
11:00-PATIENT LEFT WITHOUT BEING SEEN BY DR. TORRES. NO FURTHER CARE PROVIDED FOR PATIENT.
== END 2021-05-26 11:00 | disposition left against medical advice (07) ==
LOC: MED 09:59
DX: R51.9 Headache, unspecified (principal); Z53.21 Procedure and treatment not carried out due to patient leaving prior to being seen by health care provider

== ENCOUNTER 2021-06-21 10:05 | Emergency (ER) | payer OTHER ==
[~2021-06-21] VITALS: Ht 152.4 cm; Wt 66.2 kg
[2021-06-21 10:10] VITALS: BP 97/48
--- NOTE | 2021-06-21 10:18 | NUR ---
Pt ambulated to bed 12.
--- NOTE | 2021-06-21 10:48 | NUR ---
51 Y/O FEMALE C/O LLQ ABD PAIN, N/V/D,COUGH, SALES,CONGESTION X 3 DAYS. ACTIVE BOWEL SOUNDS. LUNG SOUNDS CLEAR. PT STATES 10/10 CRAMPING PAIN. TENDER UPON PALPATION PMH:DM, HTN ALLERGIES: PENICILLINS
--- NOTE | 2021-06-21 11:41 | NUR ---
DR STOCKTNO AT BEDSIDE EXAMINING PT
[2021-06-21] MEDS ORDERED: KETOROLAC 60 MG/2 ML VIAL IM ONE (12:05)
[2021-06-21] MEDS ORDERED: PRED20TA5 PO (12:09)
[2021-06-21] MEDS ORDERED: IBUP-2213 PO (12:09)
[2021-06-21 12:30] VITALS: BP 97/48
--- NOTE | 2021-06-21 12:30 | NUR ---
Patient discharged with v/s stable. Written and verbal after care instructions given and explained. Patient alert, oriented and verbalized understanding of instructions. Ambulatory with steady gait. All questions addressed prior to discharge. ID band removed. Patient advised to follow up with PMD. Rx of IBUPROFEN AND PREDNISONE given. Patient educated on indication of medication including possible reaction and side effects. Opportunity to ask questions provided and answered.
== END 2021-06-21 12:30 | disposition home or self-care (01) ==
LOC: MED 10:05
DX: J02.9 Acute pharyngitis, unspecified (principal); R05 Cough; E11.9 Type 2 diabetes mellitus without complications; I10 Essential (primary) hypertension; Z88.0 Allergy status to penicillin; Z79.899 Other long term (current) drug therapy
CPT/HCPCS: 81002; 81025; 96372; 99283; J1885

== ENCOUNTER 2021-07-31 10:41 | Emergency (ER) | payer OTHER ==
[~2021-07-31] VITALS: Ht 147.3 cm; Wt 75.4 kg
[~2021-07-31 10:41] MED LIST changes: +IBUP-2213 PO; +PRED20TA5 PO
[2021-07-31 10:58] VITALS: BP 121/73
--- NOTE | 2021-07-31 11:06 | NUR ---
TENT 1.
--- NOTE | 2021-07-31 11:15 | NUR ---
BIBS C/O 5/10 EPIGASTRIC PAIN, N/V/D, COUGH,SALES,SORE THROAT X 4 DAYS. ABDOMEN SOFT. SKIN IS PINK/WARM/DRY; AAOX4 WITH EVEN AND STEADY GAIT; LUNGS CLEAR BL; HR EVEN AND REGULAR; PT DENIES ANY FEVER, CP, SOB AT THIS TIME.
--- NOTE | 2021-07-31 11:50 | NUR ---
PATIENT LEFT WITHOUT BEING SEEN BY DR. BUTLER. NO FURTHER CARE PROVIDED FOR PATIENT.
== END 2021-07-31 12:00 | disposition left against medical advice (07) ==
LOC: MED 10:41
DX: R10.13 Epigastric pain (principal); R11.2 Nausea with vomiting, unspecified; R05.9 Cough, unspecified; R51.9 Headache, unspecified; J02.9 Acute pharyngitis, unspecified; Z53.21 Procedure and treatment not carried out due to patient leaving prior to being seen by health care provider
CPT/HCPCS: 81002; 81025

== ENCOUNTER 2021-09-09 00:24 | Emergency (ER) | payer OTHER ==
[~2021-09-09] VITALS: Ht 147.3 cm; Wt 65.8 kg
[2021-09-09 00:54] VITALS: BP 139/76
--- NOTE | 2021-09-09 01:25 | NUR ---
Dr. Rodríguez examining patient.
[2021-09-09] MEDS ORDERED: ONDANSETRON 4 MG/2 ML VIAL IVP ONE (01:35)
--- NOTE | 2021-09-09 01:45 | NUR ---
IV ESTABLISHED 20G RIGHT AC.
[2021-09-09 01:48] LABS: BASOPHILS % (AUTO) 0.5 % (0.0-2.0); EOSINOPHILS # (AUTO) 0.1 K/uL (0-0.4); EOSINOPHILS % (AUTO) 0.8 % (0.0-4.0); HEMOGLOBIN 13.3 g/dL (12.0-16.0); LYMPHOCYTES # (AUTO) 3.1 K/uL (2.5-16.5); LYMPHOCYTES % (AUTO) 33.5 % (20.5-51.1); MEAN CORPUSCULAR HEMOGLOBIN 31 pg (27-31); MEAN CORPUSCULAR HGB CONC 34 g/dL (33-37); MEAN CORPUSCULAR VOLUME 89.8 fL (80-94); MONOCYTES # (AUTO) 0.5 K/uL (0.8-1.0); MONOCYTES % (AUTO) 5.4 % (1.7-9.3); NEUTROPHILS # (AUTO) 5.6 K/uL (1.8-7.7); NEUTROPHILS % (AUTO) 59.8 % (42.2-75.2); PLATELET COUNT (AUTO) 227 K/uL (140-450); RED BLOOD CELL COUNT(AUTO) 4.35 MIL/uL (4.20-5.40); RED CELL DISTRIBUTION WIDTH 12.8 % (11.6-13.7); WHITE BLOOD COUNT (AUTO) 9.3 K/uL (4.8-10.8)
--- NOTE | 2021-09-09 02:01 | NUR ---
RAPID AND CUTURE STREP SWAB AND COLLECTED AND SENT TO LAB.
[2021-09-09 02:03] LABS: ANION GAP 13.5 (8-16); CARBON DIOXIDE 28.4 mmol/L (21-32); CREATININE 0.8 mg/dL (0.6-1.3); POTASSIUM 3.9 mmol/L (3.5-5.1); TOTAL BILIRUBIN 0.4 mg/dL (0.0-1.0)
--- NOTE | 2021-09-09 02:15 | NUR ---
Patient appears to be resting comfortably in bed. Vital Signs within normal limits. Respirations even and unlabored. BED AT LOWEST POSITION AND BOTH BED RAILS DOWN.
[2021-09-09] MEDS ORDERED: CEFP200T20 PO (02:19)
--- NOTE | 2021-09-09 03:00 | NUR ---
Patient discharged with v/s stable. Written and verbal after care instructions given and explained. Patient alert, oriented and verbalized understanding of instructions. Ambulatory with steady gait. All questions addressed prior to discharge. ID band removed. Patient advised to follow up with PMD. Rx of CEFPODOXIME PROXETIL given. Patient educated on indication of medication including possible reaction and side effects. Opportunity to ask questions provided and answered.
[2021-09-09 03:06] VITALS: BP 147/96
--- NOTE | 2021-09-09 03:25 | NUR ---
The patient's care was reviewed and supervised by Natalee Schwartz RN.
== END 2021-09-09 03:00 | disposition home or self-care (01) ==
LOC: MED 00:24
DX: H66.93 Otitis media, unspecified, bilateral (principal); E11.9 Type 2 diabetes mellitus without complications; I10 Essential (primary) hypertension; Z79.2 Long term (current) use of antibiotics; Z79.1 Long term (current) use of non-steroidal anti-inflammatories (NSAID); Z79.899 Other long term (current) drug therapy; Z88.0 Allergy status to penicillin
CPT/HCPCS: 36415; 80053; 85025; 87081; 96374; 99283; J2405

== ENCOUNTER 2021-10-17 11:02 | Emergency (ER) | payer OTHER ==
[~2021-10-17 11:02] MED LIST changes: +CEFP200T20 PO
--- NOTE | 2021-10-17 12:44 | NUR ---
lwbs at this time
== END 2021-10-17 12:44 | disposition left against medical advice (07) ==
LOC: MED 11:02
DX: Z53.21 Procedure and treatment not carried out due to patient leaving prior to being seen by health care provider (principal)

== ENCOUNTER 2021-10-28 08:37 | Emergency (ER) | payer OTHER, SELFPAY ==
[~2021-10-28] VITALS: Ht 152.4 cm; Wt 76.2 kg
[2021-10-28 08:50] VITALS: BP 121/72
--- NOTE | 2021-10-28 08:50 | NUR ---
PT TO TENT 1
--- NOTE | 2021-10-28 09:00 | NUR ---
BIBA C/O COUGH, FEVER,BODY ACHE, URINARY BURNING, SALES, N/V/D ,LOSS OF TASTE/SMELL X 3 DAYS. COVID TASTED POSITIVE 2 DAYS AGO. PMH: DM, HTN
--- NOTE | 2021-10-28 09:10 | NUR ---
ER/MD DR. HERNANDEZ WAN PT IN TENT
--- NOTE | 2021-10-28 09:18 | NUR ---
PT SENT TO XRAY WITH TECH
--- NOTE | 2021-10-28 09:19 | NUR ---
COVID ANANDA SWAB DONE.
--- NOTE | 2021-10-28 11:40 | NUR ---
Patient being reevaluated by dr Boo at tent 1.
[2021-10-28 11:45] VITALS: BP 121/72
--- NOTE | 2021-10-28 11:51 | NUR ---
PATIENT ELOPED FROM FACILITY. DISCHARGE INSTRUCTIONS NOT GIVEN TO PATIENT. DR. NG NOTIFIED.
== END 2021-10-28 11:51 | disposition left against medical advice (07) ==
LOC: MED 08:37
DX: B34.9 Viral infection, unspecified (principal); Z20.822 Contact with and (suspected) exposure to COVID-19; E11.9 Type 2 diabetes mellitus without complications; I10 Essential (primary) hypertension; Z88.0 Allergy status to penicillin
CPT/HCPCS: 71045; 81002; 93005; 99285

== ENCOUNTER 2021-11-25 08:58 | Emergency (ER) | payer OTHER, SELFPAY ==
[~2021-11-25] VITALS: Ht 142.2 cm; Wt 73.5 kg
[2021-11-25 09:11] VITALS: BP 131/85
--- NOTE | 2021-11-25 09:20 | NUR ---
51 Y/O FEMALE AMBULATED TO BED 6 WITH STEADY GAIT, C/O HEADACHE 10/10, COUGH, FEVER, SORE THROAT, CP, SOB AND N/V X3 DAYS. NO HOME MEDS WERE TAKEN FOR HER SYMPTOMS, SHE IS NOT COVID VACCINATED. DENIES PMH ALLERGIES: MOR
--- NOTE | 2021-11-25 09:34 | NUR ---
DR STOCKTON EVALUATING PATIENT AT BEDSIDE
[2021-11-25] MEDS ORDERED: IBUP-2213 PO (09:43)
[2021-11-25] MEDS ORDERED: PRED20TA5 PO (09:43)
[2021-11-25] MEDS ORDERED: ATA25 PO (09:43)
[2021-11-25 09:49] VITALS: BP 131/85
--- NOTE | 2021-11-25 09:49 | NUR ---
Patient discharged with v/s stable. Written and verbal after care instructions ABOUT COUGH, SORE THROAT, GENERALIZED ANXIETY DISORDER given and explained. Patient alert, oriented and verbalized understanding of instructions. Ambulatory with steady gait. All questions addressed prior to discharge. ID band removed. Patient advised to follow up with PMD. Rx of ATARAX, IBUPROFEN, PREDNISONE given.
--- NOTE | 2021-11-25 09:50 | NUR ---
The patient's care was reviewed and supervised by Lexx Gipson RN.
== END 2021-11-25 09:49 | disposition home or self-care (01) ==
LOC: MED 08:58
DX: J02.9 Acute pharyngitis, unspecified (principal); F41.9 Anxiety disorder, unspecified; R05.9 Cough, unspecified; E11.9 Type 2 diabetes mellitus without complications; I10 Essential (primary) hypertension; Z79.899 Other long term (current) drug therapy; Z88.0 Allergy status to penicillin
CPT/HCPCS: 99283

== ENCOUNTER 2021-12-26 09:30 | Emergency (ER) | payer OTHER, SELFPAY ==
[~2021-12-26] VITALS: Ht 160 cm; Wt 83.9 kg
[2021-12-26 09:30] VITALS: BP 101/62
[~2021-12-26 09:30] MED LIST changes: +ATA25 PO
--- NOTE | 2021-12-26 09:38 | NUR ---
Patient wheelchair assisted to lobby.
[2021-12-26] MEDS ORDERED: ACETAMINOPHEN EXTRA STRENGTH 500 MG TAB PO ONE (10:35)
[2021-12-26 10:57] VITALS: BP 101/62
== END 2021-12-26 10:57 | disposition home or self-care (01) ==
LOC: MED 09:30
DX: R51.9 Headache, unspecified (principal); E11.9 Type 2 diabetes mellitus without complications; I10 Essential (primary) hypertension; Z79.899 Other long term (current) drug therapy; Z88.0 Allergy status to penicillin
CPT/HCPCS: 99282

== ENCOUNTER 2022-01-08 15:02 | Emergency (ER) | payer OTHER ==
--- NOTE | 2022-01-08 15:02 | NUR ---
JARROD RUBIO VIA [facility], TAKEN TO LOBBY IN A W/C.
--- NOTE | 2022-01-08 15:49 | NUR ---
PATIENT CALLED TO TRIAGE NO ANSWER IN LOBBY OR PARKING LOT
--- NOTE | 2022-01-08 15:49 | NUR ---
PATIENT LEFT WITHOUT BEING SEEN BY DR. BUTLER. NO FURTHER CARE PROVIDED FOR PATIENT.
== END 2022-01-08 15:49 | disposition left against medical advice (07) ==
LOC: MED 15:02
DX: R51.9 Headache, unspecified (principal); Z53.21 Procedure and treatment not carried out due to patient leaving prior to being seen by health care provider

== ENCOUNTER 2022-02-23 10:17 | Emergency (ER) | payer OTHER ==
[~2022-02-23] VITALS: Ht 142.2 cm; Wt 70.8 kg
[2022-02-23 10:17] VITALS: BP 117/86
--- NOTE | 2022-02-23 10:39 | NUR ---
PT AMBULATED TO BED 10.
[2022-02-23] MEDS ORDERED: KETOROLAC 60 MG/2 ML VIAL IM ONE (12:00)
--- NOTE | 2022-02-23 12:00 | NUR ---
52 y/o female with headache, ear pain, sore throat and cough that started today. denies nausea, vomiting, diarrhea. skin is pink/warm/dry. amharic speaking, a&o x4 with even and steady gait. lungs clear bl, heart rate even and regular. pt denies dysuria, hematuria, urinary frequency or retention, or anyone sick in the household with the same symptoms. pt denies any fever, cp, sob, or cough at this time. pt states pain is 1/10 at this time. patient positioned for comfort. hob elevated. bed down. ermd made aware of pt. pmh: denies allergy: penicillin
[2022-02-23] MEDS ORDERED: PRED20TA5 PO (12:08)
[2022-02-23] MEDS ORDERED: IBUP-2213 PO (12:08)
[2022-02-23 12:36] VITALS: BP 117/86
--- NOTE | 2022-02-23 12:36 | NUR ---
left without signing discharge paperwork
== END 2022-02-23 12:36 | disposition home or self-care (01) ==
LOC: MED 10:17
DX: R51.9 Headache, unspecified (principal); J02.9 Acute pharyngitis, unspecified; H92.03 Otalgia, bilateral; E11.9 Type 2 diabetes mellitus without complications; I10 Essential (primary) hypertension; Z79.899 Other long term (current) drug therapy; Z88.0 Allergy status to penicillin
CPT/HCPCS: 81002; 81025; 96372; 99283; J1885

== ENCOUNTER 2022-04-15 08:02 | Emergency (ER) | payer OTHER ==
[~2022-04-15] VITALS: Ht 144.8 cm; Wt 74.4 kg
[2022-04-15 08:19] VITALS: BP 106/74
--- NOTE | 2022-04-15 08:20 | NUR ---
52 Y/O FEMALE C.O OF ABD PAIN, N/V/D X1DAY. DENIES ANY MEDICATION FOR PAIN, N/V/D ALLERGY: PCN PMH: ASTHMA
--- NOTE | 2022-04-15 08:55 | NUR ---
DR GUTIERREZ AT PT SIDE FOR FURTHER EVAL
[2022-04-15 10:46] LABS: ALBUMIN 3.7 g/dL (3.4-5.0); ANION GAP 13.1 (8-16); CARBON DIOXIDE 24.9 mmol/L (21-32); CREATININE 0.7 mg/dL (0.6-1.3); TOTAL BILIRUBIN 0.3 mg/dL (0.0-1.0)
[2022-04-15 10:47] LABS: BASOPHILS % (AUTO) 0.5 % (0.0-2.0); EOSINOPHILS % (AUTO) 0.5 % (0.0-4.0); HEMATOCRIT 39.1 % (36-48); HEMOGLOBIN 13.2 g/dL (12.0-16.0); LYMPHOCYTES # (AUTO) 2.7 K/uL (2.5-16.5); LYMPHOCYTES % (AUTO) 31.8 % (20.5-51.1); MEAN CORPUSCULAR HEMOGLOBIN 30 pg (27-31); MEAN CORPUSCULAR HGB CONC 34 g/dL (33-37); MEAN CORPUSCULAR VOLUME 88.7 fL (80-94); MONOCYTES # (AUTO) 0.5 K/uL (0.8-1.0); MONOCYTES % (AUTO) 5.3 % (1.7-9.3); NEUTROPHILS # (AUTO) 5.3 K/uL (1.8-7.7); NEUTROPHILS % (AUTO) 61.9 % (42.2-75.2); PLATELET COUNT (AUTO) 232 K/uL (140-450); RED CELL DISTRIBUTION WIDTH 13.1 % (11.6-13.7); WHITE BLOOD COUNT (AUTO) 8.6 K/uL (4.8-10.8)
--- NOTE | 2022-04-15 11:10 | NUR ---
ATTEMPTED TO CALL PT, NO RESPONSE
--- NOTE | 2022-04-15 11:11 | NUR ---
PT UP FOR D/C BY DR GUTIERREZ. NOT FOUND IN LOBBY/OUTSIDE. PT LEFT WITHOUT D/C PAPERWORK.
== END 2022-04-15 11:11 | disposition home or self-care (01) ==
LOC: MED 08:02
DX: K29.70 Gastritis, unspecified, without bleeding (principal); I10 Essential (primary) hypertension; E11.9 Type 2 diabetes mellitus without complications; Z79.4 Long term (current) use of insulin; Z79.899 Other long term (current) drug therapy; Z88.0 Allergy status to penicillin; Z98.890 Other specified postprocedural states
CPT/HCPCS: 36415; 76700; 80053; 83690; 85025; 99284; Q0092

== ENCOUNTER 2022-05-18 10:41 | Emergency (ER) | payer OTHER ==
[~2022-05-18] VITALS: Ht 147.3 cm; Wt 74.4 kg
[2022-05-18 11:29] VITALS: BP 123/52
[2022-05-18] MEDS ORDERED: KETOROLAC 30 MG/ML VIAL IM ONE (12:05)
--- NOTE | 2022-05-18 12:27 | NUR ---
PT AMBULATED TO RESTROOM
--- NOTE | 2022-05-18 14:05 | NUR ---
52/F PRESENTS TO ED WITH C/O JAW PAIN, HEADACHE, SORE THROAT AND DYSURIA X2 DAYS. DENIES ABD PAIN, NAUSEA, VOMITING, FEVERS OR CHILLS. DENIES TAKING MEDS FOR SYMPTOMS.
--- NOTE | 2022-05-18 14:05 | NUR ---
STRAIGHT Urinary catheter inserted utilizing sterile technique. Immediate return of 100ML YELLOW CLEAR urine noted. Urine sample collected AND DIPPED . Pt tolerated procedure WELL
--- NOTE | 2022-05-18 14:05 | NUR ---
Joyce gonzalez in ED - 05/18/22 at 1417 by PHSEP STRAIGHT Urinary catheter inserted utilizing sterile technique. Immediate return of 80ML urine noted. Urine sample collected and sent to lab. Pt tolerated procedure WELL
[2022-05-18] MEDS ORDERED: BENZ-300 PO (14:14)
[2022-05-18] MEDS ORDERED: IMO2 PO (14:14)
[2022-05-18] MEDS ORDERED: IBUP-2213 PO (14:14)
--- NOTE | 2022-05-18 14:17 | NUR ---
PT SWABBED FOR COVID(ANANDA). WALKED TO LAB
[2022-05-18 14:54] VITALS: BP 110/69
--- NOTE | 2022-05-18 14:54 | NUR ---
Patient discharged with v/s stable. Written and verbal after care instructions FOR DYSURIA AND GENERAL HEADACHE W/O CAUSE given and explained. Patient alert, oriented and verbalized understanding of instructions. Ambulatory with steady gait. All questions addressed prior to discharge. ID band removed. Patient advised to follow up with PMD. Rx of IBUPROFEN, LOPERAMIDE HYDROCLORIDE AND BENZOCAINE/MENTHOL given. Opportunity to ask questions provided and answered.
== END 2022-05-18 14:54 | disposition home or self-care (01) ==
LOC: MED 10:41
DX: J02.9 Acute pharyngitis, unspecified (principal); Z20.822 Contact with and (suspected) exposure to COVID-19; R30.0 Dysuria; R51.9 Headache, unspecified; I10 Essential (primary) hypertension; E11.9 Type 2 diabetes mellitus without complications; Z88.0 Allergy status to penicillin; Z79.4 Long term (current) use of insulin; Z79.899 Other long term (current) drug therapy
CPT/HCPCS: 81002; 81025; 87426; 96372; 99283; J1885

== ENCOUNTER 2022-06-21 10:51 | Emergency (ER) | payer OTHER ==
[~2022-06-21] VITALS: Ht 154.9 cm; Wt 74.8 kg
[~2022-06-21 10:51] MED LIST changes: +BENZ-300 PO; +IMO2 PO
[2022-06-21 10:57] VITALS: BP 117/66
--- NOTE | 2022-06-21 11:00 | NUR ---
AMBULATED TO ER BED 1
--- NOTE | 2022-06-21 11:45 | NUR ---
52YO FEMALE PT C/O DYSURIA, THROAT , BODY AND 3/10 HEADACHES X3DAYS. DENIES TAKING MEDICATION FOR PAIN, N/V/D , CHEST PAIN OR SOB. PRESENTS W/O COUGH. DENIES ANYONE SICK AT HOME. REPORTS BURNING DYSURIA THAT WILL CAUSE NILSON PELVIC DISCOMFORT. PT AAOX4, NO VISIBLE DISTRESS. RESPIRATIONS EVEN AND UNLABORED HX:HTN, DIABETES ALLERGIES: PENECILLIN
--- NOTE | 2022-06-21 12:05 | NUR ---
VERNON NAJERA AT BEDSIDE FOR EVALUATION
[2022-06-21] MEDS ORDERED: IBUPROFEN 600 MG TAB PO ONE (12:20)
[2022-06-21 13:50] VITALS: BP 125/66
--- NOTE | 2022-06-21 14:22 | NUR ---
PT LEFT W/O PAPERWORK
[2022-06-21] MEDS ORDERED: BENZ-300 PO (14:24)
[2022-06-21] MEDS ORDERED: IBUP-2213 PO (14:24)
[2022-06-21] MEDS ORDERED: PROM118S5 PO (14:24)
--- NOTE | 2022-06-21 14:41 | NUR ---
The patient's care was reviewed and supervised by ED Agency Nurse 9, RN, RN.
== END 2022-06-21 14:22 | disposition home or self-care (01) ==
LOC: MED 10:51
DX: B34.9 Viral infection, unspecified (principal); Z20.822 Contact with and (suspected) exposure to COVID-19; I10 Essential (primary) hypertension; E11.9 Type 2 diabetes mellitus without complications; Z88.0 Allergy status to penicillin; Z79.4 Long term (current) use of insulin; Z79.899 Other long term (current) drug therapy
CPT/HCPCS: 99283

== ENCOUNTER 2022-08-04 09:48 | Emergency (ER) | payer OTHER ==
[~2022-08-04] VITALS: Ht 142.2 cm; Wt 73.7 kg
[~2022-08-04 09:48] MED LIST changes: +PROM118S5 PO
[2022-08-04 10:04] VITALS: BP 124/93
--- NOTE | 2022-08-04 10:30 | NUR ---
PT C/O ABDOMINAL PAIN WITH N/V AND SORE THROAT X3 DAYS. IV INSERTED TO LEFT HAND #20GUAGE MEDICATED PER ORDER. NAD. SAFETY MAINTAINED.
[2022-08-04] MEDS ORDERED: NACL 0.9% 1,000 ML IV SCH (11:05)
[2022-08-04] MEDS ORDERED: ONDANSETRON 4 MG/2 ML VIAL IVP ONE (11:05)
[2022-08-04 11:33] LABS: BASOPHILS # (AUTO) 0.1 K/uL (0.00-0.22); EOSINOPHILS % (AUTO) 0.5 % (0.0-4.0); HEMATOCRIT 39.5 % (36-48); HEMOGLOBIN 13.6 g/dL (12.0-16.0); LYMPHOCYTES # (AUTO) 2.8 K/uL (2.5-16.5); LYMPHOCYTES % (AUTO) 37.8 % (20.5-51.1); MEAN CORPUSCULAR HEMOGLOBIN 30 pg (27-31); MEAN CORPUSCULAR HGB CONC 34 g/dL (33-37); MEAN CORPUSCULAR VOLUME 87.7 fL (80-94); MONOCYTES # (AUTO) 0.4 K/uL (0.8-1.0); MONOCYTES % (AUTO) 5.4 % (1.7-9.3); NEUTROPHILS # (AUTO) 4.1 K/uL (1.8-7.7); NEUTROPHILS % (AUTO) 55.3 % (42.2-75.2); PLATELET COUNT (AUTO) 220 K/uL (140-450); RED CELL DISTRIBUTION WIDTH 12.6 % (11.6-13.7); WHITE BLOOD COUNT (AUTO) 7.5 K/uL (4.8-10.8)
[2022-08-04 11:51] LABS: ALBUMIN 3.8 g/dL (3.4-5.0); CREATININE 0.7 mg/dL (0.6-1.3); TOTAL BILIRUBIN 0.5 mg/dL (0.0-1.0)
[2022-08-04] MEDS ORDERED: ALUMINUM HYD/MAG/SIMETHICONE 30 ML UDC PO ONE (12:10)
--- NOTE | 2022-08-04 12:14 | NUR ---
PT TAKEN TO CT VIA CORBIN
--- NOTE | 2022-08-04 12:21 | NUR ---
PT BROUGHT BACK FROM CT VIA CORBIN
[2022-08-04 13:33] LABS: APPEARANCE,URINE CLEAR (CLEAR); BILIRUBIN,URINE NEGATIVE (NEGATIVE); BLOOD, URINE TRACE-I (NEGATIVE); COLOR,URINE YELLOW (YELLOW); LEUKOCYTE ESTERASE ,URINE NEGATIVE (NEGATIVE); NITRITE, URINE NEGATIVE (NEGATIVE); UGLUCOSE NEGATIVE (NEGATIVE)
[2022-08-04 13:47] LABS: RBC,URINE NONE SEEN /HPF (0-5); WBC,URINE 0-5 /HPF (0-5)
[2022-08-04] MEDS ORDERED: ONDA-188 SL (14:31)
[2022-08-04] MEDS ORDERED: FAMO-90 PO (14:31)
[2022-08-04 14:37] VITALS: BP 128/74
--- NOTE | 2022-08-04 14:37 | NUR ---
Patient discharged with v/s stable. Written and verbal after care instructions given and explained. Patient alert, oriented and verbalized understanding of instructions. Ambulatory with steady gait. All questions addressed prior to discharge. ID band removed. Patient advised to follow up with PMD. Rx of ZOFRAN, PEPCID given. Patient educated on indication of medication including possible reaction and side effects. Opportunity to ask questions provided and answered.
== END 2022-08-04 14:37 | disposition home or self-care (01) ==
LOC: MED 09:48
DX: R10.13 Epigastric pain (principal); I10 Essential (primary) hypertension; E11.9 Type 2 diabetes mellitus without complications; Z79.4 Long term (current) use of insulin; Z79.899 Other long term (current) drug therapy
CPT/HCPCS: 36415; 74176; 76705; 80053; 81001; 83690; 85025; 96361; 96374; 99284; J2405; Q0092; J7030

== ENCOUNTER 2022-11-01 10:24 | Emergency (ER) | payer OTHER ==
[~2022-11-01] VITALS: Ht 157.5 cm; Wt 73.5 kg
[~2022-11-01 10:24] MED LIST changes: +FAMO-90 PO; +ONDA-188 SL
--- NOTE | 2022-11-01 10:25 | NUR ---
JARROD ROJAS ER CHAIR
[2022-11-01 10:28] VITALS: BP 109/78
--- NOTE | 2022-11-01 11:04 | NUR ---
PT REPORTS SHE DOESNT WANT TO STAY THAT SHES FEELING BETTER. PATIENT ELOPED FROM FACILITY. DISCHARGE INSTRUCTIONS NOT GIVEN TO PATIENT. NOTIFIED.
== END 2022-11-01 11:04 | disposition left against medical advice (07) ==
LOC: MED 10:24
DX: R51.9 Headache, unspecified (principal); E11.9 Type 2 diabetes mellitus without complications; I10 Essential (primary) hypertension; Z79.899 Other long term (current) drug therapy; Z88.0 Allergy status to penicillin
CPT/HCPCS: 99283

== ENCOUNTER 2022-11-20 10:57 | Emergency (ER) | payer OTHER ==
[~2022-11-20] VITALS: Ht 157.5 cm; Wt 73.9 kg
[2022-11-20 11:15] VITALS: BP 113/71
--- NOTE | 2022-11-20 11:46 | NUR ---
Pt bibs for martin that started this morning. Pt denies trauma. Pain is ache/throb, non radiating, 6/10, constant. Pt is a/o x 4, vss, no ss of acute distress, breathing equal and unlabored, speech clear. Pt on monitor and gave urine sample.
[2022-11-20 14:04] LABS: BASOPHILS % (AUTO) 0.6 % (0.0-2.0); EOSINOPHILS % (AUTO) 0.5 % (0.0-4.0); HEMATOCRIT 38.5 % (36-48); HEMOGLOBIN 12.9 g/dL (12.0-16.0); LYMPHOCYTES # (AUTO) 2.9 K/uL (2.5-16.5); LYMPHOCYTES % (AUTO) 35.2 % (20.5-51.1); MEAN CORPUSCULAR HEMOGLOBIN 30 pg (27-31); MEAN CORPUSCULAR HGB CONC 34 g/dL (33-37); MEAN CORPUSCULAR VOLUME 88.6 fL (80-94); MONOCYTES # (AUTO) 0.5 K/uL (0.8-1.0); MONOCYTES % (AUTO) 6.4 % (1.7-9.3); NEUTROPHILS # (AUTO) 4.8 K/uL (1.8-7.7); NEUTROPHILS % (AUTO) 57.3 % (42.2-75.2); PLATELET COUNT (AUTO) 245 K/uL (140-450); RED BLOOD CELL COUNT(AUTO) 4.34 MIL/uL (4.20-5.40); RED CELL DISTRIBUTION WIDTH 12.6 % (11.6-13.7); WHITE BLOOD COUNT (AUTO) 8.3 K/uL (4.8-10.8)
[2022-11-20 14:43] LABS: ALBUMIN 4.1 g/dL (3.4-5.0); ANION GAP 11.6 (8-16); CARBON DIOXIDE 28.1 mmol/L (21-32); CREATININE 0.8 mg/dL (0.6-1.3); POTASSIUM 3.7 mmol/L (3.5-5.1); TOTAL BILIRUBIN 0.4 mg/dL (0.0-1.0)
--- NOTE | 2022-11-20 16:00 | NUR ---
LEFT W/P DC PAPERS, NO MEDS GIVEN, ERMD MADE AWARE
== END 2022-11-20 16:11 | disposition home or self-care (01) ==
LOC: MED 10:57
DX: B34.9 Viral infection, unspecified (principal); Z20.822 Contact with and (suspected) exposure to COVID-19; I10 Essential (primary) hypertension; E11.9 Type 2 diabetes mellitus without complications; R10.13 Epigastric pain; F20.9 Schizophrenia, unspecified; Z79.899 Other long term (current) drug therapy; Z79.1 Long term (current) use of non-steroidal anti-inflammatories (NSAID); Z88.0 Allergy status to penicillin
CPT/HCPCS: 36415; 80053; 83690; 85025; 99283

== ENCOUNTER 2023-02-02 10:11 | Emergency (ER) | payer OTHER ==
[~2023-02-02] VITALS: Ht 157.5 cm; Wt 73.9 kg
[2023-02-02 10:31] VITALS: BP 119/76
--- NOTE | 2023-02-02 12:14 | NUR ---
VERNON ZAVALA ATTEMPTED TO BRING PT BACK, NOT FOUND IN LOBBY/OUTSIDE
--- NOTE | 2023-02-02 12:34 | NUR ---
2ND ATTEMPT, NOT FOUND IN LOBBY/OUTSIDE
--- NOTE | 2023-02-02 12:45 | NUR ---
LAST ATTEMPT, NOT FOUND. PATIENT LEFT WITHOUT BEING SEEN BY DR. NG. NO FURTHER CARE PROVIDED FOR PATIENT.
== END 2023-02-02 12:45 | disposition left against medical advice (07) ==
LOC: MED 10:11
DX: R51.9 Headache, unspecified (principal); J02.9 Acute pharyngitis, unspecified; R11.0 Nausea; H92.03 Otalgia, bilateral; Z53.21 Procedure and treatment not carried out due to patient leaving prior to being seen by health care provider
CPT/HCPCS: 99281

== ENCOUNTER 2023-03-11 07:55 | Inpatient (IN) | payer OTHER ==
[~2023-03-11] VITALS: Ht 149.9 cm; Wt 72.6 kg
[2023-03-11 08:20] VITALS: BP 100/62
[2023-03-11] MEDS ORDERED: KETOROLAC 30 MG/ML VIAL IVP ONE (09:00)
[2023-03-11] MEDS ORDERED: NACL 0.9% 1,000 ML IV SCH (09:00)
[2023-03-11] MEDS ORDERED: ONDANSETRON 4 MG/2 ML VIAL IVP ONE ×2 (09:00→12:10)
[2023-03-11 09:29] LABS: APPEARANCE,URINE CLEAR (CLEAR); BILIRUBIN,URINE NEGATIVE (NEGATIVE); BLOOD, URINE TRACE-I (NEGATIVE); COLOR,URINE YELLOW (YELLOW); LEUKOCYTE ESTERASE ,URINE NEGATIVE (NEGATIVE); NITRITE, URINE NEGATIVE (NEGATIVE); UGLUCOSE NEGATIVE (NEGATIVE)
[2023-03-11 09:32] LABS: BASOPHILS % (AUTO) 0.6 % (0.0-2.0); EOSINOPHILS # (AUTO) 0.1 K/uL (0-0.4); EOSINOPHILS % (AUTO) 0.8 % (0.0-4.0); HEMATOCRIT 38.8 % (36-48); HEMOGLOBIN 13.3 g/dL (12.0-16.0); LYMPHOCYTES # (AUTO) 2.4 K/uL (2.5-16.5); LYMPHOCYTES % (AUTO) 34.9 % (20.5-51.1); MEAN CORPUSCULAR HEMOGLOBIN 30 pg (27-31); MEAN CORPUSCULAR HGB CONC 34 g/dL (33-37); MEAN CORPUSCULAR VOLUME 87.9 fL (80-94); MONOCYTES # (AUTO) 0.3 K/uL (0.8-1.0); MONOCYTES % (AUTO) 4.5 % (1.7-9.3); NEUTROPHILS # (AUTO) 4.1 K/uL (1.8-7.7); NEUTROPHILS % (AUTO) 59.2 % (42.2-75.2); PLATELET COUNT (AUTO) 224 K/uL (140-450); RED BLOOD CELL COUNT(AUTO) 4.42 MIL/uL (4.20-5.40); RED CELL DISTRIBUTION WIDTH 13.3 % (11.6-13.7); WHITE BLOOD COUNT (AUTO) 6.9 K/uL (4.8-10.8)
[2023-03-11 09:48] LABS: CALCIUM OXALATE CRYSTALS,UR None Seen /HPF (None Seen); COARSE GRANULAR CASTS,URINE None Seen /LPF (None Seen); FINE GRANULAR CASTS,URINE None Seen /LPF (None Seen); HYALINE CASTS, URINE None Seen /LPF (None Seen); OTHER CASTS, URINE None Seen /LPF (None Seen); OTHER CRYSTALS,URINE None Seen /HPF (None Seen); RBC,URINE 0-5 /HPF (0-5); RED BLOOD CELL CASTS,URINE None Seen /LPF (None Seen); TRICHOMONAS,URINE None Seen /HPF (None Seen); TRIPLE PHOSPHATE CRYSTAL,UR None Seen /HPF (None Seen); URIC ACID CRYSTALS,URINE None Seen /HPF (None Seen); URINE AMORPHOUS URATE None Seen /HPF (None Seen); WAXY CASTS,URINE None Seen /LPF (None Seen); YEAST,URINE None Seen /HPF (None Seen)
[2023-03-11 09:49] LABS: ALBUMIN 3.8 g/dL (3.4-5.0); ANION GAP 10.8 (8-16); CARBON DIOXIDE 30.1 mmol/L (21-32); CREATININE 0.7 mg/dL (0.6-1.3); POTASSIUM 3.9 mmol/L (3.5-5.1); TOTAL BILIRUBIN 0.3 mg/dL (0.0-1.0)
--- NOTE | 2023-03-11 10:05 | NUR ---
PT WHEELED TO CT SCAN
[2023-03-11] MEDS ORDERED: MORPHINE SULFATE 4 MG/ML SYR IVP ONE ×2 (10:55→12:10)
[2023-03-11] MEDS ORDERED: MAG SULF 2000 MG/WATER PREMIX 50 ML IV PRN (14:30)
[2023-03-11] MEDS ORDERED: POTASSIUM CHLORIDE 10 MEQ TABER PO PRN (14:30)
[2023-03-11] MEDS ORDERED: KCL 20 MEQ IN 100 mL PREMIX 200 ML IV PRN (14:30)
[2023-03-11] MEDS ORDERED: HYDROcodone/APAP 5/325 MG 1 TAB TAB PO PRN (14:30)
[2023-03-11] MEDS: NACL 0.9% 1,000 ML IV SCH (14:30)
[2023-03-11] MEDS ORDERED: MAGNESIUM OXIDE 400 MG TAB PO PRN (14:30)
[2023-03-11] MEDS ORDERED: ONDANSETRON 4 MG/2 ML VIAL IVP PRN (14:30)
[2023-03-11] MEDS ORDERED: ACETAMINOPHEN 325 MG TAB PO PRN (14:30)
--- NOTE | 2023-03-11 15:08 | NUR ---
PER PATIENT, TAKES NO MEDICATION. MED REC COMPLETE.
--- NOTE | 2023-03-11 15:50 | NUR ---
Patient will be admitted to care of MD DELIA. Admited to [facility]. Will go to [id number]. Belongings list completed. Report to MAUDE POWELL.
[2023-03-11 17:26] VITALS: BP 107/62
[2023-03-11] MEDS ORDERED: MORPHINE SULFATE 4 MG/ML SYR IVP PRN (18:40)
--- NOTE | 2023-03-11 19:08 | NUR ---
PT FELT SOB [id number]
--- NOTE | 2023-03-11 19:30 | NUR ---
RECEIVED PATIENT FROM AM NURSE FOR CONTINUITY OF CARE. PATIENT IS STABLE
--- NOTE | 2023-03-11 19:45 | NUR ---
GAVE REPORT TO THE NIGHT NURSE PT STABLE. [id number]
--- NOTE | 2023-03-11 19:50 | NUR ---
RECEIVED PATIENT FROM AM NURSE FOR CONTINUITY OF CARE. PT IS STABLE
[2023-03-11 20:00] VITALS: BP 105/59
--- NOTE | 2023-03-11 22:50 | NUR ---
TRANSFERRED PATIENT FROM 119B TO 111A
--- NOTE | 2023-03-12 02:08 | NUR ---
PATIENT ASLEEP, ALL SAFETY MEASURES IN PLACE , CALL LIGHT WITHIN EASY REACH, NO DISTRESS NOTED
[2023-03-12] MEDS: NACL 0.9% 1,000 ML IV SCH (03:06)
[2023-03-12 04:00] VITALS: BP 97/63
[2023-03-12 06:34] LABS: ANION GAP 13.1 (8-16); CARBON DIOXIDE 24.6 mmol/L (21-32); CREATININE 0.7 mg/dL (0.6-1.3); MAGNESIUM 1.8 mg/dL (1.8-2.4); PHOSPHORUS 3.6 mg/dL (2.5-4.9); POTASSIUM 3.7 mmol/L (3.5-5.1)
--- NOTE | 2023-03-12 07:15 | NUR ---
ENDORSED PATIENT IN STABLE CONDITION TO AM NURSE FOR CONTINUITY OF CARE
--- NOTE | 2023-03-12 07:16 | NUR ---
RECEIVED PT FROM [employer] NURSE FOR CONTINUITY OF CARE. PT IN BED AWAKE, AOX3. ABLE TO VERBALIZE NEEDS. ON 3L O2 VIA NC. IV ON RAC 20G INFUSING NS @ 80. CALL LIGHT WITHIN REACH. ALL SAFETY PRECAUTIONS IN PLACE.
[2023-03-12 07:53] LABS: BASOPHILS % (AUTO) 0.5 % (0.0-2.0); EOSINOPHILS # (AUTO) 0.1 K/uL (0-0.4); EOSINOPHILS % (AUTO) 0.6 % (0.0-4.0); HEMATOCRIT 35.6 % (36-48); HEMOGLOBIN 12.2 g/dL (12.0-16.0); LYMPHOCYTES # (AUTO) 2.9 K/uL (2.5-16.5); LYMPHOCYTES % (AUTO) 35.1 % (20.5-51.1); MEAN CORPUSCULAR HEMOGLOBIN 30 pg (27-31); MEAN CORPUSCULAR HGB CONC 34 g/dL (33-37); MEAN CORPUSCULAR VOLUME 87.8 fL (80-94); MONOCYTES # (AUTO) 0.5 K/uL (0.8-1.0); MONOCYTES % (AUTO) 5.5 % (1.7-9.3); NEUTROPHILS # (AUTO) 4.8 K/uL (1.8-7.7); NEUTROPHILS % (AUTO) 58.3 % (42.2-75.2); PLATELET COUNT (AUTO) 213 K/uL (140-450); RED BLOOD CELL COUNT(AUTO) 4.06 MIL/uL (4.20-5.40); RED CELL DISTRIBUTION WIDTH 13.2 % (11.6-13.7); WHITE BLOOD COUNT (AUTO) 8.2 K/uL (4.8-10.8)
[2023-03-12 08:00] VITALS: BP 129/79
--- NOTE | 2023-03-12 08:45 | NUR ---
PATIENT HAS BEEN SCREENED AND CATEGORIZED LOW NUTRITION RISK. PATIENT WILL BE SEEN WITHIN 7 DAYS OF ADMISSION. 03/18/[address]
--- NOTE | 2023-03-12 08:48 | NUR ---
ADMINISTERED ALL SCHEDULED MEDS. PT TOLERATING WELL.
[2023-03-12] MEDS ORDERED: DOCUSATE SODIUM 100 MG GELCAP PO SCH (09:00)
--- NOTE | 2023-03-12 11:51 | NUR ---
DC [age] YRS OLD FEMALE PATIENT WAS ADMITTED FROM HOME WITH A DX OF ABDOMINAL PAIN. PATIENT HAS A HX OF DM, SCHIZOPHRENIA AND. CT ABD/PELVIS SHOWED NON-OBSTRUCTING TINY LEFT KIDNEY STONE AND FINDINGS OF LEFT LOWER PELVIC LIKELY CONTAINING LEFT OVARY. ADMINISTERED IVF, AND PAIN MEDS. CONSULTED WITH GENERAL SURGEON. DC PLAN TO GO HOME WHEN STABLE. CM TO FOLLOW.
--- NOTE | 2023-03-12 13:50 | NUR ---
NURSE CALLED OUT TO [facility] BY [facility]ES [facility]. PT WAS FULLY DRESSED AND ATTEMPTING TO LEAVE. PT INFORMED NURSE SHE HAS TO GO, THAT SHE HAS TO GO TAKE CARE OF HER DAUGHTER AT HOME. ASKED PT BACK INTO ROOM. IV CATHETHER ON FLOOR HANGING FROM IV, ASKED PT IF NURSE COULD PLACE A DRESSING OVER IV SITE. PT DECLINED. PROVIDED PT TEACHING REGARDING RISKS/BENEFITS OF LEAVING AMA. PT STATES "I AM LEAVING, THE ONLY REASON I HAVENT LEFT IS BECAUSE I CANT FIGURE OUT HOW TO GET OUT OF HERE... I NEED HELP FINDING THE EXIT" ADVISED PT TO WAIT TO SEE . PT STATES "ITS TIME FOR ME TO LEAVE, I WAS TREATED ALREADY AND I AM BETTER. I'VE GOT TO GO." NAME BAND REMOVED. PT [facility].
== END 2023-03-12 14:00 | disposition left against medical advice (07) | DRG 254 ==
LOC: MED 07:55 → OBSVTOIN 14:30 → MTU 14:30 → EEVIPCON 14:30 → MTU 15:39
PROVIDERS: ADMIT Hospitalist; ATTEND Emergency Medicine
DX: K43.9 Ventral hernia without obstruction or gangrene (principal); E11.9 Type 2 diabetes mellitus without complications; I10 Essential (primary) hypertension; F20.9 Schizophrenia, unspecified; Z20.822 Contact with and (suspected) exposure to COVID-19; N20.0 Calculus of kidney; Z59.00 Homelessness unspecified; Z88.0 Allergy status to penicillin
CPT/HCPCS: 36415; 80048; 80053; 81001; 82948; 83605; 83690; 83735; 84100; 85025; 87040; 87081; 87086; 96361; 96374; 96375; 99285; J1644; J1885; J2270; J2405

== ENCOUNTER 2023-07-01 09:08 | Emergency (ER) | payer OTHER ==
[~2023-07-01] VITALS: Ht 157.5 cm; Wt 74.8 kg
[2023-07-01 09:10] VITALS: BP 123/57; PULSE 84; RESP 17; TEMP 97.4; O2SAT 97
== END 2023-07-01 10:18 | disposition left against medical advice (07) ==
LOC: MED 09:08
DX: R51.9 Headache, unspecified (principal); R11.0 Nausea; Z53.21 Procedure and treatment not carried out due to patient leaving prior to being seen by health care provider
CPT/HCPCS: 99281

== ENCOUNTER 2023-08-03 08:58 | Emergency (ER) | payer OTHER ==
[~2023-08-03] VITALS: Ht 147.3 cm; Wt 73.5 kg
[2023-08-03 09:04] VITALS: BP 103/53; PULSE 78; RESP 18; TEMP 97.6; O2SAT 97
[2023-08-03] MEDS ORDERED: ONDANSETRON 4 MG ODT PO ONE (09:50)
[2023-08-03] MEDS ORDERED: KETOROLAC 30 MG/ML VIAL IM ONE (09:50)
[2023-08-03 10:18] LABS: APPEARANCE,URINE CLEAR (CLEAR); BILIRUBIN,URINE NEGATIVE (NEGATIVE); BLOOD, URINE TRACE-I (NEGATIVE); COLOR,URINE YELLOW (YELLOW); LEUKOCYTE ESTERASE ,URINE NEGATIVE (NEGATIVE); NITRITE, URINE NEGATIVE (NEGATIVE); PROTEIN,URINE NEGATIVE (NEGATIVE); UGLUCOSE NEGATIVE (NEGATIVE); UROBILINOGEN,URINE 0.2 EU/dL (0.2 - 1)
[2023-08-03 10:54] LABS: ALANINE AMINOTRANSFERASE 34 U/L (12-78); ALKALINE PHOSPHATASE 109 U/L (50-136); ASPARTATE AMINOTRANSFERASE 27 U/L (15-37); CALCIUM 8.9 mg/dL (8.5-10.1); CARBON DIOXIDE 29.5 mmol/L (21-32); CHLORIDE 103 mmol/L (98-107); CREATININE 0.8 mg/dL (0.6-1.3); GFR ARICAN-AMERICAN 96 mL/min (>90); GFR NON ARICAN-AMERICAN 79 mL/min (>90); GLUCOSE 103 mg/dL (74-106); LIPASE 32 U/L (16-77); POTASSIUM 3.5 mmol/L (3.5-5.1); SODIUM SERUM 140 mmol/L (136-145); TOTAL BILIRUBIN 0.5 mg/dL (0.0-1.0); TOTAL PROTEIN, SERUM 7.3 g/dL (6.4-8.2); UREA NITROGEN, BLOOD 13 mg/dL (7-18)
[2023-08-03 10:59] LABS: FLU A ANTIGEN negative (NEGATIVE); FLU B ANTIGEN negative (NEGATIVE)
[2023-08-03 11:00] LABS: BASOPHILS % (AUTO) 0.4 % (0.0-2.0); EOSINOPHILS % (AUTO) 0.6 % (0.0-4.0); HEMATOCRIT 39.6 % (36-48); HEMOGLOBIN 13.7 g/dL (12.0-16.0); LYMPHOCYTES # (AUTO) 2.6 K/uL (2.5-16.5); LYMPHOCYTES % (AUTO) 34.7 % (20.5-51.1); MEAN CORPUSCULAR HEMOGLOBIN 30 pg (27-31); MEAN CORPUSCULAR HGB CONC 35 g/dL (33-37); MONOCYTES # (AUTO) 0.4 K/uL (0.8-1.0); NEUTROPHILS # (AUTO) 4.5 K/uL (1.8-7.7); NEUTROPHILS % (AUTO) 59.3 % (42.2-75.2); PLATELET COUNT (AUTO) 234 K/uL (140-450); RED CELL DISTRIBUTION WIDTH 13.2 % (11.6-13.7); WHITE BLOOD COUNT (AUTO) 7.6 K/uL (4.8-10.8)
[2023-08-03] MEDS ORDERED: IBUP-2213 PO (11:13)
[2023-08-03] MEDS ORDERED: ONDA-188 PO (11:13)
[2023-08-03 11:30] VITALS: BP 109/62; PULSE 78; RESP 18; TEMP 97.6; O2SAT 98
== END 2023-08-03 11:30 | disposition home or self-care (01) ==
LOC: MED 08:58
DX: B34.9 Viral infection, unspecified (principal); Z20.822 Contact with and (suspected) exposure to COVID-19; R11.2 Nausea with vomiting, unspecified; E11.9 Type 2 diabetes mellitus without complications; I10 Essential (primary) hypertension; Z79.4 Long term (current) use of insulin; Z79.899 Other long term (current) drug therapy
CPT/HCPCS: 36415; 71045; 80053; 81003; 83690; 84484; 85025; 87426; 87804; 93005; 96372; 99285; J1885; Q0162

== ENCOUNTER 2023-10-09 07:39 | Emergency (ER) | payer OTHER ==
[~2023-10-09] VITALS: Ht 152.4 cm; Wt 73.9 kg
[~2023-10-09 07:39] MED LIST changes: -ACET-10509 PO; -ATA25 PO; -BEN10 PO; -BENZ-300 PO; -CEFP200T20 PO; -FAMO-90 PO; -IMO2 PO; -METO-486 PO; +ONDA-188 PO; -ONDA-188 SL; -PRED20TA5 PO; -PROM118S5 PO
[2023-10-09 07:40] VITALS: BP 121/79; PULSE 88; RESP 18; TEMP 98; O2SAT 99
[2023-10-09] MEDS ORDERED: ALUMINUM HYD/MAG/SIMETHICONE 30 ML UDC PO ONE (08:05)
[2023-10-09] MEDS ORDERED: ACETAMINOPHEN EXTRA STRENGTH 500 MG TAB PO ONE (08:05)
[2023-10-09] MEDS ORDERED: KETOROLAC 30 MG/ML VIAL IM ONE (08:05)
[2023-10-09] MEDS ORDERED: FAMOTIDINE 20 MG TAB PO ONE (08:05)
[2023-10-09 08:29] LABS: BASOPHILS % (AUTO) 0.5 % (0.0-2.0); EOSINOPHILS # (AUTO) 0.1 K/uL (0-0.4); EOSINOPHILS % (AUTO) 0.7 % (0.0-4.0); HEMATOCRIT 40.3 % (36-48); HEMOGLOBIN 13.9 g/dL (12.0-16.0); LYMPHOCYTES # (AUTO) 2.2 K/uL (2.5-16.5); LYMPHOCYTES % (AUTO) 25.7 % (20.5-51.1); MEAN CORPUSCULAR HEMOGLOBIN 31 pg (27-31); MEAN CORPUSCULAR HGB CONC 35 g/dL (33-37); MEAN CORPUSCULAR VOLUME 88.3 fL (80-94); MONOCYTES # (AUTO) 0.4 K/uL (0.8-1.0); MONOCYTES % (AUTO) 4.8 % (1.7-9.3); NEUTROPHILS # (AUTO) 5.9 K/uL (1.8-7.7); NEUTROPHILS % (AUTO) 68.3 % (42.2-75.2); PLATELET COUNT (AUTO) 237 K/uL (140-450); RED BLOOD CELL COUNT(AUTO) 4.57 MIL/uL (4.20-5.40); RED CELL DISTRIBUTION WIDTH 12.9 % (11.6-13.7); WHITE BLOOD COUNT (AUTO) 8.7 K/uL (4.8-10.8)
[2023-10-09 08:39] LABS: ANION GAP 10.3 (8-16); CALCIUM 8.9 mg/dL (8.5-10.1); CARBON DIOXIDE 29.8 mmol/L (21-32); CREATININE 0.7 mg/dL (0.6-1.3); POTASSIUM 4.1 mmol/L (3.5-5.1)
[2023-10-09 09:08] LABS: THYROID STIMULATING HORMONE 1.57 uIU/mL (0.34-3.74)
[2023-10-09 09:15] LABS: ALCOHOL, BLOOD < 3 mg/dL (<10)
[2023-10-09] MEDS ORDERED: ACETAMINOPHEN EXTRA STRENGTH 500 MG TAB ONE (09:31)
[2023-10-09] MEDS ORDERED: ALUMINUM HYD/MAG/SIMETHICONE 30 ML UDC ONE (09:32)
[2023-10-09] MEDS ORDERED: FAMOTIDINE 20 MG TAB ONE (09:33)
[2023-10-09] MEDS ORDERED: KETOROLAC 30 MG/ML VIAL ONE (09:33)
[2023-10-09] MEDS ORDERED: METO100T14 PO (10:10)
[2023-10-09] MEDS ORDERED: LOSA-272 PO (10:10)
[2023-10-09] MEDS ORDERED: ASPI-1822 PO (10:10)
[2023-10-09] MEDS ORDERED: HYDR-4004 PO (10:10)
[2023-10-09] MEDS ORDERED: ISOS10TA9 PO (10:10)
[2023-10-09 10:22] LABS: FLU A ANTIGEN negative (NEGATIVE); FLU B ANTIGEN NEGATIVE (NEGATIVE)
[2023-10-09 10:52] LABS: AMPHETAMINE, URINE NEGATIVE ng/ml (NEG <=1000); BARBITURATE, URINE NEGATIVE ng/ml (NEG <=200); BENZODIAZEPINE, URINE NEGATIVE ng/mL (NEG <=200); CANNABINOID, URINE NEGATIVE ng/mL (NEG <=50); COCAINE, URINE NEGATIVE ng/mL (NEG <=300); OPIATE, URINE NEGATIVE ng/mL (NEG <=2000); PHENCYCLIDINE SCREEN,URINE NEGATIVE ng/mL (NEG <=25)
[2023-10-09] MEDS ORDERED: QUEtiapine FUMARATE 25 MG TAB PO SCH (21:00)
[2023-10-10 07:22] VITALS: O2SAT 97
[2023-10-10 07:47] VITALS: O2SAT 97
[2023-10-10 13:05] VITALS: BP 100/67; PULSE 73; RESP 17; TEMP 97.9; O2SAT 98
== END 2023-10-10 13:05 ==
LOC: MED 07:39
DX: F29 Unspecified psychosis not due to a substance or known physiological condition (principal); R45.850 Homicidal ideations; R07.9 Chest pain, unspecified; Z20.822 Contact with and (suspected) exposure to COVID-19; E11.9 Type 2 diabetes mellitus without complications; I10 Essential (primary) hypertension; Z79.899 Other long term (current) drug therapy; Z79.82 Long term (current) use of aspirin; Z79.1 Long term (current) use of non-steroidal anti-inflammatories (NSAID); Z88.0 Allergy status to penicillin
CPT/HCPCS: 36415; 71045; 80048; 80305; 84443; 84484; 85025; 87426; 87804; 93005; 96372; 99285; G0482; J1885

== ENCOUNTER 2023-11-15 08:38 | Emergency (ER) | payer OTHER ==
[~2023-11-15] VITALS: Ht 172.7 cm; Wt 73.9 kg
[~2023-11-15 08:38] MED LIST changes: +ACET-10509 PO; +ASPI-1822 PO; +HYDR-4004 PO; +ISOS10TA9 PO; +LOSA-272 PO; +METO100T14 PO
[2023-11-15 08:57] VITALS: BP 108/60; PULSE 71; RESP 16; TEMP 98.1; O2SAT 99
[2023-11-15] MEDS ORDERED: ACET-10509 PO (09:31)
[2023-11-15] MEDS: ACETAMINOPHEN EXTRA STRENGTH 500 MG TAB PO ONE (09:45)
[2023-11-15] MEDS: ONDANSETRON 4 MG ODT PO ONE (09:45)
[2023-11-15 09:56] VITALS: BP 115/60; PULSE 86; RESP 16; TEMP 98.6; O2SAT 99
== END 2023-11-15 09:58 | disposition home or self-care (01) ==
LOC: MERGE 08:38 → MED 08:38
DX: H92.02 Otalgia, left ear (principal); R51.9 Headache, unspecified; R11.0 Nausea; Z79.899 Other long term (current) drug therapy
CPT/HCPCS: 99283; Q0162

== ENCOUNTER 2023-11-17 09:21 | Emergency (ER) | payer OTHER ==
[~2023-11-17] VITALS: Ht 157.5 cm; Wt 73.9 kg
[2023-11-17 09:31] VITALS: BP 97/52; PULSE 86; RESP 12; TEMP 98.4; O2SAT 97
[2023-11-17 10:12] LABS: BASOPHILS # (AUTO) 0.1 K/uL (0.00-0.22); BASOPHILS % (AUTO) 0.8 % (0.0-2.0); EOSINOPHILS % (AUTO) 0.6 % (0.0-4.0); HEMATOCRIT 38.2 % (36-48); HEMOGLOBIN 13.1 g/dL (12.0-16.0); LYMPHOCYTES # (AUTO) 1.9 K/uL (2.5-16.5); LYMPHOCYTES % (AUTO) 29.6 % (20.5-51.1); MEAN CORPUSCULAR HEMOGLOBIN 30 pg (27-31); MEAN CORPUSCULAR HGB CONC 34 g/dL (33-37); MEAN CORPUSCULAR VOLUME 89.1 fL (80-94); MONOCYTES # (AUTO) 0.3 K/uL (0.8-1.0); NEUTROPHILS # (AUTO) 4.3 K/uL (1.8-7.7); PLATELET COUNT (AUTO) 216 K/uL (140-450); RED BLOOD CELL COUNT(AUTO) 4.29 MIL/uL (4.20-5.40); RED CELL DISTRIBUTION WIDTH 12.9 % (11.6-13.7); WHITE BLOOD COUNT (AUTO) 6.6 K/uL (4.8-10.8)
[2023-11-17] MEDS: ACETAMINOPHEN 325 MG TAB PO ONE (10:13)
[2023-11-17 10:20] LABS: ANION GAP 13.2 (8-16); CALCIUM 9.1 mg/dL (8.5-10.1); CARBON DIOXIDE 29.7 mmol/L (21-32); CREATININE 0.8 mg/dL (0.6-1.3); POTASSIUM 3.9 mmol/L (3.5-5.1)
[2023-11-17 10:31] LABS: ALANINE AMINOTRANSFERASE 27 U/L (12-78); ALBUMIN 3.5 g/dL (3.4-5.0); ALKALINE PHOSPHATASE 93 U/L (50-136); ASPARTATE AMINOTRANSFERASE 18 U/L (15-37); BILIRUBIN,DIRECT 0.1 mg/dL (0.0-0.3); TOTAL BILIRUBIN 0.2 mg/dL (0.0-1.0); TOTAL PROTEIN, SERUM 7.4 g/dL (6.4-8.2)
[2023-11-17] MEDS ORDERED: ACET-10509 PO (10:34)
[2023-11-17 11:08] VITALS: BP 114/64; PULSE 78; RESP 12; TEMP 98.4; O2SAT 97
== END 2023-11-17 11:08 | disposition home or self-care (01) ==
LOC: MED 09:21
DX: R07.9 Chest pain, unspecified (principal); E11.9 Type 2 diabetes mellitus without complications; I10 Essential (primary) hypertension; Z79.4 Long term (current) use of insulin; Z79.899 Other long term (current) drug therapy
CPT/HCPCS: 36415; 71045; 80048; 80076; 84484; 85025; 93005; 99285

== ENCOUNTER 2023-12-09 07:20 | Emergency (ER) | payer OTHER ==
[~2023-12-09] VITALS: Ht 152.4 cm; Wt 72.6 kg
[2023-12-09 07:23] VITALS: BP 115/96; PULSE 117; RESP 16; TEMP 98.5; O2SAT 97
[2023-12-09] MEDS ORDERED: ACETAMINOPHEN EXTRA STRENGTH 500 MG TAB PO ONE (07:55)
[2023-12-09] MEDS ORDERED: ACET-10509 PO (07:58)
[2023-12-09 08:09] VITALS: BP 115/96; PULSE 117; RESP 16; TEMP 98.5; O2SAT 97
== END 2023-12-09 08:08 | disposition home or self-care (01) ==
LOC: MED 07:20
DX: B34.9 Viral infection, unspecified (principal); R51.9 Headache, unspecified; E11.9 Type 2 diabetes mellitus without complications; I10 Essential (primary) hypertension; Z79.899 Other long term (current) drug therapy; Z79.82 Long term (current) use of aspirin; Z88.0 Allergy status to penicillin
CPT/HCPCS: 99283

== ENCOUNTER 2023-12-31 09:55 | Emergency (ER) | payer OTHER ==
[~2023-12-31] VITALS: Ht 142.2 cm; Wt 71.7 kg
[2023-12-31 10:20] VITALS: BP 106/66; PULSE 67; RESP 16; TEMP 98.3; O2SAT 100
[2023-12-31 11:30] LABS: APPEARANCE,URINE CLEAR (CLEAR); BILIRUBIN,URINE NEGATIVE (NEGATIVE); BLOOD, URINE TRACE-I (NEGATIVE); COLOR,URINE YELLOW (YELLOW); LEUKOCYTE ESTERASE ,URINE NEGATIVE (NEGATIVE); NITRITE, URINE NEGATIVE (NEGATIVE); PROTEIN,URINE NEGATIVE (NEGATIVE); UGLUCOSE NEGATIVE (NEGATIVE); UROBILINOGEN,URINE 0.2 EU/dL (0.2 - 1)
[2023-12-31] MEDS: KETOROLAC 30 MG/ML VIAL IM ONE (11:31)
[2023-12-31 11:33] LABS: BASOPHILS % (AUTO) 0.6 % (0.0-2.0); EOSINOPHILS % (AUTO) 0.4 % (0.0-4.0); HEMOGLOBIN 12.9 g/dL (12.0-16.0); LYMPHOCYTES # (AUTO) 2.6 K/uL (2.5-16.5); LYMPHOCYTES % (AUTO) 34.5 % (20.5-51.1); MEAN CORPUSCULAR HEMOGLOBIN 30 pg (27-31); MEAN CORPUSCULAR HGB CONC 34 g/dL (33-37); MONOCYTES # (AUTO) 0.4 K/uL (0.8-1.0); MONOCYTES % (AUTO) 4.6 % (1.7-9.3); NEUTROPHILS # (AUTO) 4.6 K/uL (1.8-7.7); NEUTROPHILS % (AUTO) 59.9 % (42.2-75.2); PLATELET COUNT (AUTO) 227 K/uL (140-450); RED BLOOD CELL COUNT(AUTO) 4.27 MIL/uL (4.20-5.40); RED CELL DISTRIBUTION WIDTH 12.9 % (11.6-13.7); WHITE BLOOD COUNT (AUTO) 7.7 K/uL (4.8-10.8)
[2023-12-31 11:49] LABS: ANION GAP 10.9 (8-16); CALCIUM 8.9 mg/dL (8.5-10.1); CARBON DIOXIDE 28.6 mmol/L (21-32); CREATININE 0.8 mg/dL (0.6-1.3); POTASSIUM 3.5 mmol/L (3.5-5.1)
[2023-12-31 11:50] LABS: BACTERIA,URINE FEW /HPF (None Seen); RBC,URINE 0-5 /HPF (0-5); SQUAMOUS EPITHELIAL CELL,UR 4-10 (MOD) /LPF (0-3 (FEW)); WBC,URINE 0-5 /HPF (0-5)
[2023-12-31 11:58] LABS: ALBUMIN 3.7 g/dL (3.4-5.0); BILIRUBIN,DIRECT 0.1 mg/dL (0.0-0.3); TOTAL BILIRUBIN 0.5 mg/dL (0.0-1.0); TOTAL PROTEIN, SERUM 6.7 g/dL (6.4-8.2)
[2023-12-31 12:18] VITALS: TEMP 98
[2023-12-31] MEDS ORDERED: ALUMINUM HYD/MAG/SIMETHICONE 30 ML UDC PO ONE (12:55)
[2023-12-31] MEDS ORDERED: DICYCLOMINE HCL LIQUID 10 MG/5 ML UDC PO ONE (12:55)
[2023-12-31] MEDS ORDERED: ACETAMINOPHEN EXTRA STRENGTH 500 MG TAB PO ONE (12:55)
[2023-12-31 13:32] VITALS: BP 115/63; PULSE 78; RESP 18; O2SAT 100
== END 2023-12-31 13:32 | disposition home or self-care (01) ==
LOC: MED 09:55
DX: R10.30 Lower abdominal pain, unspecified (principal); R11.2 Nausea with vomiting, unspecified; R30.0 Dysuria; E11.9 Type 2 diabetes mellitus without complications; I10 Essential (primary) hypertension; Z88.0 Allergy status to penicillin; Z79.4 Long term (current) use of insulin; Z79.899 Other long term (current) drug therapy
CPT/HCPCS: 36415; 80048; 80076; 81001; 83690; 85025; 96372; 99283; J1885

== ENCOUNTER 2024-01-28 10:26 | Emergency (ER) | payer OTHER ==
[~2024-01-28] VITALS: Ht 154.9 cm; Wt 72.1 kg
[2024-01-28 10:32] VITALS: BP 107/63; PULSE 78; RESP 15; TEMP 98.1; O2SAT 78
[2024-01-28] MEDS: KETOROLAC 60 MG/2 ML VIAL IM ONE (10:50)
[2024-01-28] MEDS ORDERED: IBUP-2213 PO (10:54)
[2024-01-28 11:00] VITALS: BP 107/63; PULSE 78; RESP 15; TEMP 98.1; O2SAT 78
== END 2024-01-28 11:00 | disposition home or self-care (01) ==
LOC: MED 10:26
DX: J02.9 Acute pharyngitis, unspecified (principal); H92.01 Otalgia, right ear; R51.9 Headache, unspecified; E11.9 Type 2 diabetes mellitus without complications; I10 Essential (primary) hypertension; Z79.4 Long term (current) use of insulin; Z79.899 Other long term (current) drug therapy
CPT/HCPCS: 96372; 99283; J1885

== ENCOUNTER 2024-05-31 08:51 | Emergency (ER) | payer OTHER ==
[~2024-05-31] VITALS: Ht 127 cm; Wt 71.2 kg
[~2024-05-31 08:51] MED LIST changes: -ACET-10509 PO; +ACET500T99 PO
[2024-05-31 09:13] VITALS: BP 115/74; PULSE 72; RESP 18; TEMP 98.1; O2SAT 98
[2024-05-31 10:22] LABS: BASOPHILS % (AUTO) 0.4 % (0.0-2.0); EOSINOPHILS # (AUTO) 0.1 K/uL (0-0.4); EOSINOPHILS % (AUTO) 0.7 % (0.0-4.0); HEMATOCRIT 40.8 % (36-48); HEMOGLOBIN 13.8 g/dL (12.0-16.0); LYMPHOCYTES # (AUTO) 2.1 K/uL (2.5-16.5); MEAN CORPUSCULAR HEMOGLOBIN 30 pg (27-31); MEAN CORPUSCULAR HGB CONC 34 g/dL (33-37); MEAN CORPUSCULAR VOLUME 88.9 fL (80-94); MONOCYTES # (AUTO) 0.3 K/uL (0.8-1.0); MONOCYTES % (AUTO) 4.4 % (1.7-9.3); NEUTROPHILS # (AUTO) 4.9 K/uL (1.8-7.7); NEUTROPHILS % (AUTO) 66.5 % (42.2-75.2); PLATELET COUNT (AUTO) 242 K/uL (140-450); RED BLOOD CELL COUNT(AUTO) 4.58 MIL/uL (4.20-5.40); WHITE BLOOD COUNT (AUTO) 7.4 K/uL (4.8-10.8)
[2024-05-31 10:41] LABS: ANION GAP 13.7 (8-16); CARBON DIOXIDE 24.9 mmol/L (21-32); CREATININE 0.8 mg/dL (0.6-1.3); POTASSIUM 3.6 mmol/L (3.5-5.1); TOTAL BILIRUBIN 0.6 mg/dL (0.0-1.0); TOTAL PROTEIN, SERUM 7.3 g/dL (6.4-8.2)
[2024-05-31] MEDS ORDERED: ONDA-188 SL (10:59)
== END 2024-05-31 11:20 | disposition home or self-care (01) ==
LOC: MED 08:51
DX: R19.7 Diarrhea, unspecified (principal); R11.10 Vomiting, unspecified; Z79.82 Long term (current) use of aspirin; Z79.1 Long term (current) use of non-steroidal anti-inflammatories (NSAID); Z79.899 Other long term (current) drug therapy; Z88.0 Allergy status to penicillin
CPT/HCPCS: 36415; 80053; 83690; 85025; 99283

== ENCOUNTER 2024-07-04 10:32 | Emergency (ER) | payer OTHER ==
[~2024-07-04] VITALS: Ht 152.4 cm; Wt 68.0 kg
[~2024-07-04 10:32] MED LIST changes: +ONDA-188 SL
[2024-07-04 11:25] VITALS: BP 123/85; PULSE 74; RESP 20; TEMP 98.7; O2SAT 100
[2024-07-04] MEDS ORDERED: LORA10SG1 PO (13:16)
[2024-07-04] MEDS ORDERED: FLONAS NS (13:16)
[2024-07-04] MEDS ORDERED: SUD30 PO (13:16)
[2024-07-04] MEDS ORDERED: IBUP-2213 PO (13:16)
[2024-07-04] MEDS: IBUPROFEN 600 MG TAB PO ONE (13:28)
== END 2024-07-04 13:50 | disposition home or self-care (01) ==
LOC: MED 10:32
DX: J06.9 Acute upper respiratory infection, unspecified (principal); Z79.899 Other long term (current) drug therapy; Z79.82 Long term (current) use of aspirin; Z88.0 Allergy status to penicillin
CPT/HCPCS: 99282